=== PATIENT | female | born 1945 ===

== ENCOUNTER 2016-07-15 09:59 | Emergency (ER) | payer MEDICARE, OTHER ==
[2015-08-11 13:57] VITALS: BMI 18.3
[2016-07-15 22:49] LABS: ADD MANUAL DIFF? NO
[2016-07-16 04:59] LABS: BLOOD UREA NITROGEN 19 mg/dL (7-21); CALCIUM 10.1 mg/dL (8.4-10.5); CARBON DIOXIDE 30 mmol/L (21-33); CHLORIDE 100 mmol/L (98-107); GFR AFRICAN-AMERICAN > 60; GLUCOSE,RANDOM 101 mg/dL (70-110); MAGNESIUM 2.1 mg/dL (1.7-2.2); POTASSIUM 3.9 mmol/L (3.6-5.0); SODIUM 141 mmol/L (132-148)
[2016-07-16 12:13] LABS: PH,URINE 6.5 (4.7-8.0); URINE APPEARANCE CLEAR (CLEAR); URINE BILIRUBIN NEGATIVE (NEGATIVE); URINE BLOOD SMALL (NEGATIVE); URINE COLOR YELLOW (YELLOW); URINE GLUCOSE (UA) NEGATIVE (NEGATIVE); URINE KETONE NEGATIVE (NEGATIVE); URINE LEUKOCYTE ESTERASE NEGATIVE Leu/uL (NEGATIVE); URINE PROTEIN NEGATIVE mg/dL (<30 mg/dL); URINE UROBILINOGEN 0.2 E.U./dL (<1 E.U./dL)
[2016-07-16 12:14] LABS: URINE RBC 15 - 20 /hpf (0-2)
--- NOTE | 2016-07-16 15:29 | CT ---
PROCEDURE: CT abdomen pelvis dated 07/15/16 HISTORY: Right-sided flank pain. COMPARISON: No prior TECHNIQUE: Contiguous s axial images of the abdomen and pelvis. Oral contrast was administered. No IV contrast given. Coronal and Sagittal reformats generated. Radiation dose: Total exam DLP = 272.6 mGy-cm. This CT exam was performed using one or more of the following dose reduction techniques: Automated exposure control, adjustment of the mA and/or kV according to patient size, and/or use of iterative reconstruction technique. FINDINGS: LOWER THORAX: Minor passive atelectasis both posterior lower lung alaniz. No focal consolidation or effusion. No evidence of basilar pneumothorax. There is small hiatal hernia with slight wall thickening of the distal esophagus that could be due to protrusion of gastric mucosa. Esophagitis or other intrinsic/invasive wall lesion not excluded. LIVER: The liver exhibits normal size measuring nearly 12 cm in CC dimension. No obvious hepatic mass collection or calcification. GALLBLADDER AND BILE DUCTS: Gallbladder is physiologically distended. No evidence of intraluminal gallbladder calculi. PANCREAS: Visualized portions of the pancreas appear grossly unremarkable without obvious mass collection or calcification. No significant ductal dilatation. SPLEEN: Spleen exhibits normal size and attenuation pattern. ADRENALS: Slightly nodular appearing left adrenal gland ; the possibility of a small underlying nodule not completely excluded. Followup interval recommended to assess stability. KIDNEYS AND URETERS: Kidneys exhibit relatively symmetric size. No definitive evidence of nephrolithiasis. There is mild columnization of right ureter and to a lesser degree left ureter. BLADDER: Urinary bladder is markedly distended. Rule out urinary retention and/or bladder outlet obstruction. No evidence of intraluminal urinary bladder calculi. REPRODUCTIVE: The uterus appears somewhat compressed posteriorly by a markedly distended urinary bladder. APPENDIX: Unremarkable. BOWEL: Evaluation of the bowel is slightly limited due to the lack of oral contrast material. The stomach is incompletely distended which may account for slight thick-walled appearance. Gastritis or other intrinsic/ invasive wall lesion not excluded. Visualized loops of small bowel exhibit normal contour and caliber. No evidence of acute mechanical small bowel obstruction. There is a moderate amount of stool seen within the cecum, ascending and transverse colon consistent with fecal retention. . PERITONEUM: Unremarkable. No fluid collection. No free air. LYMPH NODES: Unremarkable. No enlarged lymph nodes. VASCULATURE: Unremarkable. No aortic aneurysm. BONES: No fracture or destructive lesion. There are multilevel chronic appearing compression endplate deformities involving the L5, L4, L1, T12 and T11 segments. Minor by concave fish-mouth endplate deformities seen at the L3 as well as T10 segments. No evidence of retropulsed fragments. Rounded sclerotic lower pole focus within the right femoral neck likely represents a osteoma OTHER FINDINGS: None. IMPRESSION: There is marked distention of the urinary bladder with mild columnization of the ureters more so on the right side. Rule out urinary retention versus bladder outlet obstruction. No evidence of nephrolithiasis. Slightly nodular appearing left adrenal gland.
[2016-07-16 16:40] LABS: BASO # 0.04 K/mm3 (0.0-2.0); BASO % 0.3 % (0.0-3.0); EOS % 0.2 % (1.5-5.0); GRAN # 10.15 (1.4-6.5); GRAN % 86.2 % (50.0-68.0); HEMATOCRIT 39.2 % (36.0-48.0); LYMPH # 1.3 (1.2-3.4); LYMPH % 10.6 % (22.0-35.0); MEAN CELL VOLUME 84.7 fL (80.0-105.0); MEAN CORPUSCULAR HEMOGLOBIN 28.1 pg (25.0-35.0); MEAN CORPUSCULAR HGB CONC 33.2 g/dl (31.0-37.0); MEAN PLATELET VOLUME 9.6 fl (7.0-11.0); MONO # 0.3 (0.1-0.6); MONO % 2.7 % (1.0-6.0); PLATELET COUNT 67 10^3/uL (120.0-450.0); RED CELL DISTRIBUTION WIDTH 13.8 % (11.5-14.5); WHITE BLOOD COUNT 11.8 10^3/ul (4.5-11.0)
[2016-07-20 03:25] LABS: ALB/GLOB RATIO 1.1 (1.1-1.8); ALKALINE PHOSPHATASE 96 U/L (38-133); ALT/SGPT 36 U/L (7-56); AST/SGOT 28 U/L (15-39); BILIRUBIN,TOTAL 0.3 mg/dL (0.2-1.3); TOTAL PROTEIN 6.2 g/dL (5.8-8.3)
== END 2016-07-15 23:00 | disposition home or self-care (01) ==
LOC: ED 09:59
DX: M54.9 Dorsalgia, unspecified (principal)

== ENCOUNTER 2016-08-10 16:42 | Inpatient (IN) | payer MEDICARE ==
[2016-08-10] MEDS ORDERED: Morphine 4 mg/ml ISec IVP STA (17:15)
--- NOTE | 2016-08-10 17:29 | ED PDOC ---
Arrival/HPI - General Chief Complaint: Back Pain Time Seen by Provider: 08/10/16 17:07 - History of Present Illness Narrative History of Present Illness (Text): 08/10/16 17:29 Patient presents complaining of back pain. States the location is in the mid- thoracic region. Worst with movement and palpation. Denies any trauma or injury. Denies cp or sob, denies ENCISO. Denies fevers/chills, denies IVDA, denies any lower extremity weakness/numbness/paresthesias. Pt denies saddle anesthesia. Denies any urinary freq or retention. Denies bowel dysfunction/ irregularity/incontinence/constipation. Past Medical History - Provider Review Nursing Documentation Reviewed: Yes - Infectious Disease Hx of Infectious Diseases: None - Tetanus Immunization Tetanus Immunization: Unknown - Cardiac Hx Pacemaker: No - Neurological Hx Paralysis: No - Renal Hx Kidney Stones: Yes - Hematological/Oncological Hx Blood Transfusions: No Hx Blood Transfusion Reaction: No - Musculoskeletal/Rheumatological Hx Musculoskeletal Disorders: Yes - Psychiatric Hx Depression: No Hx Emotional Abuse: No Hx Physical Abuse: No Hx Substance Use: No - Anesthesia Hx Anesthesia: Yes Hx Anesthesia Reactions: No Hx Malignant Hyperthermia: No - Suicidal Assessment Feels Threatened In Home Enviroment: No Family/Social History Family/Social History: Unknown Family HX Smoking Status: Never Smoked Hx Alcohol Use: No Hx Substance Use: No Allergies/Home Meds Allergies/Adverse Reactions: Allergies No Known Allergies Allergy (Verified 08/10/16 16:55) Physical Exam - Physical Exam Narrative Physical Exam (Text): - Review of Systems Constitutional: Normal. absent: Fatigue, Weight Change, Fevers Eyes: Normal ENT: denies sore throat, denies tristhmus Respiratory: Normal. absent: SOB, Cough, Sputum Cardiovascular: absent: Chest Pain, Palpitations, Syncope Gastrointestinal: Normal. absent: Abdominal Pain, Diarrhea, Nausea, Vomiting Genitourinary: Normal. absent: Dysuria, Frequency, Hematuria Musculoskeletal: back pain. absent: Arthralgias, Neck Pain Skin: no rashes, no erythema Neurological: absent: Focal Weakness Endocrine: Normal Hemo/Lymphatic: Normal Psychiatric: No suicidal or homicidal ideations Physical exam Patient appears age appropriate in no distress, speaking full sentences without difficulty Midline and paraspinal tenderness to palpation lower thoracic region. FROM of pt 's cervical, thoracic, lumbar, and sacral regions appreciated, active/passive without any difficulty. Lower extremities with full neurological and vascular intact. - Systems Exam Head: Present: Atraumatic, Normocephalic Pupils: Present: PERRL Extroacular Muscles: Present: EOMI Conjunctiva: Present: Normal Mouth: Present: Moist Mucous Membranes Neck: Present: Normal Range of Motion. No: MIDLINE TENDERNESS, Paraspinal Tenderness Respiratory/Chest: Present: Clear to Auscultation, Good Air Exchange. No: Respiratory Distress, Accessory Muscle Use, Tachypneic Cardiovascular: Present: Regular Rate and Rhythm, Normal S1, S2, Peripheal Pulses Present. No: Murmurs Abdomen: Present: Normal Bowel Sounds. No: Tenderness, Distention, Peritoneal Signs, Rebound, Guarding Upper Extremity: Present: Normal Inspection. No: Cyanosis, Edema Lower Extremity: Present: Normal Inspection. No: Edema Neurological: Present: GCS=15, Speech Normal, cranial nerves II through XII fully intact with no cerebellar abnormality, neurosensory fully intact. No focal neurological deficits. Skin: Present: Warm, Dry, Normal Color. No: Rashes Lymphatic: Present: OX3, NI, NC Psychiatric: Present: Alert, Oriented x 3, Normal Insight, Normal Concentration Vital Signs Reviewed: Yes Vital Signs Temp Pulse Resp BP Pulse Ox 08/10/16 16:59 99.1 F 89 19 151/75 H 96 Temperature: Afebrile Blood Pressure: Hypertensive Pulse: Regular Respiratory Rate: Normal Appearance: Positive for: Well-Appearing Pain Distress: None Mental Status: Positive for: Alert and Oriented X 3 Medical Decision Making ED Course and Treatment: 08/10/16 17:[address] Hernández, asked to admit to her service and obtain pre-op labs for back surgery tmr, NPO past midnight. Asked to place consult orders for Lobo De La Vega and James (pt has ITP). Pt has MRI result with T10 fx. pt aware of and agrees with plan - Medication Orders Current Medication Orders: Discontinued Medications Morphine Sulfate (Morphine) 4 mg IVP STAT STA Stop: 08/10/16 17:16 Disposition/Present on Arrival - Present on Arrival Any Indicators Present on Arrival: No History of DVT/PE: No History of Uncontrolled Diabetes: No Urinary Catheter: No History of Decub. Ulcer: No History Surgical Site Infection Following: None - Disposition Have Diagnosis and Disposition been Completed?: Yes Diagnosis: Back pain Disposition: HOSPITALIZED Disposition Time: 17:26 Patient Plan: Admission Patient Problems: Current Active Problems Problem Status Onset Back pain Acute Condition: FAIR
[2016-08-10 18:21] LABS: ADD MANUAL DIFF? NO
[2016-08-10 18:25] LABS: BASO # 0.02 K/mm3 (0.0-2.0); BASO % 0.3 % (0.0-3.0); GRAN # 5.38 (1.4-6.5); GRAN % 74.2 % (50.0-68.0); HEMATOCRIT 38.8 % (36.0-48.0); LYMPH # 1.5 (1.2-3.4); LYMPH % 20.4 % (22.0-35.0); MEAN CELL VOLUME 85.5 fL (80.0-105.0); MEAN CORPUSCULAR HEMOGLOBIN 27.8 pg (25.0-35.0); MEAN CORPUSCULAR HGB CONC 32.5 g/dl (31.0-37.0); MEAN PLATELET VOLUME 10.9 fl (7.0-11.0); MONO # 0.4 (0.1-0.6); MONO % 5.1 % (1.0-6.0); PLATELET COUNT 37 10^3/uL (120.0-450.0); RED CELL DISTRIBUTION WIDTH 13.6 % (11.5-14.5); WHITE BLOOD COUNT 7.3 10^3/ul (4.5-11.0)
[2016-08-10 18:39] LABS: PARTIAL THROMBOPLASTIN TIME 24.9 Seconds (23.7-30.8)
[2016-08-10 18:40] LABS: ALB/GLOB RATIO 1.3 (1.1-1.8); ALKALINE PHOSPHATASE 132 U/L (38-133); ALT/SGPT 40 U/L (7-56); AST/SGOT 26 U/L (15-39); BILIRUBIN,TOTAL 0.5 mg/dL (0.2-1.3); BLOOD UREA NITROGEN 22 mg/dL (7-21); CALCIUM 9.7 mg/dL (8.4-10.5); CARBON DIOXIDE 26 mmol/L (21-33); CHLORIDE 103 mmol/L (98-107); GFR AFRICAN-AMERICAN > 60; GLUCOSE,RANDOM 134 mg/dL (70-110); POTASSIUM 3.9 mmol/L (3.6-5.0); SODIUM 138 mmol/L (132-148); TOTAL PROTEIN 7.3 g/dL (5.8-8.3)
--- NOTE | 2016-08-10 18:47 | RAD ---
HISTORY: preop COMPARISON: Chest x-ray performed 08/10/16 TECHNIQUE: Chest, one view. FINDINGS: LUNGS: No focal consolidation. Please note that chest x-ray has limited sensitivity for the detection of pulmonary masses. PLEURA: No significant pleural effusion identified. No definite pneumothorax . CARDIOVASCULAR: The cardiomediastinal silhouette appears within normal limits of size. OSSEOUS STRUCTURES: No acute osseous abnormality identified. VISUALIZED UPPER ABDOMEN: Unremarkable. OTHER FINDINGS: None. IMPRESSION: No focal consolidation, significant pleural effusion, or definite pneumothorax identified.
[2016-08-10] MEDS: Sodium Chloride 0.9% 1,000 ML IV SCH (19:03)
[2016-08-10 21:00] VITALS: BMI 20.2
[2016-08-10] MEDS ORDERED: Pneumococcal 23-Valent Vaccine IM ONE (21:00)
[2016-08-11] MEDS: HYDROmorphone 0.5 mg/0.5 ml ISec IVP PRN ×3 (06:28→18:21)
[2016-08-11 10:48] LABS: ADD MANUAL DIFF? NO
[2016-08-11 10:51] LABS: BASO # 0.03 K/mm3 (0.0-2.0); BASO % 0.4 % (0.0-3.0); EOS % 0.4 % (1.5-5.0); GRAN # 5.04 (1.4-6.5); GRAN % 60.7 % (50.0-68.0); HEMATOCRIT 39.7 % (36.0-48.0); LYMPH # 2.5 (1.2-3.4); LYMPH % 29.7 % (22.0-35.0); MEAN CELL VOLUME 85.7 fL (80.0-105.0); MEAN CORPUSCULAR HEMOGLOBIN 28.3 pg (25.0-35.0); MEAN PLATELET VOLUME 10.4 fl (7.0-11.0); MONO # 0.7 (0.1-0.6); MONO % 8.8 % (1.0-6.0); PLATELET COUNT 32 10^3/uL (120.0-450.0); RED CELL DISTRIBUTION WIDTH 13.5 % (11.5-14.5); WHITE BLOOD COUNT 8.3 10^3/ul (4.5-11.0)
[2016-08-11 11:12] LABS: ALB/GLOB RATIO 1.3 (1.1-1.8); ALKALINE PHOSPHATASE 129 U/L (38-133); ALT/SGPT 38 U/L (7-56); AST/SGOT 25 U/L (15-39); BILIRUBIN,TOTAL 0.7 mg/dL (0.2-1.3); BLOOD UREA NITROGEN 14 mg/dL (7-21); CALCIUM 9.1 mg/dL (8.4-10.5); CARBON DIOXIDE 26 mmol/L (21-33); CHLORIDE 104 mmol/L (98-107); GFR AFRICAN-AMERICAN > 60; GLUCOSE,RANDOM 86 mg/dL (70-110); POTASSIUM 3.5 mmol/L (3.6-5.0); SODIUM 139 mmol/L (132-148)
[2016-08-11] MEDS ORDERED: DiphenhydrAMINE 50 mg/ml Inj ONE (13:50)
[2016-08-11] MEDS ORDERED: Lidocaine 2% Inj (20ml) ONE ×2 (14:33→15:57)
[2016-08-11] MEDS ORDERED: Iohexol 350mgl/ml 50 ML ONE (14:33)
[2016-08-11] MEDS ORDERED: Midazolam 2 MG/2 ML VIAL ONE (15:20)
--- NOTE | 2016-08-11 16:13 | CARD ---
APPROVED REPORT EKG Measurement Heart [id number] <Conclusion> Normal sinus rhythm Normal ECG
[2016-08-11] MEDS: Sodium Chloride 0.45% 1,000 ML IV SCH (18:19)
[2016-08-11] MEDS: Sodium Chloride 0.9% 1,000 ML IV SCH (18:19)
--- NOTE | 2016-08-11 19:40 | VASCULAR ---
PROCEDURE: 1. T10 kyphoplasty. 2. T10 vertebral body biopsy. HISTORY: Severe, refractory back pain. Unresponsive to bed rest and analgesics. Acute T10 compression fracture on MRI. History ITP. PHYSICIAN(S): Walker De La Vega MD. TECHNIQUE: he relative risks and indications of the procedure were explained to the patient and her family and informed written consent obtained. The patient was placed prone on the arteriography table and the thoracolumbar spine prepped and draped in the usual sterile fashion. Conscious sedation and monitoring were provided throughout the procedure by a nurse. The T10 vertebral body was carefully localized with fluoroscopy. The skin and soft tissues were anesthetized with 1% Xylocaine. Under direct fluoroscopic guidance, bilateral transpedicular bone needles were placed into the posterior aspect of the T10 vertebral body. Through the right needle, a biopsy of the [id number] body was performed. The specimen was sent to histology. Next bilateral 10 mm bone balloons were placed in the superior and anterior portion of the T10 vertebral body. They were inflated to approximately 3.5 cc apiece with dilute contrast. The balloons were removed and 5 cc of barium-impregnated PMMA cement instilled into the T10 vertebral body. Minimal right lateral extravasation was seen. The bone needles were removed. The patient tolerated the procedure well. IMPRESSION: 1. Fluoroscopically-guided T10 kyphoplasty. 2. Fluoroscopic T10 vertebral body biopsy.
[2016-08-11] MEDS: Oxycodone/Acetaminophen 5/325 mg Tab PO PRN (21:24)
[2016-08-11] MEDS ORDERED: Potassium Chloride 20 mEq ER Tab PO ONE (21:50)
--- NOTE | 2016-08-11 22:28 | CON ---
DATE: 08/11/2016 This is the patient's hospital visit on the medical floor. For Dr. Ni. Consult. CHIEF COMPLAINT: Back pain. HISTORY OF PRESENT ILLNESS: The patient is a 71-year-old Israeli-speaking female who reported to the Emergency Room. The patient of Dr. Hernández. Reported to the Emergency Room complaining of severe ba ck pain, worse with movement and denies any trauma with the patient now noted to have significant thr ombocytopenic indices. She is otherwise reporting that the analgesics help her pain to a certain ext ent with consideration for kyphoplasty by Dr. Walker De La Vega. PAST MEDICAL HISTORY: Significant for back pain, recent onset with history of ITP with recently diag nosed T10 fracture. The patient denies any other significant past medical history. ALLERGIES: No known allergies. MEDICATIONS: Include Tylenol for pain. FAMILY HISTORY AND SOCIAL HISTORY: Noncontributory. Nonsmoker and nonethanolic. REVIEW OF SYSTEMS: Essentially negative to questioning except as above. PHYSICAL EXAMINATION: VITAL SIGNS: Temperature 98.8, pulse 75, respirations 18, blood pressure 156/78, pulse ox 100%. HEENT: Unremarkable. NECK: Supple. HEART: Regular rate. LUNGS: Clear. ABDOMEN: Soft, nontender. EXTREMITIES: No edema. NEUROLOGIC: Awake and alert with increased tenderness to gentle palpation to the mid upper back. SKIN: Otherwise, warm, dry and clear. VITAL SIGNS: Temperature 99.1, pulse 89, respirations 19, blood pressure 151/75, pulse ox 96%. LABORATORY DATA: The patient had a chest x-ray done yesterday. It was read as no focal consolidatio n, significant or pneumothorax. The patient had a thoracic MRI done 10 days prior. It was emeterio d as mild compression fracture at T10 with mild marrow edema suggesting acute or subacute fracture. A lumbar spine MRI was also done that day. It was read as no evidence of spinal stenosis or focal he rniation, no acute compression fractures. She had a CT scan of her abdomen and pelvis done on 07/15/2016. It was read as moderate distension o f the bladder, mild colonization of the ureters, rule out urinary retention versus bladder obstructio n. No evidence of nephrolithiasis, slightly nodular appearing left adrenal gland. The labs for this patient were done. White blood cell count of 8.3, hemoglobin 13.1, hematocrit of 3 9.7, platelet count of 32,000 with a manual count of 55,000 done today. Her INR yesterday was 1.0. A chem panel from today showed a potassium of 3.5, otherwise normal. ASSESSMENT: Severe thrombocytopenia, ITP history, compression fracture at T10 with severe pain. PLAN: The plan for this patient is for kyphoplasty as per Dr. Walker De La Vega with platelets to be transfused prior to the procedure with continuation of the present medical regimen with analgesics f or her pain. We will monitor clinically and with labs. There is no evidence of active bleeding, no petechia noted or skin changes. We will monitor clinically and with labs. Carlo Jaime MD cc: [id number] TT: 08/11/2016 22:28:24 Confirmation # [id number] Dictation # [id number] mn
[2016-08-12] MEDS: Sodium Chloride 0.45% 1,000 ML IV SCH (05:46)
[2016-08-12 06:55] LABS: ADD MANUAL DIFF? NO
[2016-08-12 07:08] LABS: ALB/GLOB RATIO 1.2 (1.1-1.8); ALKALINE PHOSPHATASE 133 U/L (38-133); ALT/SGPT 41 U/L (7-56); AST/SGOT 28 U/L (15-39); BILIRUBIN,TOTAL 0.8 mg/dL (0.2-1.3); BLOOD UREA NITROGEN 12 mg/dL (7-21); CALCIUM 9.3 mg/dL (8.4-10.5); CARBON DIOXIDE 24 mmol/L (21-33); CHLORIDE 103 mmol/L (98-107); GFR AFRICAN-AMERICAN > 60; GLUCOSE,RANDOM 80 mg/dL (70-110); POTASSIUM 4.1 mmol/L (3.6-5.0); SODIUM 136 mmol/L (132-148); TOTAL PROTEIN 6.9 g/dL (5.8-8.3)
[2016-08-12 07:10] LABS: BASO # 0.03 K/mm3 (0.0-2.0); BASO % 0.4 % (0.0-3.0); EOS % 0.3 % (1.5-5.0); GRAN # 4.77 (1.4-6.5); HEMATOCRIT 36.1 % (36.0-48.0); LYMPH # 1.6 (1.2-3.4); MEAN CELL VOLUME 85.7 fL (80.0-105.0); MEAN CORPUSCULAR HGB CONC 32.7 g/dl (31.0-37.0); MEAN PLATELET VOLUME 8.9 fl (7.0-11.0); MONO # 0.7 (0.1-0.6); MONO % 9.3 % (1.0-6.0); PLATELET COUNT 62 10^3/uL (120.0-450.0); RED CELL DISTRIBUTION WIDTH 13.4 % (11.5-14.5); WHITE BLOOD COUNT 7.1 10^3/ul (4.5-11.0)
[2016-08-12] MEDS: Oxycodone/Acetaminophen 5/325 mg Tab PO PRN (08:25)
--- NOTE | 2016-08-12 08:31 | HP ---
CHIEF COMPLAINT: Intractable back pain. HISTORY OF PRESENT ILLNESS: The patient is a 71-year-old [place]-speaking patient who was sent to the Emergency Room from my office. Actually, patient has history of idiopathic thrombocytopenic purpura, and Dr. Ni is patient' s regular physician. The patient was sent to my office last week for back pain and my office gave medications and sent her to MRI, and her MRI results came back that there is a T10 thoracic vertebral compression fracture. Then I spoke to Dr. Ni and personally called Dr. Walker De La Vega. Plan was to put a kyphoplasty, but the patient's platelets were low then plan was to give her platelet transfusion and do kyphoplasty. The patient's pain is intractable. Nothing is working for her, and she used to be a very active lady, taking care of her . Length of time discussion done with the patient's both daughters and family friends. PAST MEDICAL HISTORY: Back pain, ITP with recently diagnosis of T10 compression fracture. ALLERGIES: The patient is not allergic to any medications. HOME MEDICATIONS: Tylenol, oxycodone, tramadol. FAMILY HISTORY: Father and mother noncontributory. HABITS: Never smoked, no drugs, no ethanol. REVIEW OF SYSTEMS: The patient was seen and examined on the bedside today early in the morning. Family was around. Length of time discussion done. All questions answered. Consent got for platelet transfusion and whole procedure explained to one of the daughters. All questions are answered. PHYSICAL EXAMINATION: VITAL SIGNS: Temperature 98.8, pulse 88, blood pressure 153/70, respiratory rate 18. HEENT: Head normocephalic, atraumatic. Eyes: PERRLA. Extraocular muscles intact. Conjunctivae are clear. Nose patent. Mucous membranes moist. NECK: Supple. No carotid bruit, JVD or thyromegaly. CHEST: Bilaterally symmetrical. HEART: S1, S2 positive. LUNGS: Clear to auscultation. ABDOMEN: Soft, bowel sounds present. No organomegaly. EXTREMITIES: No edema, no cyanosis. NEUROLOGIC: The patient is awake, alert and moving all 4 extremities. No focal deficits. LABORATORY DATA: White blood cells 8.3, hemoglobin 13.1, hematocrit 39.7; platelets 37, repeat is 32. Sodium 139, potassium 3.5 (I replaced the potassium ), BUN is 14, creatinine 0.6, glucose of 50. Random glucose 86. ASSESSMENT AND PLAN: The patient is a 71-year-old lady with leukopenia, idiopathic thrombocytopenic purpura; hypokalemia, replaced; hyperglycemia. Coagulopathy is within normal limits. Has intractable back pain, admitted for that, T10 thoracic vertebral compression fracture. Recent history of idiopathic thrombocytopenic purpura. So, Dr. Walker De La Vega for kyphoplasty. Will repeat labs. Maybe patient needs physical therapy or TCU. Will follow up. Corazon Hernández MD cc: [id number] TT: 08/12/2016 08:30:20 mn [email or web address]
[2016-08-12] MEDS: HYDROmorphone 0.5 mg/0.5 ml ISec IVP PRN ×2 (13:01→20:30)
--- NOTE | 2016-08-12 22:57 | PN ---
DATE: 08/12/2016 Hospital visit on the medical floor. For Dr. Ni. SUBJECTIVE: The patient is a 71-year-old Mohawk-speaking female with history ITP with severe back p ain for which kyphoplasty was done yesterday after platelets were given as per protocol and Dr. William riddle's recommendation. Done by Dr. Walker De La Vega. With this, the patient is reporting that the pain is modestly improved with the patient resting comfortably. PHYSICAL EXAMINATION: VITAL SIGNS: Temperature 98.2, pulse 94, respirations 20, blood pressure 117/74, pulse ox 97%. HEENT: Unremarkable. NECK: Supple. HEART: Regular rate. LUNGS: Clear. ABDOMEN: Soft, nontender. EXTREMITIES: No edema. SKIN: Warm, dry and clear with decreased range of motion to the low back. NEUROLOGIC: Awake and alert. LABORATORY DATA: The patient's labs were done. White blood cell count of 7.1, hemoglobin 11.8, jeremiah tocrit 36.1, platelet count of 62,000, 75,000. Her chem metabolic panel was completely within normal limits this visit. ASSESSMENT: Intractable pain, T10 compression fracture, status post kyphoplasty, idiopathic thromboc ytopenia. PLAN: The patient is to continue present medical regimen as per Dr. Hernández with analgesics given for her pain and discharge once the patient is stable. Carlo Jaime MD cc: [id number] TT: 08/12/2016 22:56:49 Confirmation # [id number] Dictation # [id number] mn
[2016-08-13] MEDS ORDERED: Pantoprazole 40 mg EC Tab PO SCH (06:30)
[2016-08-13 07:24] LABS: MEAN CELL VOLUME 85.2 fL (80.0-105.0); MEAN CORPUSCULAR HEMOGLOBIN 28.5 pg (25.0-35.0); MEAN CORPUSCULAR HGB CONC 33.4 g/dl (31.0-37.0); MEAN PLATELET VOLUME 10.5 fl (7.0-11.0); RED CELL DISTRIBUTION WIDTH 13.3 % (11.5-14.5); WHITE BLOOD COUNT 8.2 10^3/ul (4.5-11.0)
[2016-08-13 07:54] VITALS: BP 126/64; PULSE 68; RESP 18; TEMP 98.4; O2SAT 96
[2016-08-13] MEDS: HYDROmorphone 0.5 mg/0.5 ml ISec IVP PRN (09:38)
--- NOTE | 2016-08-13 09:54 | PN ---
DATE: 08/12/2016 SUBJECTIVE: The patient was seen and examined on 08/12/2016 on the bedside, sitting on the chair. D jesus and son were sitting on the bedside also. The patient did physical therapy. Her pain is get ting better; no more severe, status post kyphoplasty after infusion of platelets. No swelling of the legs. No nausea, vomiting, or diarrhea. PHYSICAL EXAMINATION: VITAL SIGNS: Temperature is 98.2, pulse 94, respiratory rate 20, blood pressure 107/74, pulse oximet ry 97%. HEENT: Head normocephalic, atraumatic. Eyes: PERRLA. Extraocular muscles intact. Conjunctivae ar e clear. Nose patent. Mucous membranes moist. NECK: Supple. No carotid bruit. No JVD or thyromegaly. CHEST: Bilaterally symmetrical. HEART: S1, S2 positive. LUNGS: Clear to auscultation. ABDOMEN: Soft. Bowel sounds present. No organomegaly. EXTREMITIES: No edema, no cyanosis. NEUROLOGIC: The patient is awake, alert, moving all 4 extremities. No focal deficits. LABORATORY DATA: White blood cells 7.4, hemoglobin 11.8, hematocrit 36.1, platelets are 62,000, stat us post platelets transfusion. ASSESSMENT AND PLAN: The patient is a 71-year-old lady with intractable back pain, T10 compression f racture, status post kyphoplasty by Dr. Walker De La Vega, feeling better; idiopathic thrombocytopenic purp ura; degenerative joint disease, getting physical therapy. Discussion done with the patient, nursing staff and patient's family members, especially daughter. The patient is getting energetic and physi lisa therapy. Will follow up. Corazon Hernández MD cc: [id number] TT: 08/13/2016 08:44:45 Confirmation # [id number] Dictation # [id number] josé miguel
[2016-08-13] MEDS ORDERED: POLYETHYLENE GLYCOL 3350 17 GM/Dose PACKET PO SCH (10:00)
[2016-08-13 10:26] LABS: PH,URINE 6.5 (4.7-8.0); URINE BILIRUBIN NEGATIVE (NEGATIVE); URINE BLOOD MODERATE (NEGATIVE); URINE GLUCOSE (UA) NEGATIVE (NEGATIVE); URINE KETONE NEGATIVE (NEGATIVE); URINE LEUKOCYTE ESTERASE SMALL Leu/uL (NEGATIVE); URINE PROTEIN NEGATIVE mg/dL (<30 mg/dL); URINE UROBILINOGEN 0.2 E.U./dL (<1 E.U./dL)
[2016-08-13 10:28] LABS: URINE APPEARANCE SL CLOUDY (CLEAR); URINE COLOR YELLOW (YELLOW)
[2016-08-13 10:31] LABS: URINE WBC 0 - 2 /hpf (0-6)
--- NOTE | 2016-08-14 15:08 | DS ---
CHIEF COMPLAINT: Intractable back pain. HISTORY OF PRESENT ILLNESS: The patient is a 71-year-old female, Citizen Of The [place] speaking, private patient of Dr. Ni who came in my office 2 times, with intractable back pain. MRI was done, it shows thoracic vertebral compression fracture. I spoke with Dr. Ni, then I spoke with Dr. Walker De La Vega. The patient was having intractable back pain, even Percocet was not working. We sent patient to the Emergency Room. We admitted the patient, IV Dilaudid and morphine given. Dr. Walker De La Vega did kyphoplasty. After that, the patient felt a little bit better. Physical therapy given and physical therapy recommended in house therapy and we transferred the patient to TCU. PAST MEDICAL HISTORY: ITP with recently diagnosed T10 compression fracture. ALLERGIES: The patient is not allergic to any medications. HOME MEDICATIONS: Tylenol, oxycodone, tramadol. FAMILY HISTORY: Father and mother noncontributory. HABITS: Never smoked, no drugs, no ethanol. REVIEW OF SYSTEMS: The patient is seen and examined on the bedside, looks comfortable. No nausea, vomiting, or diarrhea. No hematuria or hematochezia. No swelling of the leg. No chest pain, no palpitation, no headache, no dizziness. Still having back pain, but getting better. PHYSICAL EXAMINATION: VITAL SIGNS: Temperature 98.4, pulse 60, blood pressure 122/64, respiratory rate 18. HEAD: Normocephalic, atraumatic. Eyes: PERRLA. Extraocular movements intact. Conjunctivae. Nose patent. Mucous membranes moist. NECK: Supple. No carotid bruit, JVD or thyromegaly. CHEST: Bilaterally symmetrical. HEART: S1, S2 positive. LUNGS: Clear to auscultation. ABDOMEN: Soft. Bowel sounds present. No organomegaly. EXTREMITIES: No edema, no cyanosis. NEUROLOGIC: The patient is awake, alert, moving all 4 extremities. No focal deficits. MEDICATIONS: Colace, Dilaudid, MiraLax, Pepcid, Percocet, Protonix, Tylenol, Zofran. LABORATORY DATA: White blood cells 8. hemoglobin 12.7, hematocrit 38.0, platelets 59. Sodium 136, potassium 4.1, BUN 12, creatinine 0.6. ASSESSMENT AND PLAN: The patient, 71-year-old lady, with thrombocytopenia, history of hyperkalemia improved, hyperglycemia, hematuria, urinary tract infection, came with intractable back pain at T10 compression fracture, status post kyphoplasty, idiopathic thrombocytopenic purpura. Got physical therapy. Physical therapy suggested transfer the patient to [facility]. We will get physical therapy, pain management. We will follow up. Corazon Hernández MD cc: [id number] TT: 08/14/2016 15:07:19 jn MTDD
== END 2016-08-13 14:44 | DRG 478 ==
LOC: ED 16:42 → ERH 17:37 → 5RNO 20:01
PROVIDERS: ADMIT Internal Medicine; ATTEND Internal Medicine
PROC: 0PS43ZZ Reposition Thoracic Vertebra, Percutaneous Approach (ICD-10-PCS; principal; 2016-08-11)
PROC: 0P943ZX Drainage of Thoracic Vertebra, Percutaneous Approach, Diagnostic (ICD-10-PCS; 2016-08-11)
PROC: 0PU43JZ Supplement Thoracic Vertebra with Synthetic Substitute, Percutaneous Approach (ICD-10-PCS; 2016-08-11)
DX: M48.54XA Collapsed vertebra, not elsewhere classified, thoracic region, initial encounter for fracture (principal); D69.3 Immune thrombocytopenic purpura; E87.6 Hypokalemia; R73.9 Hyperglycemia, unspecified

== ENCOUNTER 2016-08-13 14:49 | Inpatient (IN) | payer OTHER ==
[2016-08-13 16:12] VITALS: BMI 20.3
[2016-08-14] MEDS: Pantoprazole 40 mg EC Tab PO SCH (05:48)
[2016-08-14] MEDS: Oxycodone/Acetaminophen 5/325 mg Tab PO PRN ×2 (05:59→13:26)
[2016-08-14] MEDS: POLYETHYLENE GLYCOL 3350 17 GM/Dose PACKET PO SCH (09:44)
--- NOTE | 2016-08-14 23:16 | CON ---
DATE: 08/14/2016 The patient is currently in room 313, bed 1 in [facility]. HISTORY OF PRESENT ILLNESS: A 71-year-old female well known to us from prior admissions and prior vi sits to the office who has a diagnosis of ITP documented on bone marrow aspiration biopsy done last y ear, treated initially with steroids and responded to prednisone 20 mg once a day with a platelet cou nt that has almost normalized. The prednisone has to be decreased. The patient has significant symp toms ____. She has a documented H. pylori infection in the past which has been treated. The patient developed a spontaneous fracture of the metatarsal of the left foot, which healed. She came into the office complaining of severe back pain of new onset that happened spontaneously. The patient was in the ER for the same and the ER physician had done a CAT scan of the abdomen and found nothing specif ic. When she came to see us, our clinical impression was at that time, she could be developing a com pression fracture of the dorsal spine. She was sent back to her primary medical doctor, who ordered an MRI and MRI showed acute fracture at T10 with marrow edema. The patient was then sent over to the Emergency Room after consultation with Dr. Walker De La Vega for possible kyphoplasty to alleviate the alivia n. Pain was excruciating, on a pain scale of 0 to 10, it was at least 10. She was on Percocet 5/325 one every 4 hours without much pain relief. The patient could not even move or get off the table or get up from a lying down position because of the significant increase in pain. The patient, since a dmission, had a kyphoplasty done. She had a platelet transfusion. Manual platelet count prior to e procedure was 55,000 and up to 65,000. The patient currently is not on prednisone. She is just on Colace, hydromorphone, polyethylene glycol, Pepcid, Tylenol p.r.n. for pain and pantop razole along with Zofran. I had spoken to the family earlier on prior to the admission. We may have to assess her for other mo dalities of treatment including IV gamma globulin to help with the platelets while we are also explor ing the possibility of trying to get her on Promacta or other drug ____ for the thrombocytopenia. REVIEW OF SYSTEMS: The patient tells me that the back pain is slightly better. She is participating in physical therapy. Pain on a pain scale of 0 to 10 is still at least 5 or 6, but she is able to h ave more mobility at this time. Most of the interpretation as she only speaks Swedish was through he r daughter, who was on the phone and through the nursing personnel on the floor. PHYSICAL EXAMINATION: GENERAL: The patient is awake, alert, and oriented and in no acute distress. HEENT: Head is normocephalic and atraumatic. Examination of the oropharynx reveals no oropharyngeal lesions. NECK: Supple. There is no adenopathy. LUNGS: Clear to percussion and auscultation. The patient still has mid back pain where she had the kyphoplasty done. ABDOMEN: Soft and nontender. Bowel sounds are present. No masses are felt. EXTREMITIES: Reveals no cyanosis, clubbing or edema. ASSESSMENT NOTES AND PLAN: Idiopathic thrombocytopenic purpura by history with borderline thrombocyt openia, currently on medications and participating in physical therapy for deconditioning. I spoke t o the daughter at great length over the phone and plan once the patient is stabilized here in rehab, I will try to get her on a program either for IV gamma globulin or try to get her on Promacta. I wou ld also encourage that we probably get a bone densitometry before she is discharged so we will have a n idea about her bone density as well. Routine post exam instructions have been given to this patien t and will speak to PMD, Dr. Hernández as well. Ally Ni MD cc: [id number] TT: 08/14/2016 23:16:22 Confirmation # [id number] Dictation # [id number] sn
[2016-08-15] MEDS: Pantoprazole 40 mg EC Tab PO SCH (05:30)
[2016-08-15 08:28] LABS: ADD MANUAL DIFF? NO
[2016-08-15 08:42] LABS: BASO # 0.04 K/mm3 (0.0-2.0); BASO % 0.6 % (0.0-3.0); EOS # 0.1 (0.0-0.7); EOS % 1.6 % (1.5-5.0); GRAN # 4.66 (1.4-6.5); GRAN % 67.4 % (50.0-68.0); HEMATOCRIT 42.3 % (36.0-48.0); LYMPH # 1.7 (1.2-3.4); LYMPH % 23.9 % (22.0-35.0); MEAN CORPUSCULAR HGB CONC 32.6 g/dl (31.0-37.0); MONO # 0.5 (0.1-0.6); MONO % 6.5 % (1.0-6.0); RED CELL DISTRIBUTION WIDTH 13.1 % (11.5-14.5); WHITE BLOOD COUNT 6.9 10^3/ul (4.5-11.0)
[2016-08-15 08:49] LABS: PLATELET COUNT 39 10^3/uL (120.0-450.0)
[2016-08-15 08:59] LABS: ALB/GLOB RATIO 1.2 (1.1-1.8); ALKALINE PHOSPHATASE 134 U/L (38-133); ALT/SGPT 30 U/L (7-56); AST/SGOT 21 U/L (15-39); BILIRUBIN,TOTAL 0.6 mg/dL (0.2-1.3); BLOOD UREA NITROGEN 15 mg/dL (7-21); CALCIUM 9.5 mg/dL (8.4-10.5); CARBON DIOXIDE 30 mmol/L (21-33); CHLORIDE 99 mmol/L (98-107); GFR AFRICAN-AMERICAN > 60; GLUCOSE,RANDOM 138 mg/dL (70-110); POTASSIUM 4.4 mmol/L (3.6-5.0); SODIUM 138 mmol/L (132-148); TOTAL PROTEIN 7.6 g/dL (5.8-8.3)
[2016-08-15] MEDS: POLYETHYLENE GLYCOL 3350 17 GM/Dose PACKET PO SCH (10:15)
[2016-08-15] MEDS: Oxycodone/Acetaminophen 5/325 mg Tab PO PRN ×2 (10:16→19:28)
--- NOTE | 2016-08-15 10:19 | HP ---
CHIEF COMPLAINT: Back pain. HISTORY OF PRESENT ILLNESS: The patient, 71-year-old female, has history of ITP documented on bone marrow aspiration biopsy done 1 year ago, treated initially with steroid and responded to prednisone 20 once a day, and with a platelet count that has almost normalized. The prednisone was to be discontinued. The patient has significant symptoms now. She has documented H. pylori infection in the past, which was treated. The patient developed spontaneous fracture of the metatarsal of the left foot, which healed. The patient was complaining about severe back pain and came to the Emergency Room. They did a CAT scan of the abdomen and could not find anything. The patient was seen by Dr. Ni again about back pain, and the patient was sent in my office. I did MRI of the back that showed T10 compression fracture with marrow edema. Then I spoke to Dr. Ni spoke with Dr. Walker De La Vega. The patient's pain was like 10/10. ____ even Percocet was not helping her. I sent her to the [facility] Emergency Room. The patient was admitted, and Dr. Walker De La Vega did kyphoplasty. After that, the pain is getting better, and before kyphoplasty, the patient received platelet transfusion that improved the number of platelets. After procedure, the patient started feeling better. Got physical therapy. They recommended rehab. Transferred the patient to TCU. In TCU, the patient is getting physical therapy, and the patient is getting Colace , hydromorphone, MiraLax, Pepcid, Tylenol p.r.n., along with Zofran. ALLERGIES: The patient is not allergic to any medication. HABITS: No smoking, no drugs, no ethanol. FAMILY HISTORY: Father and mother noncontributory. PAST MEDICAL HISTORY: As above. REVIEW OF SYSTEMS: The patient is examined on the bedside. I spoke to the family friend and daughter . The patient is getting physical therapy. Now, pain is on the scale of 5. No history of constipation. No nausea or vomiting. no fever, no chills. No headache, no dizziness. PHYSICAL EXAMINATION: VITAL SIGNS: Temperature 98.5, pulse 86, blood pressure 100/ 50 , respiratory rate 16. HEENT: Head normocephalic, atraumatic. Eyes: PERRLA. Extraocular muscles intact. Conjunctivae are clear. Nose patent. Mucous membranes moist. NECK: Supple. No carotid bruit, no thyromegaly. CHEST: Bilaterally symmetrical. HEART: S1, S2 positive. LUNGS: Clear to auscultation. ABDOMEN: Soft. Bowel sounds are present. No organomegaly. EXTREMITIES: No edema, no cyanosis. NEUROLOGIC: The patient is awake, alert, and moving all 4 extremities. No focal deficits. MEDICATIONS: Colace, Dilaudid, MiraLax, Pepcid, Percocet, Protonix, Tylenol, Zofran. LABORATORY DATA: We do not have recent labs today, but I reviewed old labs. ASSESSMENT AND PLAN: The patient is a 71-year-old lady with idiopathic thrombocytopenic purpura by history with borderline thrombocytopenia, currently on medication and participating in physical therapy for deconditioning, has history of T10 thoracic vertebral compression fracture, status post kyphoplasty. Length of time discussion done with the patient's family and friend. I reviewed Dr. Ni's note. He will try other IV gammaglobulin or will try to get her on Promacta, and he wanted to do before she is discharged. I appreciated Dr. Ni's input. The patient is getting physical therapy. Pain is getting under control. Gastrointestinal/deep vein thrombosis prophylaxis. Repeat labs. We will follow up. Corazon Hernández MD cc: [id number] TT: 08/15/2016 10:18:19 jn MTDD
--- NOTE | 2016-08-15 16:07 | PN ---
DATE: 08/15/2016 SUBJECTIVE: The patient was seen and examined on the bedside, looks comfortable. No nausea, vomitin g, or diarrhea. No hematuria or hematochezia. Back pain is getting better as per the patient. Five days she does not have bowel movement. Then, we started the patient on lactulose. Getting physical therapy. Pain is improving. PHYSICAL EXAMINATION: VITAL SIGNS: Temperature 98.5, pulse 86, blood pressure 100/56, respiratory rate 20. HEENT: Head normocephalic, atraumatic. Eyes PERRLA. Extraocular muscles intact. Conjunctivae are clear. Nose patent. Mucous membranes moist. NECK: Supple. No carotid bruit, JVD or thyromegaly. CHEST: Bilaterally symmetrical. HEART: S1, S2 positive. LUNGS: Clear to auscultation. ABDOMEN: Soft. Bowel sounds present. No organomegaly. EXTREMITIES: No edema, no cyanosis. NEUROLOGIC: The patient is awake, alert, moving all 4 extremities, no focal deficits. MEDICATIONS: Colace, Dilaudid, Enulose, MiraLax, Pepcid, Percocet, Protonix, Tylenol, and Zofran. LABORATORY DATA: White blood cells 6.9, hemoglobin 13.8, hematocrit 42.3, platelets 39. Sodium 138, potassium 4.4, BUN 15, creatinine 0.7, glucose 138. ASSESSMENT AND PLAN: The patient is a 71-year-old lady with thrombocytopenia, hyperglycemia. Actual ly, she has idiopathic thrombocytopenic purpura, getting treatment from Dr. Ni, history of T10 t horacic vertebral compression fracture, status post kyphoplasty, constipation, lactulose started, his tory of bone marrow aspiration biopsy for the diagnosis of idiopathic thrombocytopenic purpura, histo ry of Helicobacter pylori infection in the past, got treatment, spontaneous fracture of the metatarsa l of the left foot, got healed. Is getting physical therapy and pain management and improving. We w ill follow up. Corazon Hernández MD cc: [id number] TT: 08/15/2016 16:07:07 Confirmation # [id number] Dictation # [id number] karla
[2016-08-16] MEDS: Pantoprazole 40 mg EC Tab PO SCH (05:44)
--- NOTE | 2016-08-16 08:05 | PN ---
DATE: 08/15/2016 The patient TR 313, bed 1. SUBJECTIVE: The patient's family is visiting her. Her daughter is accompanying her along with her s on-in-law. The patient tells me the pain is still around 6, but she is participating in physical the rapy, overall maneuverability is better, and I told her it might take some time for inflammatory marti ges around the spine where she had a kyphoplasty done to get better, and eventually her pain will get resolved. In the meantime, I told her we are going to have to look for other alternatives for manag ing her thrombocytopenia, which might include either IV gammaglobulin, or a pill called Promacta, or an injection called Nplate once she stabilized. ____ repeat platelet count done yesterday. This shows a manual platelet count is around 35,000. The patient is still requiring Percocet for pain control at this time. PHYSICAL EXAMINATION: GENERAL: The patient is awake, alert, and oriented, in no distress. HEENT: Head is normocephalic, atraumatic. Conjunctivae are pale. Examination of the oropharynx rev eals no oropharyngeal lesions. NECK: Supple. There is no adenopathy. LUNGS: Clear to percussion and auscultation. ABDOMEN: Reveals it to be soft, nontender. The patient has still mid back discomfort where she had the kyphoplasty done. EXTREMITIES: Reveal no cyanosis, clubbing, or edema. I was able to make the patient walk a little b it, and she definitely seems to have more maneuverability now at this time. PLAN: Continue deconditioning and physical therapy in the [facility]. I will speak to PMD regarding other alternative treatment plans for her thrombocytopenia at this time. ____ active intervention ____ is recommended while she is in the TCU for her thrombocytopenia. Ally Ni MD cc: [id number] TT: 08/15/2016 12:55:28 Confirmation # [id number] Dictation # [id number] alexandria
[2016-08-16] MEDS: POLYETHYLENE GLYCOL 3350 17 GM/Dose PACKET PO SCH (09:56)
[2016-08-16] MEDS: Oxycodone/Acetaminophen 5/325 mg Tab PO PRN (09:57)
[2016-08-16] MEDS: HYDROmorphone 0.5 mg/0.5 ml ISec IVP PRN (18:15)
[2016-08-17] MEDS: Pantoprazole 40 mg EC Tab PO SCH (05:56)
--- NOTE | 2016-08-17 10:38 | PN ---
DATE: 08/16/2016 SUBJECTIVE: The patient was seen and examined on 08/16/2016, sitting on the chair. No nausea, vomiti ng, or diarrhea. No hematuria or hematochezia. No swelling of the leg. No chest pain, no palpitati on, no headache, no dizziness. Back pain is improving, but very slowly. The patient finally had a b owel movement. Daughter was sitting on the bedside. Length of time discussion done with the fernnada zimmer All questions answered. PHYSICAL EXAMINATION: VITAL SIGNS: Temperature 97.7, pulse 94, blood pressure 115/70, respiratory rate 18. HEAD: Normocephalic, atraumatic. EYES: PERRLA. Extraocular muscles intact. Conjunctivae are clear. Nose patent. Mucous membranes m oist. NECK: Supple. No carotid bruit, no JVD or thyromegaly. CHEST: Bilaterally symmetrical. HEART: S1, S2 positive. LUNGS: Clear to auscultation. ABDOMEN: Soft. Bowel sounds positive. No organomegaly. EXTREMITIES: No edema, no cyanosis. NEUROLOGIC: The patient is awake, alert and moving all 4 extremities. No focal deficits. MEDICATIONS: Colace, Dilaudid, lactulose, MiraLax, Pepcid, oxycodone, Tylenol, Zofran. LABORATORY DATA: We do not have labs today, but I reviewed old labs. ASSESSMENT AND PLAN: The patient is a 71-year-old lady with multiple medical problems, history of id iopathic thrombocytopenic purpura. Dr. Ni is on the case. Constipation, history of T10 thoracic vertebra compression fracture, status post kyphoplasty. Getting pain medication. Getting physical therapy. PLAN: Continue physical therapy. Gastrointestinal and deep vein thrombosis prophylaxis. Appreciate d Dr. Ni's input. We will follow up. Corazon Hernández MD cc: [id number] TT: 08/17/2016 10:37:14 Confirmation # [id number] Dictation # [id number] karla
[2016-08-17] MEDS: POLYETHYLENE GLYCOL 3350 17 GM/Dose PACKET PO SCH (10:46)
[2016-08-17] MEDS: Oxycodone/Acetaminophen 5/325 mg Tab PO PRN (11:39)
[2016-08-18] MEDS: Oxycodone/Acetaminophen 5/325 mg Tab PO PRN ×3 (00:41→20:11)
[2016-08-18] MEDS: Pantoprazole 40 mg EC Tab PO SCH (06:07)
--- NOTE | 2016-08-18 08:06 | PN ---
DATE: 08/17/2016 SUBJECTIVE: The patient is seen and examined on the bedside. Looks comfortable. Daughter was sitti ng on the bedside also. Back pain is getting better. No nausea, vomiting, or diarrhea. No hematuri a or hematochezia. No swelling of the legs. No chest pain, no palpitation. No headache, no dizzine ss. PHYSICAL EXAMINATION: VITAL SIGNS: Temperature 98.1, pulse 74, blood pressure 113/70, respiratory rate 20, oxygenation 95. HEENT: Head normocephalic, atraumatic. Eyes: PERRLA. Extraocular muscles are intact. Conjunctiva e are clear. Nose patent. Mucous membranes moist. NECK: Supple. No carotid bruit. No JVD or thyromegaly. CHEST: Bilaterally symmetrical. HEART: S1, S2 positive. LUNGS: Clear to auscultation. ABDOMEN: Soft. Bowel sounds present. No organomegaly. EXTREMITIES: No edema, no cyanosis. NEUROLOGIC: The patient is awake, alert, moving all 4 extremities. No focal deficit. MEDICATIONS: Colace, Dilaudid, lactulose, MiraLax, Pepcid, Percocet, Protonix, Tylenol, and Zofran. LABORATORY DATA: We do not have recent labs today, but I reviewed old labs. ASSESSMENT AND PLAN: The patient is a 71-year-old lady with history of idiopathic thrombocytopenic p urpura, getting treatment from Dr. Ni; has constipation, getting relieved with MiraLax and lactu lose; history of T10 thoracic vertebra compression fracture, status post kyphoplasty; degenerative elijah int disease, fatigue, deconditioned, getting physical therapy in TCU. GI and DVT prophylaxis. Repe at labs. Will follow up. Corazon Hernández MD cc: [id number] TT: 08/18/2016 08:05:45 Confirmation # [id number] Dictation # [id number] mn
[2016-08-18] MEDS: POLYETHYLENE GLYCOL 3350 17 GM/Dose PACKET PO SCH (10:03)
--- NOTE | 2016-08-18 16:46 | PN ---
DATE: 08/18/2016 The patient is a 71-year-old female sitting on the bed, getting physical therapy, daughter si tting on the bedside also. According to patient, she is having pain and cramping in the back. No na usea, vomiting, diarrhea. No headache, no dizziness. PHYSICAL EXAMINATION: VITAL SIGNS: Temperature 98.4, pulse 91, respiratory rate 18, blood pressure 120/84. HEENT: Head normocephalic, atraumatic. Eyes PERRLA. Extraocular muscles intact. Conjunctivae galindo r. Nose patent. Mucous membranes are moist. NECK: Supple. No carotid bruit, JVD or thyromegaly. CHEST: Bilaterally symmetrical. HEART: S1, S2 positive. LUNGS: Clear to auscultation. ABDOMEN: Soft. Bowel sounds positive. No organomegaly. EXTREMITIES: No edema, no cyanosis. NEUROLOGIC: The patient awake, alert, moving all 4 extremities. No focal deficit. MEDICATIONS: Docusate, hydromorphone, lactulose, MiraLax, Pepcid, oxycodone, Percocet, pantoprazole, famotidine. LABORATORY DATA: We do not have recent labs today, but reviewed old labs. ASSESSMENT AND PLAN: The patient is a 71-year-old lady with history of T10 compression fracture, sta tus post kyphoplasty by Dr. Walker De La Vega; history of idiopathic thrombocytopenic purpura. Dr. Ni is on the case. History of constipation getting resolved. Degenerative joint disease, according to patient's daughter and patient. The patient is getting cramping pains in the back and ____ consult with Dr. Walker De La Vega and we will put on some Flexeril. Gastrointestinal and deep venous thrombosis p rophylaxis. Repeat labs. We will follow up. Corazon Hernández MD cc: [id number] TT: 08/18/2016 16:45:42 Confirmation # [id number] Dictation # [id number] sn
--- NOTE | 2016-08-18 21:56 | PN ---
DATE: 08/18/2016 This the patient's hospital visit on TCU. For Dr. Ni. SUBJECTIVE: The patient is a 71-year-old female, seen lying awake in bed with her pain significantly improved; however, still not 100% without discomfort. With this, the patient is otherwise resting c omfortably, status post kyphoplasty as per Dr. Walker De La Vega with consideration for Promacta treatment versus endplate in the future for her thrombocytopenia. Her labs were not done recently, they will b e checked in the morning. PHYSICAL EXAMINATION: VITAL SIGNS: Temperature 98.6, pulse 83, respirations 18, blood pressure 111/62, pulse ox 96%. HEENT: Unremarkable. NECK: Supple. HEART: Regular rate. LUNGS: Clear. ABDOMEN: Soft, nontender. EXTREMITIES: No edema. SKIN: Warm, dry and clear. NEUROLOGIC: Awake and alert with discomfort reported to her left lower back in the mid lower back. LABORATORY DATA: The patient's labs were done on 08/15 which showed a platelet count of 39,000 that day. It will be repeated in the morning. ASSESSMENT: Deconditioning, thrombocytopenia, status post kyphoplasty for compression fracture at T1 0 with marrow edema, again ITP, thrombocytopenia, with intractable pain. PLAN: For this patient will be to continue present medical regimen. We will monitor clinically and with labs with a manual platelet count to be done in the morning with prognosis for this patient guar ded. She is to continue with reconditioning as per Dr. Hernández. Carlo Jaime MD cc: [id number] TT: 08/18/2016 21:56:28 Confirmation # [id number] Dictation # [id number] mn
[2016-08-19] MEDS: Pantoprazole 40 mg EC Tab PO SCH (05:53)
[2016-08-19 08:05] LABS: ADD MANUAL DIFF? NO
[2016-08-19 08:18] LABS: BASO # 0.06 K/mm3 (0.0-2.0); BASO % 1.2 % (0.0-3.0); EOS # 0.1 (0.0-0.7); EOS % 2.4 % (1.5-5.0); GRAN # 2.86 (1.4-6.5); GRAN % 58.2 % (50.0-68.0); LYMPH # 1.5 (1.2-3.4); LYMPH % 29.7 % (22.0-35.0); MEAN CORPUSCULAR HEMOGLOBIN 27.7 pg (25.0-35.0); MEAN CORPUSCULAR HGB CONC 32.2 g/dl (31.0-37.0); MEAN PLATELET VOLUME 11.3 fl (7.0-11.0); MONO # 0.4 (0.1-0.6); MONO % 8.5 % (1.0-6.0); WHITE BLOOD COUNT 4.9 10^3/ul (4.5-11.0)
[2016-08-19 08:26] LABS: PLATELET COUNT 27 10^3/uL (120.0-450.0)
[2016-08-19 08:27] LABS: ALB/GLOB RATIO 1.2 (1.1-1.8); ALKALINE PHOSPHATASE 119 U/L (38-133); ALT/SGPT 31 U/L (7-56); AST/SGOT 22 U/L (15-39); BILIRUBIN,TOTAL 0.4 mg/dL (0.2-1.3); BLOOD UREA NITROGEN 15 mg/dL (7-21); CALCIUM 9.4 mg/dL (8.4-10.5); CARBON DIOXIDE 30 mmol/L (21-33); CHLORIDE 102 mmol/L (98-107); GFR AFRICAN-AMERICAN > 60; GLUCOSE,RANDOM 93 mg/dL (70-110); POTASSIUM 4.3 mmol/L (3.6-5.0); SODIUM 138 mmol/L (132-148)
[2016-08-19] MEDS: POLYETHYLENE GLYCOL 3350 17 GM/Dose PACKET PO SCH (09:28)
[2016-08-19] MEDS: Oxycodone/Acetaminophen 5/325 mg Tab PO PRN (11:34)
--- NOTE | 2016-08-19 18:52 | PN ---
DATE: 08/19/[address] Ni. SUBJECTIVE: The patient is a 71-year-old female, seen lying awake in bed, family at the bedside with severe thrombocytopenia with no active bleeding. She is being treated for compression fracture at T 10 with kyphoplasty still with significant pain, otherwise participating in TCU protocols. She is se en with cytology technologist at the bedside. PHYSICAL EXAMINATION: VITAL SIGNS: Temperature 98.8, pulse 95, respirations 18, blood pressure 91/50, pulse ox 98%. HEENT: Unremarkable. NECK: Supple. HEART: Regular rate. LUNGS: Clear. ABDOMEN: Soft, nontender. EXTREMITIES: No edema. SKIN: Warm, dry. NEUROLOGIC: Awake and alert with left lower back discomfort noted. LABORATORY DATA: The patient's labs were done. White blood cell count of 4.9, hemoglobin 11.9, jeremiah tocrit of 37.0, platelet count of 27,000 with a manual 35,000. Her chem panel was within normal rang e. ASSESSMENT: Thrombocytopenia with no active bleeding, inspection to oral palatable also revealed no petechia. Deconditioning status post kyphoplasty for compression fracture at T10 with intractable pa in. PLAN: The patient is to continue present medical regimen as per Dr. Hernández with reconditioning and w ith analgesics for her pain as indicated. We will monitor clinically with consideration for treatmen t of her thrombocytopenia as per Dr. Ni's recommendation with Promacta should it be necessary. Carlo Jaime MD cc: [id number] TT: 08/19/2016 18:52:09 Confirmation # [id number] Dictation # [id number] jn
[2016-08-20] MEDS: Oxycodone/Acetaminophen 5/325 mg Tab PO PRN ×3 (04:19→21:36)
[2016-08-20] MEDS: Pantoprazole 40 mg EC Tab PO SCH (05:56)
--- NOTE | 2016-08-20 08:02 | PN ---
DATE: 08/19/2016 SUBJECTIVE: The patient seen and examined on the bedside. Looks comfortable. No nausea, vomiting, or diarrhea. No hematuria or hematochezia. No swelling of the legs. No chest pain, no palpitation. No headache, no dizziness. Back pain is getting better but still there. Getting physical therapy. PHYSICAL EXAMINATION: VITAL SIGNS: Temperature 98.8, pulse 95, respiratory rate 18, blood pressure 91 /50, pulse oxygenation 98% on room air. HEENT: Head normocephalic, atraumatic. Eyes: PERRLA. Extraocular muscles are intact. Conjunctivae are clear. Nose patent. Mucous membranes moist. NECK: Supple. No carotid bruit, JVD or thyromegaly. CHEST: Bilaterally symmetrical. HEART: S1, S2 positive. LUNGS: Clear to auscultation. ABDOMEN: Soft. Bowel sounds positive. No organomegaly. EXTREMITIES: No edema, no cyanosis. NEUROLOGIC: The patient is awake, alert, moving all 4 extremities. No focal deficit. LABORATORY DATA: White blood cells 4.9, hemoglobin 11.9, hematocrit 37.0, platelets 27,000. ASSESSMENT AND PLAN: The patient is a 71-year-old lady with idiopathic thrombocytopenic purpura, no active bleeding; history of T10 compression fracture with intractable pain, had kyphoplasty by Dr. Walker De La Vega; history of constipation, now moving bowel; history of intractable back pain, improving. The patient is getting physical therapy and I gave her Flexeril and pain medication. Dr. Ni is on the case for thrombocytopenia. GI and DVT prophylaxis. We will continue Colace for constipation, Dilaudid for pain. Flexeril is given like muscle relaxant; according to her, her back muscles were spasming. Marta zamarripa Will follow up. Corazon Hernández MD cc: [id number] TT: 08/20/2016 08:02:10 Confirmation # [id number] Dictation # [id number] josé miguel AZAR
[2016-08-20] MEDS: POLYETHYLENE GLYCOL 3350 17 GM/Dose PACKET PO SCH (10:04)
--- NOTE | 2016-08-20 14:04 | PN ---
DATE: 08/20/2016 This is patient's hospital visit on TCU. For Dr. Ni. SUBJECTIVE: The patient is a 71-year-old female, seen lying awake in bed, speaking Macedonian with a tr anslator available, being treated for compression fracture with kyphoplasty on T10, now with low plat elets being followed with no active bleeding described to questioning. She is otherwise reporting her pain is better today. PHYSICAL EXAMINATION: VITAL SIGNS: Temperature 97.1, pulse 91, respirations 18, blood pressure 100/64, pulse ox 99%. HEENT: Unremarkable with no petechiae noted to inspection of the oral palate. NECK: Supple. HEART: Regular rate. LUNGS: Clear. ABDOMEN: Soft, nontender. EXTREMITIES: No edema. SKIN: Warm, dry and clear. NEUROLOGIC: Awake, alert and oriented with the patient reporting her pain is significantly improved. LABORATORY DATA: The patient's labs were done yesterday with a manual platelet count of 35,000 with 27,000 machine automated result. Her labs will be repeated in the morning. Her chem metabolic panel was also completely normal yesterday. ASSESSMENT: Thrombocytopenia, status post intractable pain with decompressive laminectomy and analge sics as per Dr. Hernández with compression fracture at T10, deconditioning. PLAN: To continue present medical regimen with consideration for outpatient followup once she is dis charged, possibly tomorrow, to follow up with Dr. Ni in approximately 5 days' time with consider ation for Promacta versus Nplate versus IV gammaglobulin as indicated. At present, there is no activ e bleeding with the patient's labs to be checked tomorrow morning. Carlo Jaime MD cc: [id number] TT: 08/20/2016 14:03:55 Confirmation # [id number] Dictation # [id number] karla
[2016-08-21] MEDS: Pantoprazole 40 mg EC Tab PO SCH (05:50)
[2016-08-21 07:21] LABS: ADD MANUAL DIFF? NO
[2016-08-21 07:25] LABS: BASO # 0.07 K/mm3 (0.0-2.0); BASO % 1.4 % (0.0-3.0); EOS # 0.1 (0.0-0.7); EOS % 2.4 % (1.5-5.0); GRAN # 2.56 (1.4-6.5); GRAN % 51.2 % (50.0-68.0); LYMPH # 1.8 (1.2-3.4); LYMPH % 36.2 % (22.0-35.0); MEAN CELL VOLUME 86.2 fL (80.0-105.0); MEAN CORPUSCULAR HEMOGLOBIN 27.7 pg (25.0-35.0); MEAN CORPUSCULAR HGB CONC 32.1 g/dl (31.0-37.0); MEAN PLATELET VOLUME 10.9 fl (7.0-11.0); MONO # 0.4 (0.1-0.6); MONO % 8.8 % (1.0-6.0); PLATELET COUNT 37 10^3/uL (120.0-450.0); RED CELL DISTRIBUTION WIDTH 12.9 % (11.5-14.5)
[2016-08-21 07:40] LABS: ALB/GLOB RATIO 1.2 (1.1-1.8); ALKALINE PHOSPHATASE 126 U/L (38-133); ALT/SGPT 30 U/L (7-56); AST/SGOT 24 U/L (15-39); BILIRUBIN,TOTAL 0.3 mg/dL (0.2-1.3); BLOOD UREA NITROGEN 18 mg/dL (7-21); CALCIUM 9.2 mg/dL (8.4-10.5); CARBON DIOXIDE 32 mmol/L (21-33); CHLORIDE 98 mmol/L (98-107); GFR AFRICAN-AMERICAN > 60; GLUCOSE,RANDOM 97 mg/dL (70-110); POTASSIUM 4.2 mmol/L (3.6-5.0); SODIUM 137 mmol/L (132-148)
[2016-08-21] MEDS: POLYETHYLENE GLYCOL 3350 17 GM/Dose PACKET PO SCH (10:01)
[2016-08-21] MEDS: HYDROmorphone 0.5 mg/0.5 ml ISec IVP PRN ×2 (13:34→23:43)
--- NOTE | 2016-08-21 18:05 | PN ---
DATE: 08/21/2016 This is the patient's hospital visit on TCU: For Dr. Ni. SUBJECTIVE: The patient is a 71-year-old female now having reconditioning on TCU as per Dr. Betty lanza the patient admitted for severe pain with a compression fracture on T10 now status post kyphoplas ty with Dr. Walker De La Vega with the patient known to have ITP with significant thrombocytopenia; however , there is no active bleeding and the patient reports that after aggressive physiotherapy yesterday, her pain has recurred with the patient's discharge postponed as per Dr. Hernández. She appears to be in moderate distress with her analgesics given with good effect. OBJECTIVE/PHYSICAL EXAMINATION: VITAL SIGNS: Temperature 98.1, pulse 108, respirations 18, blood pressure 113/72, pulse ox 94%. HEENT: Unremarkable. NECK: Supple. HEART: Tachy rate, regular rhythm. LUNGS: Clear. ABDOMEN: Soft. EXTREMITIES: Minimal tenderness to gentle palpation to mid lower back, otherwise negative. SKIN: Warm, dry. NEUROLOGIC: Awake and alert. LABORATORY DATA: The patient's labs were done. White blood cell count of 5.0, hemoglobin 12.2, jeremiah tocrit 38.0, platelet count of 37,000 with a manual of 45,000. Chem panel is completely within ida l range. ASSESSMENT: Thrombocytopenia with no active bleeding, status post kyphoplasty for intractable pain o f a fracture of T10. PLAN: For this patient is to continue present medical regimen with considerations for Promacta versu s Nplate as per Dr. Ni's recommendations if she is discharged home. We will monitor clinically as indicated with followup with Dr. Ni next week in the office should she be discharged. Carlo Jaime MD cc: [id number] TT: 08/21/2016 18:04:54 Confirmation # [id number] Dictation # [id number] raji
[2016-08-22] MEDS: Pantoprazole 40 mg EC Tab PO SCH (05:42)
--- NOTE | 2016-08-22 06:31 | PN ---
DATE: 08/21/2016 SUBJECTIVE: The patient seen and examined on the bedside, looks comfortable. No nausea, vomiting, diarrhea. No hematuria or hematochezia. No swelling of the leg. No chest pain, no palpitation. No headache, no dizziness. Still complaining about back pain. as per patient, after yesterday's physical therapy, she started pain more. PHYSICAL EXAMINATION: VITAL SIGNS: Temperature 98.1, pulse 108, respiratory rate 18, blood pressure 113/72, pulse oximeter 94%. HEENT: Normocephalic, atraumatic. Eyes PERRLA. Extraocular movements intact. Conjunctivae clear. Nose patent. Mucous membranes moist. NECK: Supple. No carotid bruit, JVD or thyromegaly. CHEST: Bilaterally symmetrical. HEART: S1, S2 positive. LUNGS: Clear to auscultation. ABDOMEN: Soft. Bowel sounds positive. No organomegaly. EXTREMITIES: No edema, no cyanosis. NEUROLOGIC: The patient awake, alert, moving all 4 extremities. No focal deficit. LABORATORY DATA: White blood cell is 5.0, hemoglobin 12.2, hematocrit 38. Platelets 37,000 and with manual 45,000. Sodium 137, potassium 4.2, BUN 18, creatinine 0.7, glucose 97. ASSESSMENT AND PLAN: The patient's history of anemia improved, has thrombocytopenia, idiopathic thrombocytopenic purpura. Platelets are up and down, flotation tender helper is on the case. The patient has compression fracture on T10 and now status post kyphoplasty by Dr. Walker De La Vega with the patient known to have idiopathic thrombocytopenic purpura with significant thrombocytopenia. Got transfusion of packed platelets. The patient is getting physical therapy but maybe she got too much physical therapy yesterday. Today, she looks like more fatigued and tired. Gastrointestinal and deep venous thrombosis prophylaxis. History of constipation, getting Colace, for pain getting Dilaudid. I gave a muscle relaxant. Pepcid is for gastrointestinal prophylaxis. We will discontinue Zofran because patient is not more nauseous. We will follow up. Corazon Hernández MD cc: [id number] TT: 08/22/2016 06:30:27 Confirmation # [id number] Dictation # [id number]
[2016-08-22] MEDS: HYDROmorphone 0.5 mg/0.5 ml ISec IVP PRN ×3 (09:49→21:52)
[2016-08-22] MEDS: POLYETHYLENE GLYCOL 3350 17 GM/Dose PACKET PO SCH (09:50)
--- NOTE | 2016-08-22 15:08 | PN ---
DATE: 08/22/2016 This is the patient's hospital visit on the TCU floor. For Dr. Ni. SUBJECTIVE: The patient is a 71-year-old female, sitting up in bed, reporting her pain is modestly i mproved today after reactivation of her pain yesterday. She has a compression fracture, status post kyphoplasty with Dr. Walker De La Vega with known ITP. There is no active bleeding and she is otherwise po ssibly going to be discharged later today or tomorrow. She is otherwise without complaint. Her foll owup will be with Dr. Ni during this week for consideration of treatment with Promacta versus Entry Rep late as indicated. OBJECTIVE AND PHYSICAL EXAMINATION: VITAL SIGNS: Temperature 98.5, pulse 81, respirations 18, blood pressure 107/78, pulse ox 97%. HEENT: Unremarkable. NECK: Supple. HEART: Tachy rate, regular rhythm. LUNGS: Clear. ABDOMEN: Soft. EXTREMITIES: Minimal decreased range of motion to the mid low back. SKIN: Warm and dry. NEUROLOGIC: Awake and alert. The patient's labs were not done. She was to be discharged. We will repeat them in the morning. ASSESSMENT: For this patient is that of intractable pain of compression fracture, status post kyphop lasty with thrombocytopenia with no active bleeding, deconditioning. PLAN: For this patient is to continue with present medical regimen as per Dr. Hernández. We will also check her labs with patient to be followed by Dr. Ni in the office this week for consideration o f treatment of her thrombocytopenic indices. Carlo Jaime MD cc: [id number] TT: 08/22/2016 15:07:41 Confirmation # [id number] Dictation # [id number] en
[2016-08-23] MEDS: Pantoprazole 40 mg EC Tab PO SCH (05:29)
[2016-08-23 06:29] LABS: ADD MANUAL DIFF? NO
[2016-08-23 06:35] LABS: BASO # 0.04 K/mm3 (0.0-2.0); BASO % 0.8 % (0.0-3.0); EOS # 0.1 (0.0-0.7); EOS % 2.5 % (1.5-5.0); GRAN # 2.66 (1.4-6.5); GRAN % 51.2 % (50.0-68.0); HEMATOCRIT 35.6 % (36.0-48.0); LYMPH # 1.8 (1.2-3.4); LYMPH % 35.1 % (22.0-35.0); MEAN CELL VOLUME 85.8 fL (80.0-105.0); MEAN CORPUSCULAR HEMOGLOBIN 27.5 pg (25.0-35.0); MEAN PLATELET VOLUME 10.2 fl (7.0-11.0); MONO # 0.5 (0.1-0.6); MONO % 10.4 % (1.0-6.0); RED CELL DISTRIBUTION WIDTH 12.8 % (11.5-14.5); WHITE BLOOD COUNT 5.2 10^3/ul (4.5-11.0)
[2016-08-23 06:48] LABS: PLATELET COUNT 29 10^3/uL (120.0-450.0)
[2016-08-23 07:24] LABS: BLOOD UREA NITROGEN 19 mg/dL (7-21); GFR AFRICAN-AMERICAN > 60; GLUCOSE,RANDOM 100 mg/dL (70-110); POTASSIUM 3.9 mmol/L (3.6-5.0); SODIUM 137 mmol/L (132-148)
[2016-08-23 07:25] LABS: ALB/GLOB RATIO 1.1 (1.1-1.8); ALKALINE PHOSPHATASE 119 U/L (38-133); ALT/SGPT 28 U/L (7-56); AST/SGOT 21 U/L (15-39); BILIRUBIN,TOTAL 0.3 mg/dL (0.2-1.3); CARBON DIOXIDE 29 mmol/L (21-33); CHLORIDE 101 mmol/L (98-107); TOTAL PROTEIN 6.4 g/dL (5.8-8.3)
--- NOTE | 2016-08-23 08:09 | PN ---
DATE: 08/22/2016 The patient is a 71-year-old female. The patient is seen and examined on the bedside, still complain ing about back pain. I increased her Flexeril from once a day to 3 times a day. No nausea, vomiting , diarrhea. No hematuria, no hematochezia. No swelling of the legs. No chest pain, no palpitation. No headache, no dizziness. PHYSICAL EXAMINATION: VITAL SIGNS: Temperature 98.1, pulse 94, blood pressure 105/62, respiratory rate 18. HEENT: Head normocephalic, atraumatic. Eyes PERRLA. Extraocular muscles intact. Conjunctivae galindo r. Nose patent. Mucous membranes moist. NECK: Supple. No carotid bruit, no JVD, no thyromegaly. CHEST: Bilaterally symmetrical. HEART: S1, S2 positive. LUNGS: Clear to auscultation. ABDOMEN: Soft. Bowel sounds positive. No organomegaly. EXTREMITIES: No edema, no cyanosis. NEUROLOGIC: The patient is awake, alert, moving all 4 extremities. No focal deficit. MEDICATIONS: Colace, Dilaudid, lactulose, Flexeril, it was once a day, I made 3 times a day, MiraLax , Pepcid, Tylenol. LABORATORIES: We do not have recent labs today, but I reviewed old labs. ASSESSMENT AND PLAN: The patient is a 71-year-old lady, came with intractable back pain of compressi on fracture of T10, status post kyphoplasty by Dr. Walker De La Vega, history of thrombocytopenia with no a ctive bleeding, got platelets transfusion, deconditioning, pain management. The patient's pain was g etting better, but after aggressive physical therapy, pain came back. Now, I gave Flexeril 3 times a day today. We will observe her 24 hours and tomorrow we will make discharge planning. Gastrointest inal and deep venous thrombosis prophylaxis. Repeat labs. Will follow up. Corazon Hernández MD cc: [id number] TT: 08/23/2016 08:08:17 Confirmation # [id number] Dictation # [id number] en
--- NOTE | 2016-08-23 08:37 | PN ---
DATE: 08/20/2016 SUBJECTIVE: The patient was seen and examined on the bedside. Getting physical therapy. Pain is getting under control. No nausea, vomiting, or diarrhea. No hematuria or hematochezia. No swelling of the leg. No chest pain. No headache, no dizziness. No fever, no chills. PHYSICAL EXAMINATION: VITAL SIGNS: Temperature 97.1, pulse 80 , respiratory rate 18, blood pressure 100/ 70 , pulse oximetry 99%. HEENT: Head normocephalic and atraumatic. Eyes: PERRLA. Extraocular muscles intact. Conjunctivae clear. Nose patent. Moist mucous membranes. NECK: Supple. No carotid bruit, JVD or thyromegaly. CHEST: Bilaterally symmetrical. HEART: S1, S2 positive. LUNGS: Clear to auscultation. . ABDOMEN: Soft. Bowel sounds present. No organomegaly. EXTREMITIES: No edema, no cyanosis. NEUROLOGIC: The patient is awake, alert, oriented x 3. cn was intact. LABORATORY DATA: White blood cells 4.9, hemoglobin 11.9, hematocrit 37.0, platelets 27. Sodium 138, potassium 4.3, BUN 15, creatinine 0.7. ASSESSMENT AND PLAN: The patient is a 71-year-old lady with anemia, thrombocytopenia, came with thoracic vertebral compression fracture, getting physical therapy, kyphoplasty, decompressive laminectomy. Seen by oncologist. GI and DVT prophylaxis. Will repeat labs. Will followup. Corazon Hernández MD cc: [id number] TT: 08/20/2016 22:01:06 Confirmation # [id number] Dictation # [id number] raji AZAR
[2016-08-23] MEDS: HYDROmorphone 0.5 mg/0.5 ml ISec IVP PRN (10:17)
[2016-08-23] MEDS: POLYETHYLENE GLYCOL 3350 17 GM/Dose PACKET PO SCH (10:19)
[2016-08-23 11:34] VITALS: BP 112/75; PULSE 107; RESP 18; TEMP 97.3; O2SAT 99
== END 2016-08-23 15:25 | disposition home or self-care (01) | DRG 560 ==
LOC: TRCU 14:49
PROVIDERS: ADMIT Internal Medicine; ATTEND Internal Medicine
PROC: F07Z9ZZ Gait Training/Functional Ambulation Treatment (ICD-10-PCS; principal; 2016-08-14)
PROC: F08Z4ZZ Home Management Treatment (ICD-10-PCS; 2016-08-14)
DX: M48.54XD Collapsed vertebra, not elsewhere classified, thoracic region, subsequent encounter for fracture with routine healing (principal); Z98.890 Other specified postprocedural states; D69.3 Immune thrombocytopenic purpura; D64.9 Anemia, unspecified; K59.00 Constipation, unspecified; R73.9 Hyperglycemia, unspecified; R53.83 Other fatigue

== ENCOUNTER 2016-09-07 10:26 | Inpatient (IN) | payer MEDICARE, OTHER ==
[2016-09-07] MEDS ORDERED: Morphine 4 mg/ml ISec IVP STA (11:15)
[2016-09-07] MEDS ORDERED: Lidocaine 5% Patch TD STA (11:17)
--- NOTE | 2016-09-07 11:38 | ED PDOC ---
Arrival/HPI - General Chief Complaint: Back Pain Time Seen by Provider: 09/07/16 10:58 Historian: Patient - History of Present Illness Narrative History of Present Illness (Text): 09/07/16 11:33 The patient is a 71yo female, presents to the ED for evaluation of excruciating back pain, in her thoracic and lumbar area, present since the past three days. Reports her back pain is worse with movement and is achy and sharp at time. Pt reports she has had back pain for the past 6 months after having a bone biopsy done but states the pain worsened, prompting her visit to the facility. Pt states she visited her PMD, Dr. Hernández who provided her with a prescription for Percocets and Tramadol, which she has been taking with no relief. States she was given a prescription by Dr. Hernández for an ED visit for evaluation of her back pain. She denies any associated fever, numbness, weakness or incontinence. Pt offers no additional medical complaints. Of note, patient had a khyphoplasty, performed by Dr. De La Vega on 08/12/16 PCP: Dr. Hernández Time/Duration: < week (3 days) Quality: Aching Past Medical History - Provider Review Nursing Documentation Reviewed: Yes - Travel History Have you recently traveled outside [place] w/in the past 3 mons?: No - Infectious Disease Hx of Infectious Diseases: None - Tetanus Immunization Tetanus Immunization: Unknown - Reproductive Menopause: Yes - Cardiac Hx Pacemaker: No - Neurological Hx Paralysis: No - Renal Hx Kidney Stones: Yes - Hematological/Oncological Hx Blood Transfusions: No - Integumentary Other/Comment: small 0.2cm round dry to l knee - Musculoskeletal/Rheumatological Hx Back Pain: Yes (bone biopsy done 6mo ago) Hx Falls: No Hx Fractures: Yes - Genitourinary/Gynecological Hx Reproductive Disorders: No - Psychiatric Hx Emotional Abuse: No Hx Physical Abuse: No Hx Substance Use: No - Surgical History Other/Comment: 07/20/11 cysto left ureteroscopy, left retrograde pylegram - Anesthesia Hx Anesthesia Reactions: No - Suicidal Assessment Feels Threatened In Home Enviroment: No Family/Social History - Physician Review Nursing Documentation Reviewed: Yes Family/Social History: Unknown Family HX Smoking Status: Never Smoked Hx Alcohol Use: No Hx Substance Use: No Allergies/Home Meds Allergies/Adverse Reactions: Allergies No Known Allergies Allergy (Verified 09/07/16 10:53) Home Medications: Home Meds Medication Instructions Recorded Confirmed oxyCODONE/Acetaminophen [Percocet 0 tab PO PRN PRN 09/07/16 09/07/16 5/325 mg Tab] traMADol [Ultram] 50 mg PO PRN PRN 09/07/16 09/07/16 Review of Systems - Physician Review All systems were reviewed & negative as marked: Yes - Review of Systems Constitutional: absent: Fevers Genitourinary Female: absent: Other (incontinence) Musculoskeletal: Back Pain. absent: Other (numbness, weakness) Physical Exam Vital Signs Reviewed: Yes Vital Signs Temp Pulse Resp BP Pulse Ox 09/07/16 14:51 97.6 F 80 16 155/84 H 100 09/07/16 11:52 98.9 F 85 17 137/71 95 09/07/16 10:49 99.3 F 96 H 20 119/76 99 Appearance: Positive for: Well-Appearing, Non-Toxic, Comfortable Mental Status: Positive for: Alert and Oriented X 3 - Systems Exam Head: Present: Atraumatic, Normocephalic Pupils: Present: PERRL Extroacular Muscles: Present: EOMI Conjunctiva: Present: Normal Mouth: Present: Moist Mucous Membranes Neck: Present: Normal Range of Motion Respiratory/Chest: Present: Clear to Auscultation, Good Air Exchange. No: Respiratory Distress, Accessory Muscle Use Cardiovascular: Present: Regular Rate and Rhythm, Normal S1, S2. No: Murmurs Abdomen: Present: Normal Bowel Sounds. No: Tenderness, Distention, Peritoneal Signs Back: Present: Paraspinal Tenderness (lumbar), Other (Tenderness to lower thoracic region). No: Pain with Leg Raise Upper Extremity: Present: Normal Inspection. No: Cyanosis, Edema Lower Extremity: Present: Normal Inspection, Other (normal strength) Neurological: Present: GCS=15, CN II-XII Intact, Speech Normal Skin: Present: Warm, Dry, Normal Color. No: Rashes Psychiatric: Present: Alert, Oriented x 3 Medical Decision Making ED Course and Treatment: 09/07/16 11:43 Impression: Intractible back pain Plan: -- BMP -- CBC -- MRI Spinal Canal Lumbar w/o contrast -- MRI Spinal canal thoracic w/o contrast -- Lidocaine 5% 1ea TD -- Reassess and disposition Progress Notes: 09/07/16 11:16 Pt to be placed under ED observation. - RAD Interpretation Radiology Orders: 09/07/16 11:14 SPINAL CANAL LUMBAR W/O CONT [MRI] Stat SPINAL CANAL THORACIC W/O CONT [MRI] Stat - Medication Orders Current Medication Orders: Discontinued Medications Dexamethasone (Decadron Inj) 8 mg IVP STAT STA Stop: 09/07/16 14:52 Last Admin: 09/07/16 15:12 Dose: 8 mg Gabapentin (Neurontin) 300 mg PO STAT STA PRN Reason: Protocol Stop: 09/07/16 14:52 Last Admin: 09/07/16 15:12 Dose: 300 mg Ketorolac Tromethamine (Toradol) 30 mg IVP STAT STA Stop: 09/07/16 11:18 Last Admin: 09/07/16 11:34 Dose: 30 mg Lidocaine (Lidoderm) 1 ea TD STAT STA Stop: 09/07/16 11:18 Last Admin: 09/07/16 11:34 Dose: 1 ea ED OBSERVATION Date of observation admission: 09/07/16 Time of observation admission: 11:16 - Observation admission statement Patient is being placed in observation because:: Patient w/ intractible back pain, awaiting MRI and ED workup. - Progress Note Progress Note: 09/07/16 13:21 Pt resting in room, no distress. 09/07/16 13:30 Patient comfortable. Pain almost subsided. No numbness or weakness. 09/07/16 16:[address] Hernández who was informed of the MRI results. Dr. Hernández advised to place consult with Dr. Walker De La Vega, interventional radiologist. Pt placed in observation under Dr. Hernández due to intractable back pain. 09/07/16 16:[address] De La Vega who was informed of MRI results. Dr. De La Vega will review the MRI himself and determine if pt needs a new kyphoplasty. - Scribe Statement The provider has reviewed the documentation as recorded by the Keiry Hays Provider Scribe Attestation: All medical record entries made by the Scribe were at my direction and personally dictated by me. I have reviewed the chart and agree that the record accurately reflects my personal performance of the history, physical exam, medical decision making, and the department course for this patient. I have also personally directed, reviewed, and agree with the discharge instructions and disposition. Disposition/Present on Arrival - Present on Arrival Any Indicators Present on Arrival: No History of DVT/PE: No History of Uncontrolled Diabetes: No Urinary Catheter: No History of Decub. Ulcer: No History Surgical Site Infection Following: None - Disposition Have Diagnosis and Disposition been Completed?: Yes Diagnosis: Back pain, Compression fracture Disposition: HOSPITALIZED Disposition Time: 16:21 Patient Plan: Observation Condition: FAIR
[2016-09-07 11:48] LABS: BASO # 0.04 K/mm3 (0.0-2.0); BASO % 0.5 % (0.0-3.0); EOS % 0.2 % (1.5-5.0); GRAN # 5.66 (1.4-6.5); GRAN % 66.2 % (50.0-68.0); HEMOGLOBIN 12.9 gm/dL (12.0-16.0); LYMPH # 2.2 (1.2-3.4); MEAN CELL VOLUME 85.8 fL (80.0-105.0); MEAN CORPUSCULAR HEMOGLOBIN 28.1 pg (25.0-35.0); MEAN CORPUSCULAR HGB CONC 32.7 g/dl (31.0-37.0); MEAN PLATELET VOLUME 10.7 fl (7.0-11.0); MONO # 0.6 (0.1-0.6); MONO % 7.1 % (1.0-6.0); RBC 4.59 10^6/uL (3.5-6.1); RED CELL DISTRIBUTION WIDTH 13.5 % (11.5-14.5); WHITE BLOOD COUNT 8.6 10^3/ul (4.5-11.0)
[2016-09-07 11:56] LABS: BLOOD UREA NITROGEN 16 mg/dL (7-21); CALCIUM 9.9 mg/dL (8.4-10.5); GFR AFRICAN-AMERICAN > 60; GFR NON-AFRICAN AMERICAN > 60
[2016-09-07 12:03] LABS: PLATELET COUNT 16 10^3/uL (120.0-450.0)
[2016-09-07] MEDS ORDERED: Dexamethasone 4 mg/1 ml IVP STA (14:51)
--- NOTE | 2016-09-07 15:46 | MRI ---
PROCEDURE: MR LUMBAR SPINE WITHOUT CONTRAST HISTORY: intractable back pain with recent kyphoplasty COMPARISON: MRI 07/31/2016 TECHNIQUE: Multiecho multiplanar sequences were performed through the lumbar spine without the use of intravenous contrast. FINDINGS: Normal lumbar lordosis. There are no acute compression fractures seen. Chronic compression deformities are seen in the superior end plate of L5 and both endplates of L4. Minimal compression deformities are seen in the superior end plate of T11, T12 and L1 No marrow edema to suggest acute fracture Conus medullaris unremarkable at the level of L1 Paraspinal soft tissues are unremarkable. OTHER FINDINGS: Mild degenerative changes are seen a multiple levels. There is no evidence of spinal stenosis or disc herniation IMPRESSION: No acute compression fractures
--- NOTE | 2016-09-07 15:57 | MRI ---
PROCEDURE: MR THORACIC SPINE WITHOUT CONTRAST HISTORY: intractable back pain with recent kyphoplasty COMPARISON: MRI of the thoracic spine dated 07/31/2016 TECHNIQUE: Multiecho multiplanar sequences were performed through the thoracic spine without the use of intravenous contrast. FINDINGS: ALIGNMENT: Normal thoracic spinal alignment. Normal thoracic kyphosis. VERTEBRA: The previous study showed an acute compression fracture of T10 which was treated with a kyphoplasty. There is now all marrow edema in the inferior half of T9 consistent with a recent compression fracture. There is minimal deformity of the endplate. There is a faint amount of marrow edema in the T8 vertebral body without a compression deformity MARROW: As above PARASPINAL SOFT TISSUES: Unremarkable. CORD: Unremarkable thoracic cord. No volume loss, signal abnormality or syrinx. DISCS: No disc herniation, spinal canal stenosis, or neuroforaminal narrowing. OTHER FINDINGS: None. IMPRESSION: New minimal compression fracture inferior endplate of T9 adjacent to recent kyphoplasty. Minimal marrow edema within the T8 vertebral body with no compression deformity
[2016-09-07] MEDS ORDERED: Oxycodone/Acetaminophen 5/325 mg Tab PO PRN (16:17)
[2016-09-07 19:08] VITALS: BMI 19.5
[2016-09-07] MEDS ORDERED: Immune Globulin 100 MG/ML 30 GM in Premixed IV 1 EA IV SCH ×2 (20:13→20:27)
[2016-09-07] MEDS: Immune Globulin 50 MG/ML 600 ML IV SCH (22:22)
--- NOTE | 2016-09-07 22:36 | CP.PCM.HP ---
History of Present Illness - History of Present Illness History of Present Illness: The patient is a 71yo female, presents to the ED for evaluation of excruciating back pain, in her thoracic and lumbar area, present since the past three days. Reports her back pain is worse with movement and is achy and sharp at time. Pt reports she has had back pain for the past 6 months after having a bone biopsy done but states the pain worsened, prompting her visit to the facility. Pt states she visited her PMD, Dr. Hernández who provided her with a prescription for Percocets and Tramadol, which she has been taking with no relief. States she was given a prescription by Dr. Hernández for an ED visit for evaluation of her back pain. She denies any associated fever, numbness, weakness or incontinence. Pt offers no additional medical complaints. her ls xrays was done as out pt showed compression fracture ot sherry Dyer/ba with dr sebastián barnett , pt need procedure , but platelets are low , so need platelets transfusion , hematology is on the case Present on Admission - Present on Admission Any Indicators Present on Admission: No Review of Systems - Constitutional Constitutional: As Per HPI - EENT Eyes: As Per HPI Ears: As Per HPI Nose/Mouth/Throat: As Per HPI - Breasts Breasts: As Per HPI - Cardiovascular Cardiovascular: As Per HPI - Respiratory Respiratory: As Per HPI - Gastrointestinal Gastrointestinal: As Per HPI - Genitourinary Genitourinary: As Per HPI - Integumentary Integumentary: As Per HPI - Neurological Neurological: As Per HPI - Psychiatric Psychiatric: As Per HPI - Endocrine Endocrine: As Per HPI - Hematologic/Lymphatic Hematologic: As Per HPI Additional comments: back interctable pain Past Patient History - Infectious Disease Hx of Infectious Diseases: None - Tetanus Immunizations Tetanus Immunization: Unknown - Past Social History Smoking Status: Never Smoked - CARDIAC Hx Pacemaker: No - NEUROLOGICAL Hx Paralysis: No - RENAL Hx Kidney Stones: Yes - HEMATOLOGICAL/ONCOLOGICAL Hx Blood Disorders: Yes ("low platelets" as per pt) - INTEGUMENTARY Other/Comment: small 0.2cm round dry to l knee - MUSCULOSKELETAL/RHEUMATOLOGICAL Hx Back Pain: Yes (bone biopsy done 6mo ago) Hx Falls: No Hx Fractures: Yes Other/Comment: surgery for fractured vertebrae July 2016 - GENITOURINARY/GYNECOLOGICAL Hx Reproductive Disorders: No - PSYCHIATRIC Hx Emotional Abuse: No Hx Physical Abuse: No Hx Substance Use: No - SURGICAL HISTORY Other/Comment: 07/20/11 cysto left ureteroscopy, left retrograde pylegram - ANESTHESIA Hx Anesthesia Reactions: No Meds Allergies/Adverse Reactions: Allergies Allergy/AdvReac Type Severity Reaction Status Date / Time No Known Allergies Allergy Verified 09/07/16 10:53 Physical Exam - Constitutional Appears: Well - Head Exam Head Exam: ATRAUMATIC, NORMAL INSPECTION, NORMOCEPHALIC - Eye Exam Eye Exam: EOMI, Normal appearance, PERRL Pupil Exam: NORMAL ACCOMODATION, PERRL - ENT Exam ENT Exam: Mucous Membranes Moist, Normal Exam - Neck Exam Neck exam: Positive for: Normal Inspection - Respiratory Exam Respiratory Exam: Clear to Auscultation Bilateral, NORMAL BREATHING PATTERN - Cardiovascular Exam Cardiovascular Exam: REGULAR RHYTHM - GI/Abdominal Exam GI & Abdominal Exam: Normal Bowel Sounds, Soft. absent: Tenderness - Rectal Exam Rectal Exam: NORMAL INSPECTION - Exam Exam: Circumcision, NORMAL INSPECTION External exam: NORMAL EXTERNAL EXAM Speculum exam: NORMAL SPECULUM EXAM Bimanual exam: NORMAL BIMANUAL EXAM - Extremities Exam Extremities exam: Positive for: normal inspection - Back Exam Back exam: muscle spasm, NORMAL INSPECTION, paraspinal tenderness, vertebral tenderness - Neurological Exam Neurological exam: Alert, CN II-XII Intact, Normal Gait, Oriented x3, Reflexes Normal - Psychiatric Exam Psychiatric exam: Normal Affect, Normal Mood - Skin Skin Exam: Dry, Intact, Normal Color, Warm Results - Vital Signs Recent Vital Signs: Last Vital Signs Temp 98 F 09/07/16 18:27 Pulse 78 09/07/16 18:27 Resp 20 09/07/16 18:27 BP 125/81 09/07/16 18:27 Pulse Ox 98 09/07/16 17:52 - Labs Result Diagrams: 09/07/16 11:43 09/07/16 11:43 Labs: Laboratory Results - last 24 hr 09/07/16 09/07/16 09/07/16 11:30 11:43 11:43 WBC 8.6 D RBC 4.59 Hgb 12.9 Hct 39.4 MCV 85.8 MCH 28.1 MCHC 32.7 RDW 13.5 Plt Count 16 L* Manual Plt Count 20 L* MPV 10.7 Gran % 66.2 Lymph % (Auto) 26.0 [place] % (Auto) 7.1 H Eos % (Auto) 0.2 L Baso % (Auto) 0.5 Gran # 5.66 Lymph # 2.2 [place] # 0.6 Eos # 0.0 Baso # 0.04 Sodium 137 Potassium 4.3 Chloride 100 Carbon Dioxide 28 Anion Gap 13 BUN 16 Creatinine 0.6 Est GFR ( Amer) > 60 Est GFR (Non-Af Amer) > 60 Random Glucose 99 Calcium 9.9 Assessment & Plan (1) Thrombocytopenia Status: Acute (2) Status post kyphoplasty Status: Acute (3) Acute constipation Status: Acute - Assessment and Plan (Free Text) Assessment: The patient is a 71yo female, presents to the ED for evaluation of excruciating back pain, in her thoracic and lumbar area, present since the past three days. Reports her back pain is worse with movement and is achy and sharp at time. Pt reports she has had back pain for the past 6 months after having a bone biopsy done but states the pain worsened, prompting her visit to the facility. Pt states she visited her PMD, Dr. Hernández who provided her with a prescription for Percocets and Tramadol, which she has been taking with no relief. States she was given a prescription by Dr. Hernández for an ED visit for evaluation of her back pain. She denies any associated fever, numbness, weakness or incontinence. Pt offers no additional medical complaints., dr sebastián barnett knows the case , and she need another kyphoplast .
[2016-09-08 07:06] LABS: BLOOD UREA NITROGEN 16 mg/dL (7-21); CALCIUM 9.3 mg/dL (8.4-10.5); GFR AFRICAN-AMERICAN > 60; GFR NON-AFRICAN AMERICAN > 60; HDL CHOLESTEROL 58 mg/dL (29-60)
[2016-09-08 07:09] LABS: % IRON SATURATION 44 % (20-55); GRAN # 7.89 (1.4-6.5); GRAN % 90.5 % (50.0-68.0); HEMOGLOBIN 11.8 gm/dL (12.0-16.0); IRON 111 ug/dL (45-180); LYMPH # 0.6 (1.2-3.4); LYMPH % 6.9 % (22.0-35.0); MEAN CELL VOLUME 84.6 fL (80.0-105.0); MEAN CORPUSCULAR HEMOGLOBIN 27.6 pg (25.0-35.0); MEAN CORPUSCULAR HGB CONC 32.6 g/dl (31.0-37.0); MEAN PLATELET VOLUME 10.9 fl (7.0-11.0); MONO # 0.2 (0.1-0.6); MONO % 2.6 % (1.0-6.0); PLATELET COUNT 32 10^3/uL (120.0-450.0); RBC 4.28 10^6/uL (3.5-6.1); RED CELL DISTRIBUTION WIDTH 13.3 % (11.5-14.5); TOTAL IRON BINDING CAPACITY 254 ug/dL (265-497); WHITE BLOOD COUNT 8.7 10^3/ul (4.5-11.0)
[2016-09-08 07:16] LABS: LDL CHOLESTEROL 120 mg/dL (0-129)
[2016-09-08 09:04] LABS: URINE APPEARANCE CLEAR (CLEAR); URINE BILIRUBIN NEGATIVE (NEGATIVE); URINE BLOOD MODERATE (NEGATIVE); URINE COLOR YELLOW (YELLOW); URINE GLUCOSE (UA) >=1000 mg/dL (NEGATIVE); URINE LEUKOCYTE ESTERASE NEGATIVE Leu/uL (NEGATIVE); URINE NITRATE NEGATIVE (NEGATIVE); URINE PROTEIN NEGATIVE mg/dL (<30 mg/dL); URINE UROBILINOGEN 0.2 E.U./dL (<1 E.U./dL)
[2016-09-08 09:16] LABS: URINE BACTERIA FEW (NEG); URINE EPITHELIAL CELLS 0 - 2 /hpf (0-5); URINE WBC 0 - 2 /hpf (0-6)
[2016-09-08 12:37] LABS: FOLATE > 20.0 ng/mL
--- NOTE | 2016-09-08 13:55 | CP.PCM.CON ---
<Tammie Damon - Last Filed: 09/09/16 14:12> History of Present Illness - History of Present Illness History of Present Illness: PGY-[address] Ni Hematology consult: thrombocytopenia Senior Medical Director: pt's daughter 71 F with Hx idiopathic thrombocytopenia purpura (Dx 2016, confirmed via bone Bx ), recent khyphoplasty T10 due to compression fracture, came to ED for excruciating back pain, thoracic and lumbar area. 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 Pain was 10/10, achy and sharp at times b/l mid-back, no radiation to front, or down LE. She had occasional back pain after having a bone biopsy done but the pain now has worsened. Pt's PMD, Dr. Hernández, provided her with a prescription for Percocets and Tramadol, but pt states that the pain meds were not able to provide relief. PMD asked her to go to the ED for intractable back pain s/p recent kyphoplasty. No Dexa Scan was done recently. ROS - Denies trauma, fever, numbness, weakness, saddle paresthesia, or B/B incontinence. In the ED, VSS. Plt 20. Thoracic spine has new minimal compression fracture inferior endplate of T9 adjacent to recent kyphoplasty. Minimal marrow edema within T8 vertebral body with no comrpession deformity. lumbar spine w/o contrast has r/o acute compression fractures. PMH ITP (documented in bone marrow biopsy 2016), treated initially with steroids taper. 1 month ago, plt count rises from 55 K to 65K s/o platelet transfusion H. pylori s/p treatment Spontaneous metartarsal L foot fracture Compression fracture of thoracic spine (T10) PSH khyphoplasty, performed by Dr. De La Vega on 08/12/16 for fractured vertebrae 07/20/11 cysto left ureteroscopy, left retrograde pylegram FH Denies FH of cancer/leukemia/lymphoma/stroke/clot SH Denies ever drink/drug/smoke All NKDA Med ultram prn, percocet prn PMD, Dr. Hernández Past Patient History - Infectious Disease Hx of Infectious Diseases: None - Tetanus Immunizations Tetanus Immunization: Unknown - Past Social History Smoking Status: Never Smoked - CARDIAC Hx Pacemaker: No - NEUROLOGICAL Hx Paralysis: No - RENAL Hx Kidney Stones: Yes - HEMATOLOGICAL/ONCOLOGICAL Hx Blood Disorders: Yes ("low platelets" as per pt) - INTEGUMENTARY Other/Comment: small 0.2cm round dry to l knee - MUSCULOSKELETAL/RHEUMATOLOGICAL Hx Back Pain: Yes (bone biopsy done 6mo ago) Hx Falls: No Hx Fractures: Yes Other/Comment: surgery for fractured vertebrae July 2016 - GENITOURINARY/GYNECOLOGICAL Hx Reproductive Disorders: No - PSYCHIATRIC Hx Emotional Abuse: No Hx Physical Abuse: No Hx Substance Use: No - SURGICAL HISTORY Other/Comment: 07/20/11 cysto left ureteroscopy, left retrograde pylegram - ANESTHESIA Hx Anesthesia Reactions: No Meds Allergies/Adverse Reactions: Allergies Allergy/AdvReac Type Severity Reaction Status Date / Time No Known Allergies Allergy Verified 09/07/16 10:53 - Medications Medications: Current Medications Cyclobenzaprine HCl (Flexeril) 10 mg PO TID [facility] Last Admin: 09/08/16 10:09 Dose: 10 mg Famotidine (Pepcid) 40 mg PO DAILY [facility] Last Admin: 09/08/16 10:09 Dose: 40 mg Gabapentin (Neurontin) 400 mg PO TID [facility] PRN Reason: Protocol Last Admin: 09/08/16 10:09 Dose: 400 mg Hydromorphone HCl (Dilaudid) 0.25 mg IVP Q4H PRN PRN Reason: Pain, moderate (4-7) Immune Globulin (Octagam 5%) 600 mls @ 100 mls/hr IV 2100 [facility] Stop: 09/10/16 21:01 Last Admin: 09/07/16 22:22 Dose: 100 mls/hr Tramadol HCl (Ultram) 50 mg PO TID PRN PRN Reason: Pain, Mild (1-3) Physical Exam - Head Exam Head Exam: NORMAL INSPECTION, NORMOCEPHALIC - Eye Exam Eye Exam: EOMI, Normal appearance, PERRL. absent: Scleral icterus Pupil Exam: NORMAL ACCOMODATION - ENT Exam ENT Exam: Mucous Membranes Moist - Neck Exam Neck exam: Positive for: Normal Inspection. Negative for: Lymphadenopathy - Respiratory Exam Respiratory Exam: Clear to Auscultation Bilateral. absent: Rales, Rhonchi, Wheezes - Cardiovascular Exam Cardiovascular Exam: REGULAR RHYTHM, +S1, +S2. absent: Systolic Murmur - GI/Abdominal Exam GI & Abdominal Exam: Normal Bowel Sounds, Soft. absent: Distended, Firm, Guarding, Rigid, Tenderness - Extremities Exam Extremities exam: Positive for: normal capillary refill. Negative for: calf tenderness, pedal edema, pedal pulses present - Back Exam Back exam: paraspinal tenderness Additional comments: T9-T10 area, no radiation, b/l - Neurological Exam Neurological exam: Alert, CN II-XII Intact, Oriented x3, Reflexes Normal Additional comments: rapid alternating movement intact - Psychiatric Exam Psychiatric exam: Normal Affect, Normal Mood - Skin Skin Exam: Dry, Petechiae (non-blanching excorciation ramsey; no petechiae in mucosa), Warm Results - Vital Signs Recent Vital Signs: Last Vital Signs Temp 97.8 F 09/08/16 07:30 Pulse 66 09/08/16 07:30 Resp 20 09/08/16 07:30 BP 112/63 09/08/16 07:30 Pulse Ox 95 09/08/16 07:30 - Labs Result Diagrams: 09/08/16 06:30 09/08/16 06:30 Labs: Laboratory Results - last 24 hr 09/07/16 09/08/16 09/08/16 11:30 06:30 06:30 WBC RBC Hgb Hct MCV MCH MCHC RDW Plt Count Manual Plt Count 20 L* MPV Gran % Lymph % (Auto) Davis % (Auto) Eos % (Auto) Baso % (Auto) Gran # Lymph # Davis # Eos # Baso # Sodium 138 Potassium 4.2 Chloride 105 Carbon Dioxide 24 Anion Gap 13 BUN 16 Creatinine 0.5 Est GFR ( Amer) > 60 Est GFR (Non-Af Amer) > 60 Random Glucose 178 H Hemoglobin A1c 6.4 Calcium 9.3 Iron TIBC % Saturation Triglycerides 54 Cholesterol 198 LDL Cholesterol Direct 120 HDL Cholesterol 58 Vitamin B12 540 Folate > 20.0 TSH 3rd Generation Urine Color Urine Appearance Urine pH Ur Specific [place] Urine Protein Urine Glucose (UA) Urine Ketones Urine Blood Urine Nitrate Urine Bilirubin Urine Urobilinogen Ur Leukocyte Esterase Urine RBC Urine WBC Ur Epithelial Cells Urine Bacteria 09/08/16 09/08/16 09/08/16 06:30 06:30 06:30 WBC 8.7 RBC 4.28 Hgb 11.8 L Hct 36.2 MCV 84.6 MCH 27.6 MCHC 32.6 RDW 13.3 Plt Count 32 L* Manual Plt Count MPV 10.9 Gran % 90.5 H Lymph % (Auto) 6.9 L Davis % (Auto) 2.6 Eos % (Auto) 0.0 L Baso % (Auto) 0.0 Gran # 7.89 H Lymph # 0.6 L Davis # 0.2 Eos # 0.0 Baso # 0.00 Sodium Potassium Chloride Carbon Dioxide Anion Gap BUN Creatinine Est GFR ( Amer) Est GFR (Non-Af Amer) Random Glucose Hemoglobin A1c Calcium Iron 111 TIBC 254 L % Saturation 44 Triglycerides Cholesterol LDL Cholesterol Direct HDL Cholesterol Vitamin B12 Folate TSH 3rd Generation 0.24 L Urine Color Urine Appearance Urine pH Ur Specific [place] Urine Protein Urine Glucose (UA) Urine Ketones Urine Blood Urine Nitrate Urine Bilirubin Urine Urobilinogen Ur Leukocyte Esterase Urine RBC Urine WBC Ur Epithelial Cells Urine Bacteria 09/08/16 08:30 WBC RBC Hgb Hct MCV MCH MCHC RDW Plt Count Manual Plt Count MPV Gran % Lymph % (Auto) Davis % (Auto) Eos % (Auto) Baso % (Auto) Gran # Lymph # Davis # Eos # Baso # Sodium Potassium Chloride Carbon Dioxide Anion Gap BUN Creatinine Est GFR ( Amer) Est GFR (Non-Af Amer) Random Glucose Hemoglobin A1c Calcium Iron TIBC % Saturation Triglycerides Cholesterol LDL Cholesterol Direct HDL Cholesterol Vitamin B12 Folate TSH 3rd Generation Urine Color Yellow Urine Appearance Clear Urine pH 6.0 Ur Specific [place] 1.015 Urine Protein Negative Urine Glucose (UA) >=1000 Urine Ketones Negative Urine Blood Moderate H Urine Nitrate Negative Urine Bilirubin Negative Urine Urobilinogen 0.2 Ur Leukocyte Esterase Negative Urine RBC 2 - 5 Urine WBC 0 - 2 Ur Epithelial Cells 0 - 2 Urine Bacteria Few Assessment & Plan - Assessment and Plan (Free Text) Plan: 71 F with Hx idiopathic thrombocytopenia purpura, recent khyphoplasty T10 due to compression fracture, admitted for intractable back pain. MRI of Thoracic spine has new minimal compression fracture inferior endplate of T9 adjacent to recent kyphoplasty. Minimal marrow edema within T8 vertebral body with no comrpession deformity. Hx ITP - IVIG - Watch progression to aplastic anemia Compression fracture - Suspected osteoporosis - Ca, Vit D, PTH, Mg, Phos - Dexa? Nomocytic anemia - TIBC low TSH low - euthyroid sick syndrome vs subclinical hypothyroidism Will s/r/d/w Dr. Ni - Date & Time Date: 09/08/16 Time: 14:01 <LastTilaez P - Last Filed: 09/09/16 19:17> Meds - Medications Medications: Current Medications Cyclobenzaprine HCl (Flexeril) 10 mg PO TID [facility] Last Admin: 09/09/16 18:35 Dose: 10 mg Famotidine (Pepcid) 40 mg PO DAILY [facility] Last Admin: 09/09/16 10:00 Dose: Not Given Gabapentin (Neurontin) 400 mg PO TID [facility] PRN Reason: Protocol Last Admin: 09/09/16 18:35 Dose: 400 mg Hydromorphone HCl (Dilaudid) 0.25 mg IVP Q4H PRN PRN Reason: Pain, moderate (4-7) Last Admin: 09/09/16 18:35 Dose: 0.25 mg Immune Globulin (Octagam 5%) 600 mls @ 100 mls/hr IV 2100 [facility] Stop: 09/10/16 21:01 Last Admin: 09/08/16 20:54 Dose: 100 mls/hr Sodium Chloride (Sodium Chloride 0.45%) 1,000 mls @ 80 mls/hr IV .[id number] [facility] Stop: 09/10/16 06:00 Ondansetron HCl (Zofran Inj) 4 mg IVP Q6H PRN PRN Reason: Nausea/Vomiting Tramadol HCl (Ultram) 50 mg PO TID PRN PRN Reason: Pain, Mild (1-3) Results - Vital Signs Recent Vital Signs: Last Vital Signs Temp 98.4 F 09/09/16 17:30 Pulse 84 09/09/16 17:30 Resp 15 09/09/16 17:30 BP 154/78 H 09/09/16 17:30 Pulse Ox 100 09/09/16 17:30 - Labs Result Diagrams: 09/09/16 07:00 09/09/16 07:00 Labs: Laboratory Results - last 24 hr 09/08/16 09/09/16 09/09/16 23:59 07:00 07:00 WBC 9.4 RBC 4.12 Hgb 11.5 L Hct 35.8 L MCV 86.9 MCH 27.9 MCHC 32.1 RDW 13.7 Plt Count 126 Manual Plt Count 124 MPV 10.1 Gran % 83.9 H Lymph % (Auto) 11.1 L Davis % (Auto) 4.8 Eos % (Auto) 0.0 L Baso % (Auto) 0.2 Gran # 7.84 H Lymph # 1.0 L Davis # 0.5 Eos # 0.0 Baso # 0.02 PT INR APTT Sodium 137 Potassium 4.1 Chloride 107 Carbon Dioxide 25 Anion Gap 9 L BUN 20 Creatinine 0.6 Est GFR ( Amer) > 60 Est GFR (Non-Af Amer) > 60 Random Glucose 185 H Calcium 8.8 Phosphorus 3.0 Magnesium 1.9 Total Bilirubin 0.4 AST 24 ALT 20 Alkaline Phosphatase 93 Total Protein 8.1 Albumin 3.4 Globulin 4.7 Albumin/Globulin Ratio 0.7 L 25-OH Vitamin D Total Blood Type A POSITIVE Antibody Screen Negative BBK History Checked Patient has bt 09/09/16 09/09/16 07:00 07:00 WBC RBC Hgb Hct MCV MCH MCHC RDW Plt Count Manual Plt Count MPV Gran % Lymph % (Auto) Davis % (Auto) Eos % (Auto) Baso % (Auto) Gran # Lymph # Davis # Eos # Baso # PT 11.3 INR 1.05 APTT 25.0 Sodium Potassium Chloride Carbon Dioxide Anion Gap BUN Creatinine Est GFR ( Amer) Est GFR (Non-Af Amer) Random Glucose Calcium Phosphorus Magnesium Total Bilirubin AST ALT Alkaline Phosphatase Total Protein Albumin Globulin Albumin/Globulin Ratio 25-OH Vitamin D Total 19.7 L Blood Type Antibody Screen BBK History Checked Attending/Attestation - Attestation I have personally seen and examined this patient.: Yes I have fully participated in the care of the patient.: Yes I have reviewed all pertinent clinical information: Yes
[2016-09-08] MEDS: Immune Globulin 50 MG/ML 600 ML IV SCH (20:54)
--- NOTE | 2016-09-08 22:31 | CP.PCM.PN ---
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 Pain was 10/10, achy and sharp at times b/l mid-back, no radiation to front, or down LE. She had occasional back pain after having a bone biopsy done but the pain now has worsened. I provided her with a prescription for Percocets and Tramadol, but pt states that the pain meds were not able to provide relief. I asked her to go to the ED for intractable back pain s/p recent kyphoplasty. d/d with dr sebastián barnett and treatment plan made No Dexa Scan was done recently. Objective - Vital Signs/Intake and Output Vital Signs (last 24 hours): Temp Pulse Resp BP Pulse Ox 97.8 F 66 20 112/63 95 09/08/16 07:30 09/08/16 07:30 09/08/16 07:30 09/08/16 07:30 09/08/16 07:30 Intake and Output: 09/08/16 09/09/16 18:59 06:59 Intake Total 540 Balance 540 - Medications Medications: Current Medications Cyclobenzaprine HCl (Flexeril) 10 mg PO TID [facility] Last Admin: 09/08/16 18:26 Dose: 10 mg Famotidine (Pepcid) 40 mg PO DAILY [facility] Last Admin: 09/08/16 10:09 Dose: 40 mg Gabapentin (Neurontin) 400 mg PO TID [facility] PRN Reason: Protocol Last Admin: 09/08/16 18:26 Dose: 400 mg Hydromorphone HCl (Dilaudid) 0.25 mg IVP Q4H PRN PRN Reason: Pain, moderate (4-7) Immune Globulin (Octagam 5%) 600 mls @ 100 mls/hr IV 2100 [facility] Stop: 09/10/16 21:01 Last Admin: 09/08/16 20:54 Dose: 100 mls/hr Sodium Chloride (Sodium Chloride 0.45%) 1,000 mls @ 80 mls/hr IV .[id number] [facility] Stop: 09/10/16 06:00 Tramadol HCl (Ultram) 50 mg PO TID PRN PRN Reason: Pain, Mild (1-3) - Constitutional Appears: Well - Head Exam Head Exam: ATRAUMATIC, NORMAL INSPECTION, NORMOCEPHALIC - Eye Exam Eye Exam: EOMI, Normal appearance, PERRL Pupil Exam: NORMAL ACCOMODATION, PERRL - ENT Exam ENT Exam: Mucous Membranes Moist, Normal Exam - Neck Exam Neck Exam: Full ROM, Normal Inspection. absent: Lymphadenopathy - Respiratory Exam Respiratory Exam: Clear to Ausculation Bilateral, NORMAL BREATHING PATTERN - Cardiovascular Exam Cardiovascular Exam: REGULAR RHYTHM, +S1, +S2. absent: Murmur - GI/Abdominal Exam GI & Abdominal Exam: Soft, Normal Bowel Sounds. absent: Tenderness - Back Exam Back Exam: NORMAL INSPECTION - Neurological Exam Neurological Exam: Alert, Awake, CN II-XII Intact, Normal Gait, Oriented x3 - Psychiatric Exam Psychiatric exam: Normal Affect, Normal Mood - Skin Skin Exam: Dry, Intact, Normal Color, Warm Assessment and Plan (1) Thrombocytopenia Status: Acute (2) Status post kyphoplasty Assessment & Plan: s/p platelet transfusion , hematology is on the case Status: Acute (3) Acute constipation Assessment & Plan: may be due to pain meds , lactulose given Status: Acute (4) DJD (degenerative joint disease) Status: Acute (5) Back pain Status: Acute (6) Compression fracture Status: Acute - Assessment and Plan (Free Text) Assessment: 71 F with Hx idiopathic thrombocytopenia purpura, recent khyphoplasty T10 due to compression fracture, admitted for intractable back pain. MRI of Thoracic spine has new minimal compression fracture inferior endplate of T9 adjacent to recent kyphoplasty. Minimal marrow edema within T8 vertebral body with no comrpession deformity. Hx ITP - IVIG - Watch progression to aplastic anemia Compression fracture - Suspected osteoporosis - Ca, Vit D, PTH, Mg, Phos - Dexa needed Nomocytic anemia - TIBC low TSH low - euthyroid sick syndrome vs subclinical hypothyroidism vianca . pain meds , kyphoplast am . as per dr sebastián barnett
[2016-09-09] MEDS ORDERED: Sodium Chloride 0.45% 1,000 ML IV SCH (06:00)
--- NOTE | 2016-09-09 07:45 | CP.PCM.PN ---
<Tammie Damon - Last Filed: 09/09/16 11:43> Subjective - Date & Time of Evaluation Date of Evaluation: 09/09/16 Time of Evaluation: 07:45 - Subjective Subjective: PGY-[address] Ni No acute event overnight will get 1 plt before kyphoplasty at 3pm Objective - Vital Signs/Intake and Output Vital Signs (last 24 hours): Temp Pulse Resp BP Pulse Ox 97.9 F 75 18 102/64 97 09/09/16 07:33 09/09/16 07:33 09/09/16 07:33 09/09/16 07:33 09/09/16 07:33 Intake and Output: 09/09/16 09/09/16 06:59 18:59 Intake Total 660 Balance 660 - Medications Medications: Current Medications Cyclobenzaprine HCl (Flexeril) 10 mg PO TID [facility] Last Admin: 09/08/16 18:26 Dose: 10 mg Famotidine (Pepcid) 40 mg PO DAILY [facility] Last Admin: 09/08/16 10:09 Dose: 40 mg Gabapentin (Neurontin) 400 mg PO TID [facility] PRN Reason: Protocol Last Admin: 09/08/16 18:26 Dose: 400 mg Hydromorphone HCl (Dilaudid) 0.25 mg IVP Q4H PRN PRN Reason: Pain, moderate (4-7) Immune Globulin (Octagam 5%) 600 mls @ 100 mls/hr IV 2100 [facility] Stop: 09/10/16 21:01 Last Admin: 09/08/16 20:54 Dose: 100 mls/hr Sodium Chloride (Sodium Chloride 0.45%) 1,000 mls @ 80 mls/hr IV .[id number] [facility] Stop: 09/10/16 06:00 Tramadol HCl (Ultram) 50 mg PO TID PRN PRN Reason: Pain, Mild (1-3) - Constitutional Appears: No Acute Distress - Head Exam Head Exam: ATRAUMATIC, NORMAL INSPECTION, NORMOCEPHALIC - Eye Exam Eye Exam: EOMI, Normal appearance, PERRL. absent: Scleral icterus Pupil Exam: NORMAL ACCOMODATION - ENT Exam ENT Exam: Mucous Membranes Moist - Respiratory Exam Respiratory Exam: Clear to Ausculation Bilateral. absent: Rales, Rhonchi, Wheezes - Cardiovascular Exam Cardiovascular Exam: REGULAR RHYTHM, +S1, +S2 - GI/Abdominal Exam GI & Abdominal Exam: Soft. absent: Guarding, Rigid, Tenderness - Extremities Exam Extremities Exam: Normal Capillary Refill. absent: Calf Tenderness, Pedal Edema Additional comments: pulses present - Neurological Exam Neurological Exam: Alert, Awake - Psychiatric Exam Psychiatric exam: Normal Affect, Normal Mood - Skin Skin Exam: Dry, Warm Assessment and Plan - Assessment and Plan (Free Text) Plan: 71 F with Hx idiopathic thrombocytopenia purpura, recent khyphoplasty T10 due to compression fracture, admitted for intractable back pain. MRI of Thoracic spine has new minimal compression fracture inferior endplate of T9 adjacent to recent kyphoplasty. Minimal marrow edema within T8 vertebral body with no comrpession deformity. Hx ITP - improving - IVIG - Watch progression to aplastic anemia Compression fracture - kyphoplasty 3pm - Suspected osteoporosis - Ca, Vit D, PTH, Mg, Phos - Dexa Tuesday Nomocytic anemia - TIBC low TSH low - euthyroid sick syndrome vs subclinical hypothyroidism Will s/r/d/w Dr. Ni <Ally Ni P - Last Filed: 09/09/16 19:38> Objective - Vital Signs/Intake and Output Vital Signs (last 24 hours): Temp Pulse Resp BP Pulse Ox 98.4 F 84 15 154/78 H 100 09/09/16 17:30 09/09/16 17:30 09/09/16 17:30 09/09/16 17:30 09/09/16 17:30 Intake and Output: 09/09/16 09/10/16 18:59 06:59 Intake Total 617 Output Total 0 Balance 617 - Medications Medications: Current Medications Cyclobenzaprine HCl (Flexeril) 10 mg PO TID [facility] Last Admin: 09/09/16 18:35 Dose: 10 mg Famotidine (Pepcid) 40 mg PO DAILY [facility] Last Admin: 09/09/16 10:00 Dose: Not Given Gabapentin (Neurontin) 400 mg PO TID [facility] PRN Reason: Protocol Last Admin: 09/09/16 18:35 Dose: 400 mg Hydromorphone HCl (Dilaudid) 0.25 mg IVP Q4H PRN PRN Reason: Pain, moderate (4-7) Last Admin: 09/09/16 18:35 Dose: 0.25 mg Immune Globulin (Octagam 5%) 600 mls @ 100 mls/hr IV 2100 [facility] Stop: 09/10/16 21:01 Last Admin: 09/08/16 20:54 Dose: 100 mls/hr Sodium Chloride (Sodium Chloride 0.45%) 1,000 mls @ 80 mls/hr IV .[id number] [facility] Stop: 09/10/16 06:00 Ondansetron HCl (Zofran Inj) 4 mg IVP Q6H PRN PRN Reason: Nausea/Vomiting Tramadol HCl (Ultram) 50 mg PO TID PRN PRN Reason: Pain, Mild (1-3) - Labs Labs: 09/09/16 07:00 09/09/16 07:00 PT 11.3 Seconds (9.9-11.8) 09/09/16 07:00 INR 1.05 (0.93-1.08) 09/09/16 07:00 APTT 25.0 Seconds (23.7-30.8) 09/09/16 07:00 Attending/Attestation - Attestation I have personally seen and examined this patient.: Yes I have fully participated in the care of the patient.: Yes I have reviewed all pertinent clinical information, including history, physical exam and plan: Yes
[2016-09-09 07:49] LABS: INR 1.05 (0.93-1.08); PROTHROMBIN TIME 11.3 Seconds (9.9-11.8)
[2016-09-09 08:02] LABS: ALB/GLOB RATIO 0.7 (1.1-1.8); ALBUMIN 3.4 g/dL (3.0-4.8); ALT/SGPT 20 U/L (7-56); AST/SGOT 24 U/L (15-39); BLOOD UREA NITROGEN 20 mg/dL (7-21); CALCIUM 8.8 mg/dL (8.4-10.5); GFR AFRICAN-AMERICAN > 60; GFR NON-AFRICAN AMERICAN > 60; MAGNESIUM 1.9 mg/dL (1.7-2.2)
[2016-09-09 09:06] LABS: BASO # 0.02 K/mm3 (0.0-2.0); BASO % 0.2 % (0.0-3.0); GRAN # 7.84 (1.4-6.5); GRAN % 83.9 % (50.0-68.0); HEMOGLOBIN 11.5 gm/dL (12.0-16.0); LYMPH % 11.1 % (22.0-35.0); MEAN CELL VOLUME 86.9 fL (80.0-105.0); MEAN CORPUSCULAR HEMOGLOBIN 27.9 pg (25.0-35.0); MEAN CORPUSCULAR HGB CONC 32.1 g/dl (31.0-37.0); MEAN PLATELET VOLUME 10.1 fl (7.0-11.0); MONO # 0.5 (0.1-0.6); MONO % 4.8 % (1.0-6.0); RBC 4.12 10^6/uL (3.5-6.1); RED CELL DISTRIBUTION WIDTH 13.7 % (11.5-14.5); WHITE BLOOD COUNT 9.4 10^3/ul (4.5-11.0)
[2016-09-09 09:07] LABS: PLATELET COUNT 126 10^3/uL (120.0-450.0)
[2016-09-09 10:49] LABS: PLATELET COUNT MANUAL 124 K/mm3 (120-450)
[2016-09-09] MEDS ORDERED: DiphenhydrAMINE 50 mg/ml Inj IVP STA (12:41)
[2016-09-09] MEDS ORDERED: Midazolam 2 MG/2 ML VIAL ONE ×2 (14:45→15:48)
[2016-09-09] MEDS ORDERED: Lidocaine 2% Inj (20ml) ONE (14:46)
[2016-09-09] MEDS ORDERED: Iohexol 350mgl/ml 50 ML ONE (15:05)
--- NOTE | 2016-09-09 17:01 | VASCULAR ---
PROCEDURE: 1. T9 kyphoplasty. . HISTORY: Previous T10 kyphoplasty. ITP on steroids. Severe osteoporosis. Severe refractory acute thoracic back pain. New T9 compression fracture on MRI. PHYSICIAN(S): Walker De La Vega MD. TECHNIQUE: he relative risks and indications of the procedure were explained to the patient and her family and informed written consent obtained. The patient was placed prone on the arteriography table and the thoracolumbar spine prepped and draped in the usual sterile fashion. Conscious sedation and monitoring were provided throughout the procedure by a nurse. The T9 vertebral body was carefully localized with fluoroscopy. The skin and soft tissues were anesthetized with 1% Xylocaine. Under direct fluoroscopic guidance, bilateral transpedicular bone needles were placed into the posterior aspect of the T9 vertebral body. Next bilateral 10 mm bone balloons were placed in the mid portion of the T9 vertebral body. They were inflated to approximately 3 cc apiece with dilute contrast. The balloons were removed and 4.5 cc of barium-impregnated PMMA cement instilled into the T9 vertebral body. No extravasation was seen. The bone needles were removed. The patient tolerated the procedure well. IMPRESSION: 1. Fluoroscopically-guided T9 kyphoplasty.
[2016-09-09] MEDS: HYDROmorphone 0.5 mg/0.5 ml ISec IVP PRN (18:35)
--- NOTE | 2016-09-09 22:43 | CP.PCM.PN ---
Subjective - Date & Time of Evaluation Date of Evaluation: 09/09/16 Time of Evaluation: 11:00 - Subjective Subjective: 71 F with Hx idiopathic thrombocytopenia purpura (Dx 2016, confirmed via bone Bx ), recent khyphoplasty T10 due to compression fracture, came to ED for excruciating back pain, thoracic and lumbar area. 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 Pain was 10/10, achy and sharp at times b/l mid-back, no radiation to front, or down LE. She had occasional back pain after having a bone biopsy done but the pain now has worsened. i , provided her with a prescription for Percocets and Tramadol, but pt states that the pain meds were not able to provide relief. i asked her to go to the ED for intractable back pain s/p recent kyphoplasty. Objective - Vital Signs/Intake and Output Vital Signs (last 24 hours): Temp Pulse Resp BP Pulse Ox 98.4 F 84 15 154/78 H 100 09/09/16 17:30 09/09/16 17:30 09/09/16 17:30 09/09/16 17:30 09/09/16 17:30 Intake and Output: 09/09/16 09/10/16 18:59 06:59 Intake Total 617 Output Total 0 Balance 617 - Medications Medications: Current Medications Cyclobenzaprine HCl (Flexeril) 10 mg PO TID [facility] Last Admin: 09/09/16 18:35 Dose: 10 mg Famotidine (Pepcid) 40 mg PO DAILY [facility] Last Admin: 09/09/16 10:00 Dose: Not Given Famotidine (Pepcid) 20 mg IVP ONCE ONE Stop: 09/10/16 21:14 Gabapentin (Neurontin) 400 mg PO TID [facility] PRN Reason: Protocol Last Admin: 09/09/16 18:35 Dose: 400 mg Hydromorphone HCl (Dilaudid) 0.25 mg IVP Q4H PRN PRN Reason: Pain, moderate (4-7) Last Admin: 09/09/16 18:35 Dose: 0.25 mg Immune Globulin (Octagam 5%) 600 mls @ 100 mls/hr IV 2100 [facility] Stop: 09/10/16 21:01 Last Admin: 09/08/16 20:54 Dose: 100 mls/hr Sodium Chloride (Sodium Chloride 0.45%) 1,000 mls @ 80 mls/hr IV .[id number] [facility]AC Stop: 09/10/16 06:00 Ondansetron HCl (Zofran Inj) 4 mg IVP Q6H PRN PRN Reason: Nausea/Vomiting Tramadol HCl (Ultram) 50 mg PO TID PRN PRN Reason: Pain, Mild (1-3) - Labs Labs: 09/09/16 07:00 09/09/16 07:00 PT 11.3 Seconds (9.9-11.8) 09/09/16 07:00 INR 1.05 (0.93-1.08) 09/09/16 07:00 APTT 25.0 Seconds (23.7-30.8) 09/09/16 07:00 - Constitutional Appears: Well - Head Exam Head Exam: ATRAUMATIC, NORMAL INSPECTION, NORMOCEPHALIC - Eye Exam Eye Exam: EOMI, Normal appearance, PERRL Pupil Exam: NORMAL ACCOMODATION, PERRL - ENT Exam ENT Exam: Mucous Membranes Moist, Normal Exam - Neck Exam Neck Exam: Full ROM, Normal Inspection. absent: Lymphadenopathy - Respiratory Exam Respiratory Exam: Clear to Ausculation Bilateral, NORMAL BREATHING PATTERN - Cardiovascular Exam Cardiovascular Exam: REGULAR RHYTHM, +S1, +S2. absent: Murmur - GI/Abdominal Exam GI & Abdominal Exam: Soft, Normal Bowel Sounds. absent: Tenderness - Extremities Exam Extremities Exam: Full ROM, Normal Capillary Refill, Normal Inspection. absent : Joint Swelling, Pedal Edema - Back Exam Back Exam: NORMAL INSPECTION - Neurological Exam Neurological Exam: Alert, Awake, CN II-XII Intact, Normal Gait, Oriented x3 - Psychiatric Exam Psychiatric exam: Normal Affect, Normal Mood - Skin Skin Exam: Dry, Intact, Normal Color, Warm Assessment and Plan (1) Thrombocytopenia Status: Acute (2) Status post kyphoplasty Status: Acute (3) Acute constipation Status: Acute (4) DJD (degenerative joint disease) Status: Acute (5) Back pain Status: Acute (6) Compression fracture Status: Acute - Assessment and Plan (Free Text) Assessment: 71 F with Hx idiopathic thrombocytopenia purpura, recent khyphoplasty T10 due to compression fracture, admitted for intractable back pain. MRI of Thoracic spine has new minimal compression fracture inferior endplate of T9 adjacent to recent kyphoplasty. Minimal marrow edema within T8 vertebral body with no comrpession deformity. Hx ITP - IVIG - Watch progression to aplastic anemia Compression fracture - Suspected osteoporosis - Ca, Vit D, PTH, Mg, Phos - Dexa? Nomocytic anemia - TIBC low TSH low - euthyroid sick syndrome vs subclinical hypothyroidism pt went for surgery today , now need pt , regularly
[2016-09-09] MEDS: Immune Globulin 50 MG/ML 600 ML IV SCH (23:44)
[2016-09-10 07:11] LABS: BASO # 0.02 K/mm3 (0.0-2.0); BASO % 0.3 % (0.0-3.0); GRAN # 6.27 (1.4-6.5); GRAN % 88.5 % (50.0-68.0); HEMOGLOBIN 10.9 gm/dL (12.0-16.0); LYMPH # 0.6 (1.2-3.4); LYMPH % 8.1 % (22.0-35.0); MEAN CELL VOLUME 86.7 fL (80.0-105.0); MEAN CORPUSCULAR HEMOGLOBIN 28.5 pg (25.0-35.0); MEAN CORPUSCULAR HGB CONC 32.8 g/dl (31.0-37.0); MEAN PLATELET VOLUME 9.3 fl (7.0-11.0); MONO # 0.2 (0.1-0.6); MONO % 3.1 % (1.0-6.0); PLATELET COUNT 237 10^3/uL (120.0-450.0); RBC 3.83 10^6/uL (3.5-6.1); RED CELL DISTRIBUTION WIDTH 13.5 % (11.5-14.5); WHITE BLOOD COUNT 7.1 10^3/ul (4.5-11.0)
[2016-09-10 07:18] LABS: BLOOD UREA NITROGEN 12 mg/dL (7-21); CALCIUM 8.8 mg/dL (8.4-10.5); GFR AFRICAN-AMERICAN > 60; GFR NON-AFRICAN AMERICAN > 60
[2016-09-10] MEDS: HYDROmorphone 0.5 mg/0.5 ml ISec IVP PRN ×3 (08:22→17:34)
[2016-09-10 09:14] LABS: PLATELET COUNT MANUAL 242 K/mm3 (120-450)
[2016-09-10] MEDS ORDERED: IMMUNE GLOBULIN 100 MG/ML IV ONE (16:45)
--- NOTE | 2016-09-10 16:47 | CP.PCM.PN ---
<Tammie Damon - Last Filed: 09/10/16 18:14> Subjective - Date & Time of Evaluation Date of Evaluation: 09/10/16 Time of Evaluation: 16:26 - Subjective Subjective: PGY-[address] Ni Translated by son. Pt has + BM, soft. Urination fine. lower back pain improves; pain med controlled pain for about 4 hrs. Objective - Vital Signs/Intake and Output Vital Signs (last 24 hours): Temp Pulse Resp BP Pulse Ox 97.8 F 68 20 118/67 95 09/10/16 07:30 09/10/16 07:30 09/10/16 07:30 09/10/16 07:30 09/10/16 07:30 Intake and Output: 09/10/16 09/10/16 06:59 18:59 Intake Total 240 240 Balance 240 240 - Medications Medications: Current Medications Famotidine (Pepcid) 40 mg PO DAILY [facility] Last Admin: 09/10/16 10:27 Dose: 40 mg Gabapentin (Neurontin) 400 mg PO TID [facility] PRN Reason: Protocol Last Admin: 09/10/16 10:27 Dose: 400 mg Hydromorphone HCl (Dilaudid) 0.25 mg IVP Q4H PRN PRN Reason: Pain, moderate (4-7) Last Admin: 09/10/16 12:35 Dose: 0.25 mg Immune Globulin (Octagam 5%) 600 mls @ 100 mls/hr IV 2100 [facility] Stop: 09/10/16 21:01 Last Admin: 09/09/16 23:44 Dose: 100 mls/hr Immune Globulin (Octagam 5%) 600 gm IV 2100 [facility] Stop: 09/12/16 21:01 Ondansetron HCl (Zofran Inj) 4 mg IVP Q6H PRN PRN Reason: Nausea/Vomiting Tramadol HCl (Ultram) 50 mg PO TID PRN PRN Reason: Pain, Mild (1-3) - Labs Labs: 09/10/16 06:45 09/10/16 06:45 PT 11.3 Seconds (9.9-11.8) 09/09/16 07:00 INR 1.05 (0.93-1.08) 09/09/16 07:00 APTT 25.0 Seconds (23.7-30.8) 09/09/16 07:00 - Constitutional Appears: No Acute Distress - Head Exam Head Exam: ATRAUMATIC, NORMAL INSPECTION, NORMOCEPHALIC - Eye Exam Eye Exam: EOMI, Normal appearance, PERRL. absent: Scleral icterus Pupil Exam: NORMAL ACCOMODATION - ENT Exam ENT Exam: Mucous Membranes Moist Additional comments: no petechiae in mouth - Respiratory Exam Respiratory Exam: Clear to Ausculation Bilateral. absent: Rales, Rhonchi, Wheezes - Cardiovascular Exam Cardiovascular Exam: REGULAR RHYTHM, +S1, +S2 - GI/Abdominal Exam GI & Abdominal Exam: Soft. absent: Distended, Guarding, Rigid, Tenderness - Extremities Exam Extremities Exam: Normal Capillary Refill. absent: Calf Tenderness, Pedal Edema - Neurological Exam Neurological Exam: Alert, Awake, Oriented x3 - Psychiatric Exam Psychiatric exam: Normal Affect, Normal Mood - Skin Skin Exam: Dry, Warm Assessment and Plan - Assessment and Plan (Free Text) Plan: 71 F with Hx idiopathic thrombocytopenia purpura, recent khyphoplasty T10 due to compression fracture, admitted for intractable back pain. MRI of Thoracic spine has new minimal compression fracture inferior endplate of T9 adjacent to recent kyphoplasty. Minimal marrow edema within T8 vertebral body with no comrpession deformity. kyphoplasty on 09/09 (POD#1) Hx ITP - improving - IVIG x totoal of 5 days - Watch progression to aplastic anemia - Danazol 100 BID Compression fracture - kyphoplasty - Suspected osteoporosis - Ca, Vit D, PTH, Mg, Phos - Dexa Tuesday Nomocytic anemia - TIBC low TSH low - euthyroid sick syndrome vs subclinical hypothyroidism TCU consult s/r/d/w Dr. Ni <Ally Ni - Last Filed: 09/12/16 00:43> Objective - Vital Signs/Intake and Output Vital Signs (last 24 hours): Temp Pulse Resp BP Pulse Ox 98.2 F 72 16 106/63 96 09/11/16 07:39 09/11/16 07:39 09/11/16 07:39 09/11/16 07:39 09/11/16 07:39 - Labs Labs: 09/11/16 06:10 09/10/16 06:45 PT 11.3 Seconds (9.9-11.8) 09/09/16 07:00 INR 1.05 (0.93-1.08) 09/09/16 07:00 APTT 25.0 Seconds (23.7-30.8) 09/09/16 07:00 Attending/Attestation - Attestation I have personally seen and examined this patient.: Yes I have fully participated in the care of the patient.: Yes I have reviewed all pertinent clinical information, including history, physical exam and plan: Yes
--- NOTE | 2016-09-10 19:29 | CP.PCM.PN ---
Subjective - Date & Time of Evaluation Date of Evaluation: 09/10/16 Time of Evaluation: 11:00 - Subjective Subjective: Translated by son. Pt has + BM, soft. Urination fine. lower back pain improves; pain med controlled pain for about 4 hrs.and starting pain as soonas meds effect affect is over . no n.v. d Objective - Vital Signs/Intake and Output Vital Signs (last 24 hours): Temp Pulse Resp BP Pulse Ox 98.4 F 83 20 114/66 94 L 09/10/16 16:59 09/10/16 16:59 09/10/16 16:59 09/10/16 16:59 09/10/16 16:59 Intake and Output: 09/10/16 09/11/16 18:59 06:59 Intake Total 240 Balance 240 - Medications Medications: Current Medications Danazol (Danazol) 100 mg PO BID [facility] Famotidine (Pepcid) 40 mg PO DAILY [facility] Last Admin: 09/10/16 10:27 Dose: 40 mg Gabapentin (Neurontin) 400 mg PO TID [facility] PRN Reason: Protocol Last Admin: 09/10/16 17:34 Dose: 400 mg Hydromorphone HCl (Dilaudid) 0.25 mg IVP Q4H PRN PRN Reason: Pain, moderate (4-7) Last Admin: 09/10/16 17:34 Dose: 0.25 mg Immune Globulin (Octagam 10%) 300 mls @ 50 mls/hr IV 2100 [facility] Ondansetron HCl (Zofran Inj) 4 mg IVP Q6H PRN PRN Reason: Nausea/Vomiting Tramadol HCl (Ultram) 50 mg PO TID PRN PRN Reason: Pain, Mild (1-3) - Labs Labs: 09/10/16 06:45 09/10/16 06:45 PT 11.3 Seconds (9.9-11.8) 09/09/16 07:00 INR 1.05 (0.93-1.08) 09/09/16 07:00 APTT 25.0 Seconds (23.7-30.8) 09/09/16 07:00 - Constitutional Appears: Well - Head Exam Head Exam: ATRAUMATIC, NORMAL INSPECTION, NORMOCEPHALIC - Eye Exam Eye Exam: EOMI, Normal appearance, PERRL Pupil Exam: NORMAL ACCOMODATION, PERRL - ENT Exam ENT Exam: Mucous Membranes Moist, Normal Exam - Neck Exam Neck Exam: Full ROM, Normal Inspection. absent: Lymphadenopathy - Respiratory Exam Respiratory Exam: Clear to Ausculation Bilateral, NORMAL BREATHING PATTERN - Cardiovascular Exam Cardiovascular Exam: REGULAR RHYTHM, +S1, +S2. absent: Murmur - GI/Abdominal Exam GI & Abdominal Exam: Soft, Normal Bowel Sounds. absent: Tenderness - Back Exam Back Exam: NORMAL INSPECTION - Neurological Exam Neurological Exam: Alert, Awake, CN II-XII Intact, Normal Gait, Oriented x3 - Psychiatric Exam Psychiatric exam: Normal Affect, Normal Mood - Skin Skin Exam: Dry, Intact, Normal Color, Warm Assessment and Plan (1) Thrombocytopenia Status: Acute (2) Status post kyphoplasty Status: Acute (3) Acute constipation Status: Acute (4) DJD (degenerative joint disease) Status: Acute (5) Back pain Status: Acute (6) Compression fracture Status: Acute - Assessment and Plan (Free Text) Assessment: 71 F with Hx idiopathic thrombocytopenia purpura, recent khyphoplasty T10 due to compression fracture, admitted for intractable back pain. MRI of Thoracic spine has new minimal compression fracture inferior endplate of T9 adjacent to recent kyphoplasty. Minimal marrow edema within T8 vertebral body with no comrpession deformity. kyphoplasty on 7 (POD#1) Hx ITP - improving - IVIG x totoal of 5 days - Watch progression to aplastic anemia - Danazol 100 BID Compression fracture - kyphoplasty - Suspected osteoporosis - Ca, Vit D, PTH, Mg, Phos - Dexa Tuesday Nomocytic anemia - TIBC low TSH low - euthyroid sick syndrome vs subclinical hypothyroidism TCU con, pt , pain management , need dexa , d/d with [employer] enoch
[2016-09-10] MEDS ORDERED: IMMUNE GLOBULIN 100 MG/ML IV SCH (21:00)
[2016-09-10] MEDS ORDERED: Immune Globulin 50 MG/ML (OCTAGAM 5%) 10 GM/200 ML IV SCH (21:00)
[2016-09-10] MEDS ORDERED: Immune Globulin 50 MG/ML 600 ML IV SCH (21:00)
[2016-09-10] MEDS ORDERED: HYDROmorphone 1 mg/ml ISec IVP PRN (22:15)
[2016-09-11 06:22] LABS: BASO # 0.01 K/mm3 (0.0-2.0); BASO % 0.1 % (0.0-3.0); GRAN # 6.01 (1.4-6.5); GRAN % 85.5 % (50.0-68.0); HEMOGLOBIN 11.2 gm/dL (12.0-16.0); LYMPH # 0.7 (1.2-3.4); LYMPH % 10.1 % (22.0-35.0); MEAN CELL VOLUME 86.9 fL (80.0-105.0); MEAN CORPUSCULAR HEMOGLOBIN 28.7 pg (25.0-35.0); MEAN PLATELET VOLUME 9.1 fl (7.0-11.0); MONO # 0.3 (0.1-0.6); MONO % 4.3 % (1.0-6.0); PLATELET COUNT 273 10^3/uL (120.0-450.0); RED CELL DISTRIBUTION WIDTH 13.3 % (11.5-14.5)
[2016-09-11 07:27] LABS: PLATELET COUNT MANUAL 275 K/mm3 (120-450)
--- NOTE | 2016-09-11 11:26 | DEXA RM ---
PROCEDURE: DEXA scan HISTORY: Osteoporosis COMPARISON: None TECHNIQUE: DEXA scan was performed of the lumbar spine and left hip. This report includes standards established by the ISCD (International Society for Clinical Densitometry) and Osteoporosis criteria from the World Health Organization. FINDINGS: LUMBAR SPINE: The average bone mineral density is 0.609 g/sq cm. This corresponds to a T-score of -4.0 LEFT HIP: The average bone mineral density of the entire hip, excluding yousif's triangle is 0.603 g/sq cm. This corresponds to a T-score of -2.7. LEFT FOREARM : Note also that BMD of the left forearm also on calculated. Average bone mineral density is 0.310 with T-score -5.0 IMPRESSION: LUMBAR SPINE: Osteoporosis. Fracture risk high LEFT HIP: Osteoporosis. Fracture risk high LEFT FOREARM: Osteoporosis. Fracture risk high Note: Establish standard determined by World Health Organization for normal standard T score range is 0-1. For osteopenia, T score standard deviation is -1 to -2.5. For osteoporosis, T score standard deviation is -2.5 and below. Relative fracture risk is approximately as determined by World Health Organization 4x in osteopenia and 8x in osteoporosis, compared to young
[2016-09-11 11:53] VITALS: BP 106/63; PULSE 72; TEMP 98.2; O2SAT 96
[2016-09-11 12:40] VITALS: RESP 16
[2016-09-11] MEDS ORDERED: Immune Globulin 50 MG/ML (OCTAGAM 5%) 10 GM/200 ML IV SCH (21:00)
--- NOTE | 2016-09-11 21:46 | PN ---
DATE OF EVALUATION: 09/11/2016 The patient is in room 561, bed 2. The patient was spoken through translation as she speaks only Macedonian. The patient is moving her bowels and urinating well. Back pain is still an issue, but it is slowly improving, controlled with pain medicines that last about 4 hours. OBJECTIVE: Vital signs: Stable. T-max is 98.4, pulse is 68, respirations 20, blood pressure is 118/67, pulse ox is 95% on room air. The patient's medications were reviewed. She is on famotidine 40 mg daily, gabapentin 400 mg t.i.d., Dilaudid 0.25 mg q4. h. p.r.n. She is on IV gamma globulin that she has been getting every day 30 g IV, the last dose for the gamma globulin would be another 2 days, which will include today and tomorrow, for total of 5 days. The patient is on Zofran p.r.n., tramadol 50 mg t.i.d. LABORATORY: Lab data from today reveals a white count of 7, hemoglobin 11.2, hematocrit 33, platelet count is now up to 275,000, when it was only 16,000 on the day of admission, which is 09/07/2016, probably it is a positive response to the IV gamma globulin. Electrolytes unremarkable. BUN is 12, creatinine 0.6. Random sugar is 158. Electrolytes and LFTs have been unremarkable on the gamma globulin. Vitamin D levels are very low. The patient had a bone density done yesterday, which reveals the patient to be severely osteoporotic and she may be requiring IV bisphosphonates to help her with osteoporosis in conjunction with the calcium and vitamin D. ASSESSMENT: This is a 71-year-old female, who was initially diagnosed to have ITP, for which she was put on prednisone, could not tolerate it, same doses of 20 mg, even though the counts responded to the low dose prednisone. So, the prednisone was held and in the interim, she had a fracture of one of the metatarsals in the left foot, which healed and then now suddenly she started having back pain for which she was admitted to the hospital and mid back pain, she had compression of fracture of T10 for which she had a kyphoplasty and now she was readmitted with again worsening back pain and now was found to have T9 fracture also for which she had a kyphoplasty. The patient has been started on IV gamma globulin and more recently has been placed on Danazol as well to help with her low platelet count. The patient is status post kyphoplasty on 09/09/2016. PLAN: Plan would be to continue IVIG total for 5 days, watch progression to aplastic anemia, add Danazol 100 b.i.d. Based on the MRI and based on the osteoporosis bone densitometry, in addition to calcium B, vitamin D supplementation, she will need Reclast or one of the bisphosphonates. Routine post exam instructions have been given to the patient. Speak to the doctors involved in the care as well and speak to the family as well. Time spent with the patient about 45 minutes. Ally Ni MD NIS[facility]
--- NOTE | 2016-09-12 00:20 | CP.PCM.DIS ---
Provider - Provider Date of Admission: 09/08/16 16:13 ditating discharge summery for09/11/16 Attending physician: Corazon Hernández MD Time Spent in preparation of Discharge (in minutes): 60 Diagnosis - Discharge Diagnosis (1) Thrombocytopenia Status: Acute (2) Status post kyphoplasty Status: Acute (3) Acute constipation Status: Acute (4) DJD (degenerative joint disease) Status: Acute (5) Back pain Status: Acute (6) Compression fracture Status: Acute (7) Back pain Status: Acute Hospital Course - Lab Results Lab Results: Most Recent Lab Values WBC 7.0 10^3/ul (4.5-11.0) 09/11/16 06:10 RBC 3.90 10^6/uL (3.5-6.1) 09/11/16 06:10 Hgb 11.2 gm/dL (12.0-16.0) L 09/11/16 06:10 Hct 33.9 % (36.0-48.0) L 09/11/16 06:10 MCV 86.9 fL (80.0-105.0) 09/11/16 06:10 MCH 28.7 pg (25.0-35.0) 09/11/16 06:10 MCHC 33.0 g/dl (31.0-37.0) 09/11/16 06:10 RDW 13.3 % (11.5-14.5) 09/11/16 06:10 Plt Count 273 10^3/uL (120.0-450.0) 09/11/16 06:10 Manual Plt Count 275 K/mm3 (120-450) 09/11/16 06:10 MPV 9.1 fl (7.0-11.0) 09/11/16 06:10 Gran % 85.5 % (50.0-68.0) H 09/11/16 06:10 Lymph % (Auto) 10.1 % (22.0-35.0) L 09/11/16 06:10 Yell % (Auto) 4.3 % (1.0-6.0) 09/11/16 06:10 Eos % (Auto) 0.0 % (1.5-5.0) L 09/11/16 06:10 Baso % (Auto) 0.1 % (0.0-3.0) 09/11/16 06:10 Gran # 6.01 (1.4-6.5) 09/11/16 06:10 Lymph # 0.7 (1.2-3.4) L 09/11/16 06:10 Yell # 0.3 (0.1-0.6) 09/11/16 06:10 Eos # 0.0 (0.0-0.7) 09/11/16 06:10 Baso # 0.01 K/mm3 (0.0-2.0) 09/11/16 06:10 PT 11.3 Seconds (9.9-11.8) 09/09/16 07:00 INR 1.05 (0.93-1.08) 09/09/16 07:00 APTT 25.0 Seconds (23.7-30.8) 09/09/16 07:00 Sodium 137 mmol/L (132-148) 09/10/16 06:45 Potassium 4.3 mmol/L (3.6-5.0) 09/10/16 06:45 Chloride 106 mmol/L (98-107) 09/10/16 06:45 Carbon Dioxide 26 mmol/L (21-33) 09/10/16 06:45 Anion Gap 9 (10-20) L 09/10/16 06:45 BUN 12 mg/dL (7-21) 09/10/16 06:45 Creatinine 0.6 mg/dL (0.5-1.4) 09/10/16 06:45 Est GFR ( Amer) > 60 09/10/16 06:45 Est GFR (Non-Af Amer) > 60 09/10/16 06:45 Random Glucose 154 mg/dL (70-110) H 09/10/16 06:45 Hemoglobin A1c 6.4 % (4.2-6.5) 09/08/16 06:30 Calcium 8.8 mg/dL (8.4-10.5) 09/10/16 06:45 Phosphorus 3.0 mg/dL (2.5-4.5) 09/09/16 07:00 Magnesium 1.9 mg/dL (1.7-2.2) 09/09/16 07:00 Iron 111 ug/dL (45-180) 09/08/16 06:30 TIBC 254 ug/dL (265-497) L 09/08/16 06:30 % Saturation 44 % (20-55) 09/08/16 06:30 Total Bilirubin 0.4 mg/dL (0.2-1.3) 09/09/16 07:00 AST 24 U/L (15-39) 09/09/16 07:00 ALT 20 U/L (7-56) 09/09/16 07:00 Alkaline Phosphatase 93 U/L (38-133) 09/09/16 07:00 Total Protein 8.1 g/dL (5.8-8.3) 09/09/16 07:00 Albumin 3.4 g/dL (3.0-4.8) 09/09/16 07:00 Globulin 4.7 gm/dL 09/09/16 07:00 Albumin/Globulin Ratio 0.7 (1.1-1.8) L 09/09/16 07:00 Triglycerides 54 mg/dL (35-160) 09/08/16 06:30 Cholesterol 198 mg/dL (130-200) 09/08/16 06:30 LDL Cholesterol Direct 120 mg/dL (0-129) 09/08/16 06:30 HDL Cholesterol 58 mg/dL (29-60) 09/08/16 06:30 Vitamin B12 540 pg/mL (239-931) 09/08/16 06:30 25-OH Vitamin D Total 19.7 NG/ML (30.0-100.0) L 09/09/16 07:00 Folate > 20.0 ng/mL 09/08/16 06:30 TSH 3rd Generation 0.24 mIU/mL (0.46-4.68) L 09/08/16 06:30 PTH Intact Whole Molec 44 pg/mL (14-64) 09/09/16 07:00 Urine Color Yellow (YELLOW) 09/08/16 08:30 Urine Appearance Clear (CLEAR) 09/08/16 08:30 Urine pH 6.0 (4.7-8.0) 09/08/16 08:30 Ur Specific [place] 1.015 (1.005-1.035) 09/08/16 08:30 Urine Protein Negative mg/dL (<30 mg/dL) 09/08/16 08:30 Urine Glucose (UA) >=1000 mg/dL (NEGATIVE) 09/08/16 08:30 Urine Ketones Negative mg/dL (NEGATIVE) 09/08/16 08:30 Urine Blood Moderate (NEGATIVE) H 09/08/16 08:30 Urine Nitrate Negative (NEGATIVE) 09/08/16 08:30 Urine Bilirubin Negative (NEGATIVE) 09/08/16 08:30 Urine Urobilinogen 0.2 E.U./dL (<1 E.U./dL) 09/08/16 08:30 Ur Leukocyte Esterase Negative [place]/uL (NEGATIVE) 09/08/16 08:30 Urine RBC 2 - 5 /hpf (0-2) 09/08/16 08:30 Urine WBC 0 - 2 /hpf (0-6) 09/08/16 08:30 Ur Epithelial Cells 0 - 2 /hpf (0-5) 09/08/16 08:30 Urine Bacteria Few (NEG) 09/08/16 08:30 Direct Plt-Bound IgG Ab Negative (NEGATIVE) 09/09/16 10:00 Blood Type A POSITIVE 09/08/16 23:59 Antibody Screen Negative 09/08/16 23:59 BBK History Checked Patient has bt 09/08/16 23:59 - Hospital Course Hospital Course: The patient is a 71yo female, presents to the ED for evaluation of excruciating back pain, in her thoracic and lumbar area, present since the past three days. Reports her back pain is worse with movement and is achy and sharp at time. Pt reports she has had back pain for the past 6 months after having a bone biopsy done but states the pain worsened, prompting her visit to the facility. Pt states she visited her PMD, Dr. Hernández who provided her with a prescription for Percocets and Tramadol, which she has been taking with no relief. States she was given a prescription by Dr. Hernández for an ED visit for evaluation of her back pain. She denies any associated fever, numbness, weakness or incontinence. Pt offers no additional medical complaints. her ls xrays was done as out pt showed compression fracture ot sherry Dyer/ba with dr walker barnett , pt need procedure , but platelets are low , so need platelets transfusion , hematology is on the case - Assessment and Plan (Free Text) Plan: 71 F with Hx idiopathic thrombocytopenia purpura, recent khyphoplasty T10 due to compression fracture, admitted for intractable back pain. MRI of Thoracic spine has new minimal compression fracture inferior endplate of T9 adjacent to recent kyphoplasty. Minimal marrow edema within T8 vertebral body with no comrpession deformity. kyphoplasty on 09/09 (POD#1) Hx ITP - improving - IVIG x totoal of 5 days - Watch progression to aplastic anemia - Danazol 100 BID Compression fracture - kyphoplasty - Suspected osteoporosis - Ca, Vit D, PTH, Mg, Phos - Dexa Tuesday Nomocytic anemia - TIBC low TSH low - euthyroid sick syndrome vs subclinical hypothyroidism TCU transfer Discharge Exam - Head Exam Head Exam: ATRAUMATIC, NORMAL INSPECTION, NORMOCEPHALIC - Eye Exam Eye Exam: EOMI, Normal appearance, PERRL Pupil Exam: NORMAL ACCOMODATION, PERRL - GI/Abdominal Exam GI & Abdominal Exam: Normal Bowel Sounds - Rectal Exam Rectal Exam: NORMAL INSPECTION - Exam Exam: Circumcision, NORMAL INSPECTION External exam: NORMAL EXTERNAL EXAM Speculum exam: NORMAL SPECULUM EXAM Bimanual exam: NORMAL BIMANUAL EXAM - Neurological Exam Neurological exam: Alert, CN II-XII Intact, Normal Gait, Oriented x3, Reflexes Normal - Psychiatric Exam Psychiatric exam: Normal Affect, Normal Mood - Skin Skin Exam: Dry, Intact, Normal Color, Warm Discharge Plan - Discharge Medications Prescriptions: Hydromorphone HCl/Pf [Dilaudid 0.5 mg/0.5 ml Syringe] 0.25 mg IVP Q4 PRN #10 syringe PRN Reason: pain - Follow Up Plan Condition: FAIR Disposition: HOME/ ROUTINE Instructions: Constipation (DC), Constipation (GEN), Pneumococcal Vaccine for Adults (GEN), Heart Healthy Diet (DC), Aplastic Anemia (DC), Pain Management After Surgery (DC), Thrombocytopenic Purpura (GEN), Kyphoplasty (DC), Back Pain (GEN), Fall Prevention (DC) Referrals: Corazon Hernández MD [Staff Provider] - Ally Ni MD [Staff Provider] - Walker Barnett MD [Staff Provider] -
== END 2016-09-11 12:31 | DRG 516 ==
LOC: ED 10:26 → EROBSV 11:24 → ERH 16:08 → 5RNO 18:03 → OBSVTOIN 09-08 16:13
PROVIDERS: ADMIT Internal Medicine; ATTEND Internal Medicine
PROC: 0PS43ZZ Reposition Thoracic Vertebra, Percutaneous Approach (ICD-10-PCS; principal; 2016-09-09)
PROC: 0PU43JZ Supplement Thoracic Vertebra with Synthetic Substitute, Percutaneous Approach (ICD-10-PCS; 2016-09-09)
PROC: 6A550Z2 Pheresis of Platelets, Single (ICD-10-PCS; 2016-09-09)
PROC: 30233S1 Transfusion of Nonautologous Globulin into Peripheral Vein, Percutaneous Approach (ICD-10-PCS; 2016-09-10)
DX: M48.54XA Collapsed vertebra, not elsewhere classified, thoracic region, initial encounter for fracture (principal); D69.3 Immune thrombocytopenic purpura; K59.00 Constipation, unspecified; M19.90 Unspecified osteoarthritis, unspecified site; E07.81 Sick-euthyroid syndrome; E02 Subclinical iodine-deficiency hypothyroidism

== ENCOUNTER 2016-09-11 12:30 | Inpatient (IN) | payer OTHER ==
[2016-09-12] MEDS: HYDROmorphone 1 mg/ml ISec IVP PRN ×2 (05:11→12:45)
[2016-09-12 08:25] LABS: BASO # 0.05 K/mm3 (0.0-2.0); BASO % 0.5 % (0.0-3.0); EOS # 0.1 (0.0-0.7); EOS % 1.2 % (1.5-5.0); HEMOGLOBIN 11.4 gm/dL (12.0-16.0); LYMPH # 3.2 (1.2-3.4); LYMPH % 34.7 % (22.0-35.0); MEAN CELL VOLUME 86.8 fL (80.0-105.0); MEAN CORPUSCULAR HEMOGLOBIN 27.9 pg (25.0-35.0); MEAN CORPUSCULAR HGB CONC 32.2 g/dl (31.0-37.0); MONO # 0.6 (0.1-0.6); MONO % 6.6 % (1.0-6.0); PLATELET COUNT 397 10^3/uL (120.0-450.0); RBC 4.08 10^6/uL (3.5-6.1); RED CELL DISTRIBUTION WIDTH 13.9 % (11.5-14.5); WHITE BLOOD COUNT 9.3 10^3/ul (4.5-11.0)
[2016-09-12 08:51] LABS: ALB/GLOB RATIO 0.6 (1.1-1.8); ALBUMIN 3.3 g/dL (3.0-4.8); ALT/SGPT 22 U/L (7-56); AST/SGOT 26 U/L (15-39); BLOOD UREA NITROGEN 16 mg/dL (7-21); CALCIUM 8.4 mg/dL (8.4-10.5); GFR AFRICAN-AMERICAN > 60; GFR NON-AFRICAN AMERICAN > 60
[2016-09-12] MEDS: Lidocaine 5% Patch TD SCH (15:35)
--- NOTE | 2016-09-12 19:47 | CP.PCM.PN ---
Subjective - Date & Time of Evaluation Date of Evaluation: 09/12/16 Time of Evaluation: 17:00 - Subjective Subjective: Patient endorses feeling a little dizzy earlier today. Otherwise no acute complaints. Staff notes that patient received pain medications and had not been eating much today. 12 ROS otherwise negative Objective - Vital Signs/Intake and Output Vital Signs (last 24 hours): Temp Pulse Resp BP Pulse Ox 98.2 F 82 12 113/63 98 09/12/16 08:00 09/12/16 08:00 09/12/16 08:00 09/12/16 08:00 09/12/16 06:00 - Medications Medications: Current Medications Danazol (Danazol) 100 mg PO BID ZAC PRN Reason: Protocol Last Admin: 09/12/16 17:33 Dose: 100 mg Famotidine (Pepcid) 40 mg PO DAILY ZAC PRN Reason: Protocol Last Admin: 09/12/16 09:27 Dose: 40 mg Gabapentin (Neurontin) 400 mg PO TID ZAC PRN Reason: Protocol Last Admin: 09/12/16 17:33 Dose: 400 mg Hydromorphone HCl (Dilaudid) 1 mg IVP Q6 PRN PRN Reason: pain moderate (4-7) Last Admin: 09/12/16 12:45 Dose: 1 mg Lidocaine (Lidoderm) 1 ea TD DAILY ZAC PRN Reason: Protocol Last Admin: 09/12/16 15:35 Dose: 1 ea Ondansetron HCl (Zofran Inj) 4 mg IVP Q6H PRN; Protocol PRN Reason: Nausea/Vomiting Last Admin: 09/12/16 14:23 Dose: 4 mg Tramadol HCl (Ultram) 50 mg PO TID ZAC PRN Reason: Protocol Last Admin: 09/12/16 14:13 Dose: 50 mg - Labs Labs: 09/12/16 08:19 09/12/16 08:19 - Constitutional Appears: Well - Eye Exam Eye Exam: EOMI, Normal appearance, PERRL - Respiratory Exam Respiratory Exam: Clear to Ausculation Bilateral, NORMAL BREATHING PATTERN - Cardiovascular Exam Cardiovascular Exam: REGULAR RHYTHM, +S1, +S2. absent: Murmur - Extremities Exam Extremities Exam: Full ROM, Normal Capillary Refill, Normal Inspection. absent : Joint Swelling, Pedal Edema - Skin Skin Exam: Dry, Intact, Normal Color, Warm Assessment and Plan - Assessment and Plan (Free Text) Assessment: Ms. Rendon amy 71 y/o female with pmhx significant for vetebral compression fracture of T10 s/p kyphoplasty and metastarsel fracture admitted with ITP treated with IVIG x3 days and started on danzole 100mg BID with subsequent improvemetn in platelets. Patient would ideally benefit from a bone marrow biopsy to rule primary bone marrow process which is less likely. If counts drop again would recommned cessation of danazole and initaiting pulse dex 40mg qd x4 days. Will plan on restarting gammaglobulins tomorrow for 2 additional days-- 5 days total per original hematology recommendations. Will attempt to gave 30g of IVIG in outpatient clinic if possible Nura Ni MD Oncology Service
[2016-09-13] MEDS: HYDROmorphone 1 mg/ml ISec IVP PRN ×2 (08:32→22:20)
[2016-09-13] MEDS: Lidocaine 5% Patch TD SCH (10:28)
--- NOTE | 2016-09-14 00:50 | HP ---
CHIEF COMPLAINT: Intractable back pain. HISTORY OF PRESENT ILLNESS: The patient is a 71-year-old female, came in to my office with intractable back pain. We did x-ray that showed fracture of the back. I sent her to the emergency room. According to her, pain is more than 10 and is worse with movement. According to the patient, she has started back pain 6 months ago after doing bone marrow biopsy. The patient was using Percocet and tramadol as outpatient, but not helping, then we admitted the patient at [facility] on 09/07/2016, was seen by Dr. Walker De La Vega, did the kyphoplasty for the second time, seen by Dr. Ni for thrombocytopenia, status post platelet transfusion. The patient improved, transferred to TCU on 09/12/2016 for further treatment and physical therapy. I am dictating history and physical for 09/12/2016. The patient was seen and examined on 09/12/2016. PAST MEDICAL HISTORY: History of multiple vertebral fractures, thrombocytopenia, history of kidney stones, history of bone marrow biopsy 6 months ago, surgery of T10 compression fracture, kyphoplasty in July 2016. ALLERGIES: The patient is not allergic to any medication. HOME MEDICATIONS: Reviewed by me. REVIEW OF SYSTEMS: The patient was seen and examined on the bedside in the telemetry on 09/12/2016, still having pain, complaining about constipation. No nausea, vomiting or diarrhea. No hematuria, hematochezia. No shortness of breath. PHYSICAL EXAMINATION VITAL SIGNS: Temperature 98.5, pulse 85, blood pressure 110/66, respiratory rate 16. HEENT: Head is normocephalic and atraumatic. Eyes PERRLA. EOMs intact. Conjunctivae clear. Nose patent. NECK: Supple. No carotid bruits or thyromegaly. CHEST: Bilaterally symmetrical. HEART: S1 and S2 positive. LUNGS: Clear to auscultation. ABDOMEN: Soft. Bowel sounds are positive. No organomegaly. EXTREMITIES: No edema, no cyanosis. NEUROLOGIC: The patient is awake and alert. Moving all extremities. No focal deficit. MEDICATIONS: Danazol, Dilaudid, Lidoderm, Neurontin, Pepcid, tramadol, Zofran. LABORATORY DATA: White blood cell 9.3, hemoglobin 11.4, hematocrit 35.4, platelets 397. Sodium 136, potassium 4.3, BUN 15, creatinine 0.6. ASSESSMENT AND PLAN: The patient is a 71-year-old lady with anemia, thrombocytopenia, multiple vertebral fracture, history of compression fracture of T10 status post kyphoplasty and now metatarsal fracture, admitted with ITP, treated with IVIG x3 days, started on Danazol 100 mg b.i.d. with subsequent improvement in platelets by Dr. Ni, the patient's office cleaner. As per Dr. Ni, the patient need bone marrow biopsy. If the count drops again, we would recommend cessation of Danazol and initiating pulse dexamethasone 40 mg daily for 4 days. We will plan on restarting gamma globulin for 2 days according to office cleaner, intractable back pain, constipation. Bone density done showed left hip osteoporosis, left forearm osteoporosis, is at high risk for fracture, getting physical therapy, pain medication, getting treatment for constipation, GI and DVT prophylaxis, repeat labs. Appreciate Dr. Ni's input. We will follow up. Corazon Hernández MD
[2016-09-14 07:34] LABS: BASO # 0.04 K/mm3 (0.0-2.0); BASO % 0.4 % (0.0-3.0); EOS # 0.1 (0.0-0.7); EOS % 0.6 % (1.5-5.0); GRAN % 78.5 % (50.0-68.0); HEMOGLOBIN 10.4 gm/dL (12.0-16.0); LYMPH # 1.4 (1.2-3.4); LYMPH % 14.8 % (22.0-35.0); MEAN CELL VOLUME 85.1 fL (80.0-105.0); MEAN CORPUSCULAR HEMOGLOBIN 28.1 pg (25.0-35.0); MEAN PLATELET VOLUME 8.7 fl (7.0-11.0); MONO # 0.6 (0.1-0.6); MONO % 5.7 % (1.0-6.0); PLATELET COUNT 541 10^3/uL (120.0-450.0); RED CELL DISTRIBUTION WIDTH 13.4 % (11.5-14.5); WHITE BLOOD COUNT 9.6 10^3/ul (4.5-11.0)
--- NOTE | 2016-09-14 07:55 | CP.PCM.PN ---
Subjective - Date & Time of Evaluation Date of Evaluation: 09/14/16 Time of Evaluation: 07:53 - Subjective Subjective: PGY-[address] Ni Pt in bed talking on phone. Pain improves. No acute event overnight Objective - Vital Signs/Intake and Output Vital Signs (last 24 hours): Temp Pulse Resp BP Pulse Ox 98.4 F 94 H 18 91/53 L 96 09/13/16 15:54 09/13/16 15:54 09/13/16 15:54 09/13/16 15:54 09/13/16 15:54 - Medications Medications: Current Medications Danazol (Danazol) 100 mg PO BID ZAC PRN Reason: Protocol Last Admin: 09/13/16 17:52 Dose: 100 mg Famotidine (Pepcid) 40 mg PO DAILY ZAC PRN Reason: Protocol Last Admin: 09/13/16 11:45 Dose: 40 mg Gabapentin (Neurontin) 400 mg PO TID ZAC PRN Reason: Protocol Last Admin: 09/13/16 17:52 Dose: 400 mg Hydromorphone HCl (Dilaudid) 1 mg IVP Q6 PRN PRN Reason: pain moderate (4-7) Last Admin: 09/13/16 22:20 Dose: 1 mg Lactulose (Enulose) 20 gm PO DAILY ZAC PRN Reason: Protocol Lidocaine (Lidoderm) 1 ea TD DAILY ZAC PRN Reason: Protocol Last Admin: 09/13/16 10:28 Dose: 1 ea Ondansetron HCl (Zofran Inj) 4 mg IVP Q6H PRN; Protocol PRN Reason: Nausea/Vomiting Last Admin: 09/13/16 08:34 Dose: 4 mg Tramadol HCl (Ultram) 50 mg PO TID ZCA PRN Reason: Protocol Last Admin: 09/13/16 17:53 Dose: 50 mg - Labs Labs: 09/14/16 07:00 09/12/16 08:19 - Constitutional Appears: No Acute Distress - Head Exam Head Exam: ATRAUMATIC, NORMAL INSPECTION, NORMOCEPHALIC - Eye Exam Eye Exam: EOMI, Normal appearance, PERRL. absent: Scleral icterus Pupil Exam: NORMAL ACCOMODATION - ENT Exam ENT Exam: Mucous Membranes Moist - Respiratory Exam Respiratory Exam: Clear to Ausculation Bilateral. absent: Rales, Rhonchi, Wheezes - Cardiovascular Exam Cardiovascular Exam: REGULAR RHYTHM, +S1, +S2 - GI/Abdominal Exam GI & Abdominal Exam: Soft. absent: Distended, Firm, Guarding, Rigid, Tenderness - Extremities Exam Extremities Exam: Normal Capillary Refill. absent: Calf Tenderness, Pedal Edema - Neurological Exam Neurological Exam: Alert, Awake - Psychiatric Exam Psychiatric exam: Normal Affect, Normal Mood - Skin Skin Exam: Dry, Warm Assessment and Plan - Assessment and Plan (Free Text) Plan: 71 F with Hx idiopathic thrombocytopenia purpura, recent khyphoplasty T10 due to compression fracture, admitted for new T9 compression fracture and intractable back pain. MRI of Thoracic spine has new minimal compression fracture inferior endplate of T9 adjacent to recent kyphoplasty. Minimal marrow edema within T8 vertebral body with no comrpession deformity. kyphoplasty on . Pt has deconditioning and requires TCU for rehab. Hx ITP - improving - s/p IVIG x total of 5 days - Watch progression to aplastic anemia - Danazol 100 BID - If plt counts drop again would recommned cessation of danazole and initaiting pulse dex 40mg qd x4 days. - Will plan on restarting gammaglobulins tomorrow for 2 additional days-- 5 days total per original hematology recommendations. - Will attempt to gave 30g of IVIG in outpatient clinic if possible - Today, plt is 541, likely reactive - Pt could not tolerate steroid in the past. In addition, pt had compression fracture Compression fracture T9, T10 s/p kyphoplasty x 2 - Lidocaine TD daily, Gabapentin 400 TID, ultram 50 TID, dilaudud 1q6 PRN, lactulose 20 daily Osteoporosis - Ca nl; Vit D 19.7 (low), PTH 44 (nl), Mg (1.9), Phos (3) - Dexa: Lumbar spine T-4, L hip T-2.7, L forearm T-5 - Reclast every year with Ca 1200 mg/d and vit-D 50K weekly supplement Nomocytic anemia - TIBC low, LFT nl; Fe and % sat nl. - B12, folate normal - Continue observe. TSH low 0.24 - Re-check TSH, FT4, FT3; - if high, consider thyroid scan outpatient Prophylaxis - Pepcid 40, SCD Discharge planning - follow up with Dr. Ni in 1-2 week for IVIG - Discharge on 09/19 (Tuesday) - Reclast every year s/r/d/w Dr. Ni
[2016-09-14 08:05] LABS: FREE T4 1.36 ng/dL (0.78-2.19)
[2016-09-14] MEDS ORDERED: ZOLEDRONIC ACID 5 MG/100 ML IV ONE (09:50)
[2016-09-14] MEDS ORDERED: Ergocalciferol 50,000 Intl Units Cap PO SCH (10:00)
[2016-09-14] MEDS ORDERED: Immune Globulin 50 MG/ML (OCTAGAM 5%) 10 GM/200 ML IV SCH (10:30)
[2016-09-14] MEDS: Lidocaine 5% Patch TD SCH (11:30)
--- NOTE | 2016-09-14 15:08 | HP ---
DATE OF SERVICE: The patient was seen and examined on 09/13/2016. CHIEF COMPLAINT: Back pain. HISTORY OF PRESENT ILLNESS: Ms. Cori Alonso is a 71-year-old, my private patient, came in to [facility] with excruciating back pain in the thoracic region. Actually, the patient was seen a couple of days ago in my office for back pain. I sent her for x-rays. X-ray showed fracture. Then, I spoke to Dr. Walker De La Vega and we admitted the patient in ER. MRI done showed fracture of the vertebrae. Dr. Walker De La Vega did kyphoplasty for the compression fracture of inferior endplate of T9 adjacent to recent kyphoplasty which was done a couple of weeks ago. Minimal marrow edema within T8 vertebra with no compression deformity. The patient started feeling better. We took care of the patient on the medical floor, then discharged the patient to TCU for continuity of care and for physical therapy. PAST MEDICAL HISTORY: As above. HABITS: Never smoking. No drugs. No ethanol. FAMILY HISTORY: Father and mother noncontributory. ALLERGIES: THE PATIENT IS NOT ALLERGIC TO ANY MEDICATION. HOME MEDICATIONS: Reviewed by me. REVIEW OF SYSTEMS: The patient was seen and examined on the bedside on 09/13/2016, looking comfortable. No nausea, vomiting, or diarrhea. No hematuria or hematochezia. No headache or dizziness. Just complaining about constipation and the back pain is slowly getting better. PHYSICAL EXAMINATION: VITAL SIGNS: Temperature 98.4, pulse 94, blood pressure 91/53, respiratory rate 18. HEENT: Head, normocephalic, atraumatic. Eyes, PERRLA. Extraocular muscles intact. Conjunctivae clear. Nose patent. Mucous membrane moist. NECK: Supple. No carotid bruit or thyromegaly. CHEST: Bilaterally clear. HEART: S1 and S2 positive. LUNGS: Clear to auscultation. ABDOMEN: Soft. Bowel sounds present. No organomegaly. EXTREMITIES: No edema. No cyanosis. NEUROLOGIC: The patient is awake and alert. Moving all 4 extremities. No focal deficit. MEDICATIONS: Danazol, Dilaudid, lactulose, Lidoderm, Neurontin, Pepcid, tramadol, Zofran. LABORATORY DATA: White blood cell 9.3, hemoglobin 11.4, hematocrit 35.4, platelets 397. Sodium 136, potassium 4.3, BUN 16, creatinine 0.6, glucose 93. ASSESSMENT AND PLAN: Ms. Cori Alonso is a 71-year-old lady with anemia, history of thrombocytopenia, constipation, osteoporosis, history of multiple fractures in the back, history of kyphoplasty a couple of weeks ago for T10 thoracic vertebral compression fracture, got IVIG by Dr. Ni, status post marrow biopsy. The patient got gamma globulins. The patient got lactulose for constipation, getting physical therapy, pain management. Discussion done with nursing staff, GI and DVT prophylaxis, repeat labs. We will follow up. Corazon Hernández MD
--- NOTE | 2016-09-14 21:51 | CP.PCM.PN ---
Subjective - Date & Time of Evaluation Date of Evaluation: 09/14/16 Time of Evaluation: 05:00 - Subjective Subjective: Pt in bed talking on phone. Pain improves. No acute event overnight. still had constipation . lactulose is not working ,. ordered ducolex supp.. getting pt , and pain management Objective - Vital Signs/Intake and Output Vital Signs (last 24 hours): Temp Pulse Resp BP Pulse Ox 97.6 F 94 H 18 103/67 96 09/14/16 16:00 09/14/16 16:00 09/14/16 16:00 09/14/16 16:00 09/14/16 16:00 - Medications Medications: Current Medications Calcium Carbonate (Caltrate) 600 mg PO BID [facility] Last Admin: 09/14/16 17:47 Dose: 600 mg Danazol (Danazol) 100 mg PO BID ZAC PRN Reason: Protocol Last Admin: 09/14/16 17:48 Dose: 100 mg Ergocalciferol (Drisdol 50,000 Intl Units Cap) 1 cap PO Q7D [facility] Last Admin: 09/14/16 11:33 Dose: 1 cap Famotidine (Pepcid) 40 mg PO 1700 ZAC PRN Reason: Protocol Last Admin: 09/14/16 17:47 Dose: 40 mg Gabapentin (Neurontin) 400 mg PO TID ZAC PRN Reason: Protocol Last Admin: 09/14/16 17:46 Dose: 400 mg Hydromorphone HCl (Dilaudid) 1 mg IVP Q6 PRN PRN Reason: pain moderate (4-7) Last Admin: 09/13/16 22:20 Dose: 1 mg Immune Globulin (Octagam 5%) 30 gm IV DAILY ZAC Stop: 09/16/16 10:01 Lactulose (Enulose) 20 gm PO DAILY ZAC PRN Reason: Protocol Last Admin: 09/14/16 11:34 Dose: 20 gm Lidocaine (Lidoderm) 1 ea TD DAILY ZAC PRN Reason: Protocol Last Admin: 09/14/16 11:30 Dose: 1 ea Ondansetron HCl (Zofran Inj) 4 mg IVP Q6H PRN; Protocol PRN Reason: Nausea/Vomiting Last Admin: 09/14/16 17:49 Dose: 4 mg Tramadol HCl (Ultram) 50 mg PO TID ZAC PRN Reason: Protocol Last Admin: 09/14/16 17:45 Dose: 50 mg - Labs Labs: 09/14/16 07:00 09/12/16 08:19 - Constitutional Appears: Well - Head Exam Head Exam: ATRAUMATIC, NORMAL INSPECTION, NORMOCEPHALIC - Eye Exam Eye Exam: EOMI, Normal appearance, PERRL Pupil Exam: NORMAL ACCOMODATION, PERRL - ENT Exam ENT Exam: Mucous Membranes Moist, Normal Exam - Neck Exam Neck Exam: Full ROM, Normal Inspection. absent: Lymphadenopathy - Respiratory Exam Respiratory Exam: Clear to Ausculation Bilateral, NORMAL BREATHING PATTERN - Cardiovascular Exam Cardiovascular Exam: REGULAR RHYTHM, +S1, +S2. absent: Murmur - GI/Abdominal Exam GI & Abdominal Exam: Soft, Normal Bowel Sounds. absent: Tenderness - Neurological Exam Neurological Exam: Alert, Awake, CN II-XII Intact, Normal Gait, Oriented x3 - Psychiatric Exam Psychiatric exam: Normal Affect, Normal Mood - Skin Skin Exam: Dry, Intact, Normal Color, Warm Assessment and Plan - Assessment and Plan (Free Text) Assessment: Extremities Exam: Normal Capillary Refill. absent: Calf Tenderness, Pedal Edema - Neurological Exam Neurological Exam: Alert, Awake - Psychiatric Exam Psychiatric exam: Normal Affect, Normal Mood - Skin A/P 71 F with Hx idiopathic thrombocytopenia purpura, recent khyphoplasty T10 due to compression fracture, admitted for new T9 compression fracture and intractable back pain. MRI of Thoracic spine has new minimal compression fracture inferior endplate of T9 adjacent to recent kyphoplasty. Minimal marrow edema within T8 vertebral body with no comrpession deformity. kyphoplasty on . Pt has deconditioning and requires TCU for rehab. Hx ITP - improving - s/p IVIG x total of 5 days - Watch progression to aplastic anemia - Danazol 100 BID - If plt counts drop again would recommned cessation of danazole and initaiting pulse dex 40mg qd x4 days. - Will plan on restarting gammaglobulins tomorrow for 2 additional days-- 5 days total per original hematology recommendations. - Will attempt to gave 30g of IVIG in outpatient clinic if possible - Today, plt is 541, likely reactive - Pt could not tolerate steroid in the past. In addition, pt had compression fracture Compression fracture T9, T10 s/p kyphoplasty x 2 - Lidocaine TD daily, Gabapentin 400 TID, ultram 50 TID, dilaudud 1q6 PRN, lactulose 20 daily Osteoporosis - Ca nl; Vit D 19.7 (low), PTH 44 (nl), Mg (1.9), Phos (3) - Dexa: Lumbar spine T-4, L hip T-2.7, L forearm T-5 - Reclast every year with Ca 1200 mg/d and vit-D 50K weekly supplement Nomocytic anemia - TIBC low, LFT nl; Fe and % sat nl. - B12, folate normal - Continue observe. TSH low 0.24 - Re-check TSH, FT4, FT3; - if high, consider thyroid scan outpatient Prophylaxis - Pepcid 40, SCD - Reclast every year, dulclex supp, for constipation .gi dvt pro.
[2016-09-15] MEDS: HYDROmorphone 1 mg/ml ISec IVP PRN ×2 (04:05→16:10)
[2016-09-15 07:14] LABS: BASO # 0.05 K/mm3 (0.0-2.0); BASO % 0.4 % (0.0-3.0); EOS # 0.2 (0.0-0.7); EOS % 1.2 % (1.5-5.0); GRAN # 10.35 (1.4-6.5); GRAN % 80.1 % (50.0-68.0); HEMOGLOBIN 10.1 gm/dL (12.0-16.0); LYMPH # 1.5 (1.2-3.4); LYMPH % 11.6 % (22.0-35.0); MEAN CELL VOLUME 86.2 fL (80.0-105.0); MEAN CORPUSCULAR HEMOGLOBIN 28.5 pg (25.0-35.0); MEAN PLATELET VOLUME 8.6 fl (7.0-11.0); MONO # 0.9 (0.1-0.6); MONO % 6.7 % (1.0-6.0); PLATELET COUNT 534 10^3/uL (120.0-450.0); RBC 3.55 10^6/uL (3.5-6.1); WHITE BLOOD COUNT 12.9 10^3/ul (4.5-11.0)
[2016-09-15] MEDS ORDERED: Immune Globulin 50 MG/ML (OCTAGAM 5%) 10 GM/200 ML IV SCH (10:00)
[2016-09-15] MEDS: Lidocaine 5% Patch TD SCH (10:31)
[2016-09-16] MEDS: HYDROmorphone 1 mg/ml ISec IVP PRN ×2 (04:46→16:04)
--- NOTE | 2016-09-16 07:29 | CP.PCM.PN ---
Subjective - Date & Time of Evaluation Date of Evaluation: 09/16/16 Time of Evaluation: 07:27 - Subjective Subjective: PGY-[address] Ni Pt will received ivig 07/02 today. Tolerate PT well. No BM x 4 days No passing gas/flatus hypoactive bowel sound on PE Objective - Vital Signs/Intake and Output Vital Signs (last 24 hours): Temp Pulse Resp BP Pulse Ox 98.0 F 100 H 18 117/75 94 L 09/15/16 17:49 09/15/16 17:49 09/15/16 17:49 09/15/16 17:49 09/15/16 17:49 - Medications Medications: Current Medications Calcium Carbonate (Caltrate) 600 mg PO BID ZAC Last Admin: 09/15/16 17:47 Dose: 600 mg Danazol (Danazol) 100 mg PO BID ZAC PRN Reason: Protocol Last Admin: 09/15/16 17:47 Dose: 100 mg Ergocalciferol (Drisdol 50,000 Intl Units Cap) 1 cap PO Q7D ZAC Last Admin: 09/14/16 11:33 Dose: 1 cap Famotidine (Pepcid) 40 mg PO 1700 ZAC PRN Reason: Protocol Last Admin: 09/15/16 17:47 Dose: 40 mg Gabapentin (Neurontin) 400 mg PO TID ZAC PRN Reason: Protocol Last Admin: 09/15/16 17:46 Dose: 400 mg Hydromorphone HCl (Dilaudid) 1 mg IVP Q6 PRN PRN Reason: pain moderate (4-7) Last Admin: 09/16/16 04:46 Dose: 1 mg Lactulose (Enulose) 20 gm PO DAILY ZAC PRN Reason: Protocol Last Admin: 09/15/16 10:32 Dose: 20 gm Lidocaine (Lidoderm) 1 ea TD DAILY ZAC PRN Reason: Protocol Last Admin: 09/15/16 10:31 Dose: 1 ea Ondansetron HCl (Zofran Inj) 4 mg IVP Q6H PRN; Protocol PRN Reason: Nausea/Vomiting Last Admin: 09/14/16 17:49 Dose: 4 mg Tramadol HCl (Ultram) 50 mg PO TID ZAC PRN Reason: Protocol Last Admin: 09/15/16 17:46 Dose: 50 mg - Labs Labs: 09/15/16 06:30 09/12/16 08:19 - Constitutional Appears: No Acute Distress - Head Exam Head Exam: ATRAUMATIC, NORMAL INSPECTION, NORMOCEPHALIC - Eye Exam Eye Exam: EOMI, Normal appearance, PERRL. absent: Scleral icterus Pupil Exam: NORMAL ACCOMODATION - ENT Exam ENT Exam: Mucous Membranes Moist - Respiratory Exam Respiratory Exam: Clear to Ausculation Bilateral. absent: Rales, Rhonchi, Wheezes - Cardiovascular Exam Cardiovascular Exam: REGULAR RHYTHM, +S1, +S2 - GI/Abdominal Exam GI & Abdominal Exam: Distended, Soft, Hypoactive Bowel Sounds. absent: Guarding , Rigid, Tenderness - Extremities Exam Extremities Exam: Normal Capillary Refill. absent: Calf Tenderness, Pedal Edema - Neurological Exam Neurological Exam: Alert, Awake, Oriented x3 - Psychiatric Exam Psychiatric exam: Normal Affect, Normal Mood - Skin Skin Exam: Dry, Warm Assessment and Plan - Assessment and Plan (Free Text) Plan: 71 F with Hx idiopathic thrombocytopenia purpura, recent khyphoplasty T10 due to compression fracture, admitted for new T9 compression fracture and intractable back pain. MRI of Thoracic spine has new minimal compression fracture inferior endplate of T9 adjacent to recent kyphoplasty. Minimal marrow edema within T8 vertebral body with no comrpession deformity. kyphoplasty on . Pt has deconditioning and requires TCU for rehab. Pt is receiving ivig 5/5 today Constipation - flat plate - npo for now pending flat plate. IVF - r/o ileus or bowel obstruction Hx ITP - improving - s/p IVIG x total of 5 days - Watch progression to aplastic anemia - Danazol 100 BID - If plt counts drop again would recommned cessation of danazole and initaiting pulse dex 40mg qd x4 days. - Will plan on restarting gammaglobulins tomorrow for 2 additional days-- 5 days total per original hematology recommendations. - Will attempt to gave 30g of IVIG in outpatient clinic if possible - Today, plt is 541, likely reactive - Pt could not tolerate steroid in the past. In addition, pt had compression fracture Compression fracture T9, T10 s/p kyphoplasty x 2 - Lidocaine TD daily, Gabapentin 400 TID, ultram 50 TID, dilaudud 1q6 PRN, lactulose 20 daily Osteoporosis - Ca nl; Vit D 19.7 (low), PTH 44 (nl), Mg (1.9), Phos (3) - Dexa: Lumbar spine T-4, L hip T-2.7, L forearm T-5 - Reclast every year with Ca 1200 mg/d and vit-D 50K weekly supplement Nomocytic anemia - Asymptpmatic - TIBC low, LFT nl; Fe and % sat nl. - B12, folate normal - Continue observe. Prophylaxis - Pepcid 40, SCD Discharge planning - follow up with Dr. Ni in 1-2 week for IVIG - Discharge on 09/19 (Tuesday) - Reclast every year s/r/d/w Dr. Ni
[2016-09-16 07:30] LABS: BASO # 0.01 K/mm3 (0.0-2.0); BASO % 0.2 % (0.0-3.0); GRAN # 5.28 (1.4-6.5); GRAN % 87.7 % (50.0-68.0); HEMOGLOBIN 10.1 gm/dL (12.0-16.0); LYMPH # 0.5 (1.2-3.4); LYMPH % 8.6 % (22.0-35.0); MEAN CELL VOLUME 86.9 fL (80.0-105.0); MEAN CORPUSCULAR HEMOGLOBIN 28.7 pg (25.0-35.0); MEAN PLATELET VOLUME 8.9 fl (7.0-11.0); MONO # 0.2 (0.1-0.6); MONO % 3.5 % (1.0-6.0); PLATELET COUNT 592 10^3/uL (120.0-450.0); RBC 3.52 10^6/uL (3.5-6.1); RED CELL DISTRIBUTION WIDTH 14.5 % (11.5-14.5)
--- NOTE | 2016-09-16 09:24 | CP.PCM.PN ---
Subjective - Date & Time of Evaluation Date of Evaluation: 09/16/19 Time of Evaluation: 07:00 - Subjective Subjective: pt is seen and examined on the bed side . looking comfortable . pain is getting better ,getting pt , ot , no n.v . no chest pain . shah . dizzyness Objective - Vital Signs/Intake and Output Vital Signs (last 24 hours): Temp Pulse Resp BP Pulse Ox 98.0 F 100 H 18 117/75 94 L 09/15/16 17:49 09/15/16 17:49 09/15/16 17:49 09/15/16 17:49 09/15/16 17:49 - Medications Medications: Current Medications Calcium Carbonate (Caltrate) 600 mg PO BID [facility] Last Admin: 09/15/16 17:47 Dose: 600 mg Danazol (Danazol) 100 mg PO BID [facility] PRN Reason: Protocol Last Admin: 09/15/16 17:47 Dose: 100 mg Ergocalciferol (Drisdol 50,000 Intl Units Cap) 1 cap PO Q7D [facility] Last Admin: 09/14/16 11:33 Dose: 1 cap Famotidine (Pepcid) 40 mg PO 1700 [facility] PRN Reason: Protocol Last Admin: 09/15/16 17:47 Dose: 40 mg Gabapentin (Neurontin) 400 mg PO TID [facility] PRN Reason: Protocol Last Admin: 09/15/16 17:46 Dose: 400 mg Hydromorphone HCl (Dilaudid) 1 mg IVP Q6 PRN PRN Reason: pain moderate (4-7) Last Admin: 09/16/16 04:46 Dose: 1 mg Lactulose (Enulose) 20 gm PO DAILY [facility] PRN Reason: Protocol Last Admin: 09/15/16 10:32 Dose: 20 gm Lidocaine (Lidoderm) 1 ea TD DAILY [facility] PRN Reason: Protocol Last Admin: 09/15/16 10:31 Dose: 1 ea Ondansetron HCl (Zofran Inj) 4 mg IVP Q6H PRN; Protocol PRN Reason: Nausea/Vomiting Last Admin: 09/14/16 17:49 Dose: 4 mg Tramadol HCl (Ultram) 50 mg PO TID ZAC PRN Reason: Protocol Last Admin: 09/15/16 17:46 Dose: 50 mg - Labs Labs: 09/16/16 06:25 09/12/16 08:19 - Constitutional Appears: Well - Head Exam Head Exam: ATRAUMATIC, NORMAL INSPECTION, NORMOCEPHALIC - Eye Exam Eye Exam: EOMI, Normal appearance, PERRL - ENT Exam ENT Exam: Mucous Membranes Moist, Normal Exam - Neck Exam Neck Exam: Full ROM, Normal Inspection. absent: Lymphadenopathy - Respiratory Exam Respiratory Exam: Clear to Ausculation Bilateral, NORMAL BREATHING PATTERN - Cardiovascular Exam Cardiovascular Exam: REGULAR RHYTHM, +S1, +S2. absent: Murmur - GI/Abdominal Exam GI & Abdominal Exam: Soft, Normal Bowel Sounds. absent: Tenderness - Back Exam Back Exam: NORMAL INSPECTION - Neurological Exam Neurological Exam: Alert, Awake, CN II-XII Intact, Normal Gait, Oriented x3 - Psychiatric Exam Psychiatric exam: Normal Affect, Normal Mood - Skin Skin Exam: Dry, Intact, Normal Color, Warm Assessment and Plan (1) Acute constipation Status: Acute (2) Back pain Status: Acute (3) Back pain Status: Acute (4) Compression fracture Status: Acute (5) DJD (degenerative joint disease) Status: Acute (6) Status post kyphoplasty Status: Acute (7) Thrombocytopenia Status: Acute - Assessment and Plan (Free Text) Assessment: 71 F with Hx idiopathic thrombocytopenia purpura, recent khyphoplasty T10 due to compression fracture, admitted for new T9 compression fracture and intractable back pain. MRI of Thoracic spine has new minimal compression fracture inferior endplate of T9 adjacent to recent kyphoplasty. Minimal marrow edema within T8 vertebral body with no comrpession deformity. kyphoplasty on . Pt has deconditioning and requires TCU for rehab. Hx ITP - improving - s/p IVIG x total of 5 days - Watch progression to aplastic anemia - Danazol 100 BID - If plt counts drop again would recommned cessation of danazole and initaiting pulse dex 40mg qd x4 days. - Will plan on restarting gammaglobulins tomorrow for 2 additional days-- 5 days total per original hematology recommendations. - Will attempt to gave 30g of IVIG in outpatient clinic if possible - Today, plt is 541, likely reactive - Pt could not tolerate steroid in the past. In addition, pt had compression fracture Compression fracture T9, T10 s/p kyphoplasty x 2 - Lidocaine TD daily, Gabapentin 400 TID, ultram 50 TID, dilaudud 1q6 PRN, lactulose 20 daily Osteoporosis - Ca nl; Vit D 19.7 (low), PTH 44 (nl), Mg (1.9), Phos (3) - Dexa: Lumbar spine T-4, L hip T-2.7, L forearm T-5 - Reclast every year with Ca 1200 mg/d and vit-D 50K weekly supplement Nomocytic anemia - TIBC low, LFT nl; Fe and % sat nl. - B12, folate normal - Continue observe. TSH low 0.24 - Re-check TSH, FT4, FT3; - if high, consider thyroid scan outpatient Prophylaxis - Pepcid 40, SCD - Reclast every year, dulclex supp, for constipation .gi dvt pro.
[2016-09-16] MEDS: Lidocaine 5% Patch TD SCH ×2 (14:00→14:51)
--- NOTE | 2016-09-16 14:25 | CP.PCM.CON ---
<Pina Estevez - Last Filed: 09/16/16 14:24> History of Present Illness - History of Present Illness History of Present Illness: Seen and examined , chart reviewed. Reqiest for consult is for constipation. HPI: This is a 71 year old female with a history of ITP, was in infusion clinic getting immunoglobulins, she is in TCU for conditioning, she had recent kyphoplasty for compression fracture. This patient is reported to not have BM in 4 days, she denies passing gas or flatus. She is reproted to have a poor appetite, is on Dilaudid PRN. No N/V or abdominal pain. In review of chart her most recent ct scan A&P was done 06/2016 and she had moderate amount of stool throughtout the colon. She denies constipation, she used to take laxative but her BM were better and now is not taking anything at home. She denies having EGD or colon. Patient is mainly nauruan speaking, bowstring maker at bedside. PMH: ITP, compression fracture, H pylori PSH: recent kyphoplasty, denies abdomianl or cardiac procedure Allergies: NKDA MEDS: reviewed as per MAR Social Hx: denies smoking, drug, etoh ROS: systems reviewed with positive findings, see HPI Past Patient History - Infectious Disease Hx of Infectious Diseases: None - Tetanus Immunizations Tetanus Immunization: Unknown - Past Social History Smoking Status: Never Smoked - CARDIAC Hx Pacemaker: No - NEUROLOGICAL Hx Paralysis: No - RENAL Hx Kidney Stones: Yes - HEMATOLOGICAL/ONCOLOGICAL Hx Blood Disorders: Yes ("low platelets" as per pt) - INTEGUMENTARY Other/Comment: small 0.2cm round dry to l knee - MUSCULOSKELETAL/RHEUMATOLOGICAL Hx Falls: No - GENITOURINARY/GYNECOLOGICAL Hx Reproductive Disorders: No - PSYCHIATRIC Hx Emotional Abuse: No Hx Physical Abuse: No Hx Substance Use: No - SURGICAL HISTORY Other/Comment: 07/20/11 cysto left ureteroscopy, left retrograde pylegram - ANESTHESIA Hx Anesthesia Reactions: No Meds Allergies/Adverse Reactions: Allergies Allergy/AdvReac Type Severity Reaction Status Date / Time No Known Allergies Allergy Verified 09/11/16 13:32 - Medications Medications: Current Medications Calcium Carbonate (Caltrate) 600 mg PO BID ZAC Last Admin: 09/15/16 17:47 Dose: 600 mg Danazol (Danazol) 100 mg PO BID ZAC PRN Reason: Protocol Last Admin: 09/15/16 17:47 Dose: 100 mg Ergocalciferol (Drisdol 50,000 Intl Units Cap) 1 cap PO Q7D [facility] Last Admin: 09/14/16 11:33 Dose: 1 cap Famotidine (Pepcid) 40 mg PO 1700 [facility]AC PRN Reason: Protocol Last Admin: 09/15/16 17:47 Dose: 40 mg Gabapentin (Neurontin) 400 mg PO TID ZAC PRN Reason: Protocol Last Admin: 09/15/16 17:46 Dose: 400 mg Hydromorphone HCl (Dilaudid) 1 mg IVP Q6 PRN PRN Reason: pain moderate (4-7) Last Admin: 09/16/16 04:46 Dose: 1 mg Sodium Chloride (Sodium Chloride 0.45%) 1,000 mls @ 50 mls/hr IV .Q20H [facility] Lidocaine (Lidoderm) 1 ea TD DAILY ZAC PRN Reason: Protocol Last Admin: 09/15/16 10:31 Dose: 1 ea Ondansetron HCl (Zofran Inj) 4 mg IVP Q6H PRN; Protocol PRN Reason: Nausea/Vomiting Last Admin: 09/14/16 17:49 Dose: 4 mg Tramadol HCl (Ultram) 50 mg PO TID [facility] PRN Reason: Protocol Last Admin: 09/15/16 17:46 Dose: 50 mg Physical Exam - Constitutional Appears: No Acute Distress - Eye Exam Eye Exam: Normal appearance. absent: Scleral icterus - ENT Exam ENT Exam: Mucous Membranes Moist - Neck Exam Neck exam: Positive for: Normal Inspection - Respiratory Exam Respiratory Exam: Decreased Breath Sounds, NORMAL BREATHING PATTERN. absent: Rhonchi, Wheezes, Respiratory Distress - Cardiovascular Exam Cardiovascular Exam: +S1, +S2 - GI/Abdominal Exam GI & Abdominal Exam: Distended, Hypoactive Bowel Sounds, Soft. absent: Guarding , Rebound, Tenderness - Extremities Exam Extremities exam: Positive for: pedal pulses present. Negative for: calf tenderness, pedal edema - Neurological Exam Neurological exam: Alert, Oriented x3 - Skin Skin Exam: Dry, Warm Results - Vital Signs Recent Vital Signs: Last Vital Signs Temp 98.5 F 09/16/16 10:00 Pulse 82 09/16/16 10:00 Resp 18 09/16/16 10:00 BP 118/68 09/16/16 10:00 Pulse Ox 95 07/20/17 10:00 - Labs Result Diagrams: 09/16/16 06:25 09/12/16 08:19 Labs: Laboratory Results - last 24 hr 09/16/16 06:25 WBC 6.0 D RBC 3.52 Hgb 10.1 L Hct 30.6 L MCV 86.9 MCH 28.7 MCHC 33.0 RDW 14.5 Plt Count 592 H MPV 8.9 Gran % 87.7 H Lymph % (Auto) 8.6 L [place] % (Auto) 3.5 Eos % (Auto) 0.0 L Baso % (Auto) 0.2 Gran # 5.28 Lymph # 0.5 L [place] # 0.2 Eos # 0.0 Baso # 0.01 Assessment & Plan - Assessment and Plan (Free Text) Assessment: ASSESSMENT: Compression Fracture s/p Kyphoplasty Constipation, r/o Bowel Obstruction/Ilieus/Narcotic Induced constipation ITP PLAN: pending abdominal xray NPO till after abdominal xray, if negative will place on clear liquid on IVF for hydration D/C Lactulose on Pepcid consider Miralax BID may consider Relistor after review of abdominal xray spoke to Giuliana BEE to call office with abd x ray results will make further recommendation after review of abdominal xray. Thank you for this consult and for allowing us to participate on your patient care. Seen and discussed with Dr. Spencer. <Cleopatra Spencer V - Last Filed: 09/17/16 23:39> Meds - Medications Medications: Current Medications Calcium Carbonate (Caltrate) 600 mg PO BID [facility] Last Admin: 09/17/16 17:26 Dose: 600 mg Danazol (Danazol) 100 mg PO BID [facility] PRN Reason: Protocol Last Admin: 09/17/16 17:21 Dose: 100 mg Ergocalciferol (Drisdol 50,000 Intl Units Cap) 1 cap PO Q7D [facility] Last Admin: 09/14/16 11:33 Dose: 1 cap Famotidine (Pepcid) 40 mg PO 1700 [facility] PRN Reason: Protocol Last Admin: 09/17/16 17:22 Dose: 40 mg Gabapentin (Neurontin) 400 mg PO TID ZAC PRN Reason: Protocol Last Admin: 09/17/16 15:02 Dose: 400 mg Hydromorphone HCl (Dilaudid) 1 mg IVP Q6 PRN PRN Reason: pain moderate (4-7) Last Admin: 09/17/16 07:48 Dose: 1 mg Sodium Chloride (Sodium Chloride 0.45%) 1,000 mls @ 50 mls/hr IV .Q20H [facility] Last Admin: 09/17/16 17:22 Dose: 50 mls/hr Lidocaine (Lidoderm) 1 ea TD DAILY [facility] PRN Reason: Protocol Last Admin: 09/17/16 15:05 Dose: Not Given Methylnaltrexone [place] (Relistor) 8 mg SC ONCE ONE Stop: 09/18/16 08:01 Ondansetron HCl (Zofran Inj) 4 mg IVP Q6H PRN; Protocol PRN Reason: Nausea/Vomiting Last Admin: 09/14/16 17:49 Dose: 4 mg Polyethylene Glycol (Miralax) 17 gm PO BID [facility] Last Admin: 09/17/16 17:22 Dose: Not Given Tramadol HCl (Ultram) 50 mg PO TID [facility] PRN Reason: Protocol Last Admin: 09/17/16 15:02 Dose: 50 mg Results - Vital Signs Recent Vital Signs: Last Vital Signs Temp 98.2 F 09/16/16 16:00 Pulse 102 H 09/16/16 16:00 Resp 16 09/16/16 16:00 BP 139/75 09/16/16 16:00 Pulse Ox 98 09/16/16 16:00 - Labs Result Diagrams: 09/17/16 06:15 09/12/16 08:19 Labs: Laboratory Results - last 24 hr 09/17/16 06:15 WBC 11.8 H D RBC 3.39 L Hgb 9.8 L Hct 29.0 L MCV 85.5 MCH 28.9 MCHC 33.8 RDW 14.7 H Plt Count 598 H MPV 8.7 Neutrophils % (Manual) 85 H Band Neutrophils % 7 H Lymphocytes % (Manual) 3 L Monocytes % (Manual) 5 Platelet Evaluation High Large Platelets Present Attending/Attestation - Attestation I have personally seen and examined this patient.: Yes I have fully participated in the care of the patient.: Yes I have reviewed all pertinent clinical information: Yes Notes (Text): t
[2016-09-16] MEDS: Sodium Chloride 0.45% 1,000 ML IV SCH (14:53)
--- NOTE | 2016-09-16 17:29 | RAD ---
HISTORY: suspected ileus r/o obstruction COMPARISON: No prior. FINDINGS: BOWEL: Normal. No obstruction. No free air. BONES: There has been vertebroplasty in the lower thoracic spine OTHER FINDINGS: None. IMPRESSION: No active disease.
[2016-09-16] MEDS: POLYETHYLENE GLYCOL 3350 17 GM/Dose PACKET PO SCH (20:05)
--- NOTE | 2016-09-17 01:05 | CP.PCM.PN ---
Subjective - Date & Time of Evaluation Date of Evaluation: 09/16/16 Time of Evaluation: 02:00 - Subjective Subjective: This is a 71 year old female with a history of ITP, was in infusion clinic getting immunoglobulins, she is in TCU for conditioning, she had recent kyphoplasty for compression fracture. This patient is reported to not have BM in 4 days, she denies passing gas or flatus. She is reproted to have a poor appetite, is on Dilaudid PRN. No N/V or abdominal pain. In review of chart her most recent ct scan A&P was done 06/2016 and she had moderate amount of stool throughtout the colon. She denies constipation, she used to take laxative but her BM were better and now is not taking anything at home. She denies having EGD or colon. Patient is mainly amharic speaking, building attendant at bedside Objective - Vital Signs/Intake and Output Vital Signs (last 24 hours): Temp Pulse Resp BP Pulse Ox 98.2 F 102 H 16 139/75 98 09/16/16 16:00 09/16/16 16:00 09/16/16 16:00 09/16/16 16:00 09/16/16 16:00 - Medications Medications: Current Medications Calcium Carbonate (Caltrate) 600 mg PO BID [facility] Last Admin: 09/16/16 14:51 Dose: Not Given Danazol (Danazol) 100 mg PO BID [facility] PRN Reason: Protocol Last Admin: 09/16/16 14:51 Dose: Not Given Ergocalciferol (Drisdol 50,000 Intl Units Cap) 1 cap PO Q7D [facility] Last Admin: 09/14/16 11:33 Dose: 1 cap Famotidine (Pepcid) 40 mg PO 1700 [facility] PRN Reason: Protocol Last Admin: 09/16/16 18:00 Dose: Not Given Gabapentin (Neurontin) 400 mg PO TID [facility] PRN Reason: Protocol Last Admin: 09/16/16 18:00 Dose: Not Given Hydromorphone HCl (Dilaudid) 1 mg IVP Q6 PRN PRN Reason: pain moderate (4-7) Last Admin: 09/16/16 16:04 Dose: 1 mg Sodium Chloride (Sodium Chloride 0.45%) 1,000 mls @ 50 mls/hr IV .Q20H [facility] Last Admin: 09/16/16 14:53 Dose: 50 mls/hr Lidocaine (Lidoderm) 1 ea TD DAILY [facility] PRN Reason: Protocol Last Admin: 09/16/16 14:00 Dose: 1 ea Methylnaltrexone [place] (Relistor) 8 mg SC ONCE ONE Stop: 09/17/16 08:01 Ondansetron HCl (Zofran Inj) 4 mg IVP Q6H PRN; Protocol PRN Reason: Nausea/Vomiting Last Admin: 09/14/16 17:49 Dose: 4 mg Polyethylene Glycol (Miralax) 17 gm PO BID [facility] Last Admin: 09/16/16 20:05 Dose: 17 gm Tramadol HCl (Ultram) 50 mg PO TID [facility] PRN Reason: Protocol Last Admin: 09/16/16 18:01 Dose: Not Given - Labs Labs: 09/16/16 06:25 09/12/16 08:19 - Constitutional Appears: Well - Head Exam Head Exam: ATRAUMATIC, NORMAL INSPECTION, NORMOCEPHALIC - Eye Exam Eye Exam: EOMI, Normal appearance, PERRL Pupil Exam: NORMAL ACCOMODATION, PERRL - ENT Exam ENT Exam: Mucous Membranes Moist, Normal Exam - Neck Exam Neck Exam: Full ROM, Normal Inspection. absent: Lymphadenopathy - Respiratory Exam Respiratory Exam: Clear to Ausculation Bilateral, NORMAL BREATHING PATTERN - Cardiovascular Exam Cardiovascular Exam: REGULAR RHYTHM, +S1, +S2. absent: Murmur - GI/Abdominal Exam GI & Abdominal Exam: Soft, Normal Bowel Sounds. absent: Tenderness - Rectal Exam Rectal Exam: NORMAL INSPECTION - Exam Exam: Circumcision, NORMAL INSPECTION External exam: NORMAL EXTERNAL EXAM Speculum exam: NORMAL SPECULUM EXAM Bimanual exam: NORMAL BIMANUAL EXAM - Extremities Exam Extremities Exam: Full ROM, Normal Capillary Refill, Normal Inspection. absent : Joint Swelling, Pedal Edema - Back Exam Back Exam: NORMAL INSPECTION - Neurological Exam Neurological Exam: Alert, Awake, CN II-XII Intact, Normal Gait, Oriented x3 - Psychiatric Exam Psychiatric exam: Normal Affect, Normal Mood - Skin Skin Exam: Dry, Intact, Normal Color, Warm Assessment and Plan (1) Acute constipation Status: Acute (2) Back pain Status: Acute (3) Back pain Status: Acute (4) Compression fracture Status: Acute (5) DJD (degenerative joint disease) Status: Acute (6) Status post kyphoplasty Status: Acute (7) Thrombocytopenia Status: Acute - Assessment and Plan (Free Text) Assessment: Assessment & Plan ASSESSMENT: Compression Fracture s/p Kyphoplasty Constipation, r/o Bowel Obstruction/Ilieus/Narcotic Induced constipation ITP PLAN: pending abdominal xray NPO till after abdominal xray, if negative will place on clear liquid on IVF for hydration D/C Lactulose on Pepcid consider Miralax BID may consider Relistor after review of abdominal xray got ivgg today , 00b ,pt
[2016-09-17] MEDS: Sodium Chloride 0.45% 1,000 ML IV SCH ×2 (04:00→17:22)
[2016-09-17 07:24] LABS: HEMOGLOBIN 9.8 gm/dL (12.0-16.0); MEAN CELL VOLUME 85.5 fL (80.0-105.0); MEAN CORPUSCULAR HEMOGLOBIN 28.9 pg (25.0-35.0); MEAN CORPUSCULAR HGB CONC 33.8 g/dl (31.0-37.0); MEAN PLATELET VOLUME 8.7 fl (7.0-11.0); PLATELET COUNT 598 10^3/uL (120.0-450.0); RBC 3.39 10^6/uL (3.5-6.1); RED CELL DISTRIBUTION WIDTH 14.7 % (11.5-14.5); WHITE BLOOD COUNT 11.8 10^3/ul (4.5-11.0)
[2016-09-17] MEDS: HYDROmorphone 1 mg/ml ISec IVP PRN (07:48)
[2016-09-17] MEDS: POLYETHYLENE GLYCOL 3350 17 GM/Dose PACKET PO SCH ×2 (09:36→17:22)
--- NOTE | 2016-09-17 10:46 | CP.PCM.PN ---
<Pina Estevez - Last Filed: 09/17/16 10:45> Subjective - Date & Time of Evaluation Date of Evaluation: 09/17/16 Time of Evaluation: 09:00 - Subjective Subjective: S&E in TCU, OOB to chair, abdominal xray negative, no BM yet, no N/V or abdominal pain. C/o Back pain, no acute overnight events. Tolerating clear liquid diet. Started on dose Miralax last night. ROHIT Pearce at bedside for translation. Objective - Vital Signs/Intake and Output Vital Signs (last 24 hours): Temp Pulse Resp BP Pulse Ox 98.2 F 102 H 16 139/75 98 09/16/16 16:00 09/16/16 16:00 09/16/16 16:00 09/16/16 16:00 09/16/16 16:00 - Medications Medications: Current Medications Calcium Carbonate (Caltrate) 600 mg PO BID [facility] Last Admin: 09/17/16 09:33 Dose: 600 mg Danazol (Danazol) 100 mg PO BID [facility] PRN Reason: Protocol Last Admin: 09/17/16 09:44 Dose: 100 mg Ergocalciferol (Drisdol 50,000 Intl Units Cap) 1 cap PO Q7D [facility] Last Admin: 09/14/16 11:33 Dose: 1 cap Famotidine (Pepcid) 40 mg PO 1700 [facility] PRN Reason: Protocol Last Admin: 09/16/16 18:00 Dose: Not Given Gabapentin (Neurontin) 400 mg PO TID [facility] PRN Reason: Protocol Last Admin: 09/17/16 09:35 Dose: 400 mg Hydromorphone HCl (Dilaudid) 1 mg IVP Q6 PRN PRN Reason: pain moderate (4-7) Last Admin: 09/17/16 07:48 Dose: 1 mg Sodium Chloride (Sodium Chloride 0.45%) 1,000 mls @ 50 mls/hr IV .Q20H [facility] Last Admin: 09/16/16 14:53 Dose: 50 mls/hr Lidocaine (Lidoderm) 1 ea TD DAILY [facility] PRN Reason: Protocol Last Admin: 09/16/16 14:00 Dose: 1 ea Ondansetron HCl (Zofran Inj) 4 mg IVP Q6H PRN; Protocol PRN Reason: Nausea/Vomiting Last Admin: 09/14/16 17:49 Dose: 4 mg Polyethylene Glycol (Miralax) 17 gm PO BID [facility] Last Admin: 09/17/16 09:36 Dose: 17 gm Tramadol HCl (Ultram) 50 mg PO TID [facility] PRN Reason: Protocol Last Admin: 09/17/16 09:38 Dose: 50 mg - Labs Labs: 09/17/16 06:15 09/12/16 08:19 - Constitutional Appears: No Acute Distress - Head Exam Head Exam: NORMOCEPHALIC - Eye Exam Eye Exam: Normal appearance. absent: Scleral icterus - ENT Exam ENT Exam: Mucous Membranes Moist - Respiratory Exam Respiratory Exam: Clear to Ausculation Bilateral, NORMAL BREATHING PATTERN. absent: Rales, Wheezes, Respiratory Distress - Cardiovascular Exam Cardiovascular Exam: +S1, +S2 - GI/Abdominal Exam GI & Abdominal Exam: Distended, Soft, Hypoactive Bowel Sounds. absent: Guarding , Tenderness, Organomegaly, Rebound - Rectal Exam Rectal Exam: absent: Bloody Stool, Fecal Impaction - Extremities Exam Extremities Exam: Normal Inspection. absent: Calf Tenderness, Pedal Edema - Neurological Exam Neurological Exam: Alert, Awake, Oriented x3 Assessment and Plan - Assessment and Plan (Free Text) Assessment: ASSESSMENT: Compression Fracture s/p Kyphoplasty Constipation likely secondary to Narcotic Induced constipation ITP, s/p IgG infusion PLAN: Clear Liquid on IVF for hydration on Pepcid continue Miralax BID Due for 1 st dose Relistor , abdominal xray, negative for obstruction On dilaudid, lidoderm and Ultram for pain. Seen and discussed with Dr. Spencer. <Cleopatra Spencer V - Last Filed: 09/20/16 06:41> Objective - Vital Signs/Intake and Output Vital Signs (last 24 hours): Temp Pulse Resp BP Pulse Ox 98.2 F 102 H 16 139/75 98 09/16/16 16:00 09/16/16 16:00 09/16/16 16:00 09/16/16 16:00 09/16/16 16:00 - Medications Medications: Current Medications Calcium Carbonate (Caltrate) 600 mg PO BID [facility] Last Admin: 09/17/16 17:26 Dose: 600 mg Danazol (Danazol) 100 mg PO BID [facility] PRN Reason: Protocol Last Admin: 09/17/16 17:21 Dose: 100 mg Ergocalciferol (Drisdol 50,000 Intl Units Cap) 1 cap PO Q7D [facility] Last Admin: 09/14/16 11:33 Dose: 1 cap Famotidine (Pepcid) 40 mg PO 1700 [facility] PRN Reason: Protocol Last Admin: 09/17/16 17:22 Dose: 40 mg Gabapentin (Neurontin) 400 mg PO TID [facility] PRN Reason: Protocol Last Admin: 09/17/16 15:02 Dose: 400 mg Hydromorphone HCl (Dilaudid) 1 mg IVP Q6 PRN PRN Reason: pain moderate (4-7) Last Admin: 09/17/16 07:48 Dose: 1 mg Sodium Chloride (Sodium Chloride 0.45%) 1,000 mls @ 50 mls/hr IV .Q20H [facility] Last Admin: 09/17/16 17:22 Dose: 50 mls/hr Lidocaine (Lidoderm) 1 ea TD DAILY [facility] PRN Reason: Protocol Last Admin: 09/17/16 15:05 Dose: Not Given Methylnaltrexone [place] (Relistor) 8 mg SC ONCE ONE Stop: 09/18/16 08:01 Ondansetron HCl (Zofran Inj) 4 mg IVP Q6H PRN; Protocol PRN Reason: Nausea/Vomiting Last Admin: 09/14/16 17:49 Dose: 4 mg Polyethylene Glycol (Miralax) 17 gm PO BID [facility] Last Admin: 09/17/16 17:22 Dose: Not Given Tramadol HCl (Ultram) 50 mg PO TID [facility] PRN Reason: Protocol Last Admin: 09/17/16 15:02 Dose: 50 mg - Labs Labs: 09/17/16 06:15 09/12/16 08:19 Attending/Attestation - Attestation I have personally seen and examined this patient.: Yes I have fully participated in the care of the patient.: Yes I have reviewed all pertinent clinical information, including history, physical exam and plan: Yes Notes (Text): t
[2016-09-17 11:07] LABS: BAND 7 % (0-2); LYMPHOCYTE 3 % (22.0-35.0); MONOCYTE 5 % (1.0-6.0); NEUTROPHIL 85 % (50.0-70.0); PLATELET ESTIMATE HIGH (NORMAL)
[2016-09-17 11:08] LABS: LARGE PLATELETS PRESENT
[2016-09-17] MEDS: Lidocaine 5% Patch TD SCH (15:05)
--- NOTE | 2016-09-17 17:08 | CP.PCM.PN ---
Subjective - Date & Time of Evaluation Date of Evaluation: 09/17/16 Time of Evaluation: 17:07 - Subjective Subjective: PGY-[address] Ni Got 1 dose of relistor. No BM. Instructed pt to drink more water. Instructed pt re: f/u with Dr. Ni re: ITP and yearly dose of zometa 5mg Friend, Azra Pineda, nicole Objective - Vital Signs/Intake and Output Vital Signs (last 24 hours): Temp Pulse Resp BP Pulse Ox 98.2 F 102 H 16 139/75 98 09/16/16 16:00 09/16/16 16:00 09/16/16 16:00 09/16/16 16:00 09/16/16 16:00 - Medications Medications: Current Medications Calcium Carbonate (Caltrate) 600 mg PO BID [facility] Last Admin: 09/17/16 09:33 Dose: 600 mg Danazol (Danazol) 100 mg PO BID ZAC PRN Reason: Protocol Last Admin: 09/17/16 09:44 Dose: 100 mg Ergocalciferol (Drisdol 50,000 Intl Units Cap) 1 cap PO Q7D [facility]AC Last Admin: 09/14/16 11:33 Dose: 1 cap Famotidine (Pepcid) 40 mg PO 1700 ZAC PRN Reason: Protocol Last Admin: 09/16/16 18:00 Dose: Not Given Gabapentin (Neurontin) 400 mg PO TID ZAC PRN Reason: Protocol Last Admin: 09/17/16 15:02 Dose: 400 mg Hydromorphone HCl (Dilaudid) 1 mg IVP Q6 PRN PRN Reason: pain moderate (4-7) Last Admin: 09/17/16 07:48 Dose: 1 mg Sodium Chloride (Sodium Chloride 0.45%) 1,000 mls @ 50 mls/hr IV .Q20H ZAC Last Admin: 09/16/16 14:53 Dose: 50 mls/hr Lidocaine (Lidoderm) 1 ea TD DAILY ZAC PRN Reason: Protocol Last Admin: 09/17/16 15:05 Dose: Not Given Methylnaltrexone [place] (Relistor) 8 mg SC ONCE ONE Stop: 09/18/16 08:01 Ondansetron HCl (Zofran Inj) 4 mg IVP Q6H PRN; Protocol PRN Reason: Nausea/Vomiting Last Admin: 09/14/16 17:49 Dose: 4 mg Polyethylene Glycol (Miralax) 17 gm PO BID [facility]AC Last Admin: 09/17/16 09:36 Dose: 17 gm Tramadol HCl (Ultram) 50 mg PO TID ZAC PRN Reason: Protocol Last Admin: 09/17/16 15:02 Dose: 50 mg - Labs Labs: 09/17/16 06:15 09/12/16 08:19 - Constitutional Appears: No Acute Distress - Head Exam Head Exam: ATRAUMATIC, NORMAL INSPECTION, NORMOCEPHALIC - Eye Exam Eye Exam: EOMI, Normal appearance, PERRL. absent: Scleral icterus Pupil Exam: NORMAL ACCOMODATION - ENT Exam ENT Exam: Mucous Membranes Moist - Neck Exam Additional comments: supple - Respiratory Exam Respiratory Exam: Clear to Ausculation Bilateral. absent: Rales, Rhonchi, Wheezes - Cardiovascular Exam Cardiovascular Exam: REGULAR RHYTHM, +S1, +S2. absent: Murmur - GI/Abdominal Exam GI & Abdominal Exam: Soft. absent: Distended, Rigid, Tenderness - Extremities Exam Extremities Exam: Normal Capillary Refill. absent: Calf Tenderness, Pedal Edema - Neurological Exam Neurological Exam: Alert, Awake, Normal Gait, Oriented x3 - Psychiatric Exam Psychiatric exam: Normal Affect, Normal Mood - Skin Skin Exam: Dry, Warm Assessment and Plan - Assessment and Plan (Free Text) Plan: 71 F with Hx idiopathic thrombocytopenia purpura, recent khyphoplasty T10 due to compression fracture, admitted for new T9 compression fracture and intractable back pain. MRI of Thoracic spine has new minimal compression fracture inferior endplate of T9 adjacent to recent kyphoplasty. Minimal marrow edema within T8 vertebral body with no comrpession deformity. kyphoplasty on . Pt has deconditioning and requires TCU for rehab. Pt is receiving ivig 5/5. Pt has opioid induce relistor, no BM x 5 days. Constipation opioid induced - s/p relistor x 1 - flat plate shows no obstruction - clear liquid for now - will attempt another dose of relistor tomorrow - adviced pt to drink more water Hx ITP - improving - s/p IVIG x total of 5 days - Watch progression to aplastic anemia - Danazol 100 BID - If plt counts drop again would recommned cessation of danazole and initaiting pulse dex 40mg qd x4 days. - Will plan on restarting gammaglobulins tomorrow for 2 additional days-- 5 days total per original hematology recommendations. - Will attempt to gave 30g of IVIG in outpatient clinic if possible - Today, plt is 541, likely reactive - Pt could not tolerate steroid in the past. In addition, pt had compression fracture Compression fracture T9, T10 s/p kyphoplasty x 2 - Lidocaine TD daily, Gabapentin 400 TID, ultram 50 TID, dilaudud 1q6 PRN, lactulose 20 daily Osteoporosis - Ca nl; Vit D 19.7 (low), PTH 44 (nl), Mg (1.9), Phos (3) - Dexa: Lumbar spine T-4, L hip T-2.7, L forearm T-5 - Reclast every year with Ca 1200 mg/d and vit-D 50K weekly supplement Nomocytic anemia - Asymptpmatic - TIBC low, LFT nl; Fe and % sat nl. - B12, folate normal - Continue observe. Prophylaxis - Pepcid 40, SCD Discharge planning - follow up with Dr. Ni in 2 week for ITP - Discharge on 09/19 (Tuesday) - Reclast every year s/r/d/w Dr. Ni
--- NOTE | 2016-09-18 00:25 | CP.PCM.PN ---
Subjective - Date & Time of Evaluation Date of Evaluation: 09/17/16 Time of Evaluation: 01:00 - Subjective Subjective: S&E in TCU, OOB to chair, abdominal xray negative, no BM yet, no N/V or abdominal pain. C/o Back pain /10 , no acute overnight events. Tolerating clear liquid diet. Started on dose Miralax last night. getting pt Objective - Vital Signs/Intake and Output Vital Signs (last 24 hours): Temp Pulse Resp BP Pulse Ox 98.2 F 102 H 16 139/75 98 09/16/16 16:00 09/16/16 16:00 09/16/16 16:00 09/16/16 16:00 09/16/16 16:00 - Medications Medications: Current Medications Calcium Carbonate (Caltrate) 600 mg PO BID [facility] Last Admin: 09/17/16 17:26 Dose: 600 mg Danazol (Danazol) 100 mg PO BID ZAC PRN Reason: Protocol Last Admin: 09/17/16 17:21 Dose: 100 mg Ergocalciferol (Drisdol 50,000 Intl Units Cap) 1 cap PO Q7D ZAC Last Admin: 09/14/16 11:33 Dose: 1 cap Famotidine (Pepcid) 40 mg PO 1700 ZAC PRN Reason: Protocol Last Admin: 09/17/16 17:22 Dose: 40 mg Gabapentin (Neurontin) 400 mg PO TID ZAC PRN Reason: Protocol Last Admin: 09/17/16 15:02 Dose: 400 mg Hydromorphone HCl (Dilaudid) 1 mg IVP Q6 PRN PRN Reason: pain moderate (4-7) Last Admin: 09/17/16 07:48 Dose: 1 mg Sodium Chloride (Sodium Chloride 0.45%) 1,000 mls @ 50 mls/hr IV .Q20H ZAC Last Admin: 09/17/16 17:22 Dose: 50 mls/hr Lidocaine (Lidoderm) 1 ea TD DAILY ZAC PRN Reason: Protocol Last Admin: 09/17/16 15:05 Dose: Not Given Methylnaltrexone [place] (Relistor) 8 mg SC ONCE ONE Stop: 09/18/16 08:01 Ondansetron HCl (Zofran Inj) 4 mg IVP Q6H PRN; Protocol PRN Reason: Nausea/Vomiting Last Admin: 09/14/16 17:49 Dose: 4 mg Polyethylene Glycol (Miralax) 17 gm PO BID [facility]AC Last Admin: 09/17/16 17:22 Dose: Not Given Tramadol HCl (Ultram) 50 mg PO TID ZAC PRN Reason: Protocol Last Admin: 09/17/16 15:02 Dose: 50 mg - Labs Labs: 09/17/16 06:15 09/12/16 08:19 - Constitutional Appears: Well - Head Exam Head Exam: ATRAUMATIC, NORMAL INSPECTION, NORMOCEPHALIC - Eye Exam Eye Exam: EOMI, Normal appearance, PERRL Pupil Exam: NORMAL ACCOMODATION, PERRL - ENT Exam ENT Exam: Mucous Membranes Moist, Normal Exam - Neck Exam Neck Exam: Full ROM, Normal Inspection. absent: Lymphadenopathy - Respiratory Exam Respiratory Exam: Clear to Ausculation Bilateral, NORMAL BREATHING PATTERN - Cardiovascular Exam Cardiovascular Exam: REGULAR RHYTHM, +S1, +S2. absent: Murmur - GI/Abdominal Exam GI & Abdominal Exam: Soft, Normal Bowel Sounds. absent: Tenderness - Rectal Exam Rectal Exam: NORMAL INSPECTION - Exam Exam: Circumcision, NORMAL INSPECTION External exam: NORMAL EXTERNAL EXAM Speculum exam: NORMAL SPECULUM EXAM Bimanual exam: NORMAL BIMANUAL EXAM - Extremities Exam Extremities Exam: Full ROM, Normal Capillary Refill, Normal Inspection. absent : Joint Swelling, Pedal Edema - Back Exam Back Exam: NORMAL INSPECTION - Neurological Exam Neurological Exam: Alert, Awake, CN II-XII Intact, Normal Gait, Oriented x3 - Psychiatric Exam Psychiatric exam: Normal Affect, Normal Mood - Skin Skin Exam: Dry, Intact, Normal Color, Warm Assessment and Plan (1) Acute constipation Status: Acute (2) Back pain Status: Acute (3) Back pain Status: Acute (4) Compression fracture Status: Acute (5) DJD (degenerative joint disease) Status: Acute (6) Status post kyphoplasty Status: Acute (7) Thrombocytopenia Status: Acute - Assessment and Plan (Free Text) Assessment: 71 F with Hx idiopathic thrombocytopenia purpura, recent khyphoplasty T10 due to compression fracture, admitted for new T9 compression fracture and intractable back pain. MRI of Thoracic spine has new minimal compression fracture inferior endplate of T9 adjacent to recent kyphoplasty. Minimal marrow edema within T8 vertebral body with no comrpession deformity. kyphoplasty on . Pt has deconditioning and requires TCU for rehab. Pt is receiving ivig 5/5. Pt has opioid induce relistor, no BM x 5 days. Constipation opioid induced - s/p relistor x 1 - flat plate shows no obstruction - clear liquid for now - will attempt another dose of relistor tomorrow - adviced pt to drink more water Hx ITP - improving - s/p IVIG x total of 5 days - Watch progression to aplastic anemia - Danazol 100 BID - If plt counts drop again would recommned cessation of danazole and initaiting pulse dex 40mg qd x4 days. - Will plan on restarting gammaglobulins tomorrow for 2 additional days-- 5 days total per original hematology recommendations. - Will attempt to gave 30g of IVIG in outpatient clinic if possible - Today, plt is 541, likely reactive - Pt could not tolerate steroid in the past. In addition, pt had compression fracture Compression fracture T9, T10 s/p kyphoplasty x 2 - Lidocaine TD daily, Gabapentin 400 TID, ultram 50 TID, dilaudud 1q6 PRN, lactulose 20 daily Osteoporosis - Ca nl; Vit D 19.7 (low), PTH 44 (nl), Mg (1.9), Phos (3) - Dexa: Lumbar spine T-4, L hip T-2.7, L forearm T-5 - Reclast every year with Ca 1200 mg/d and vit-D 50K weekly supplement Nomocytic anemia - Asymptpmatic - TIBC low, LFT nl; Fe and % sat nl. - B12, folate normal - Continue observe. Prophylaxis - Pepcid 40, SCD Discharge planning - Discharge on 09/19 (Tuesday) - Reclast every year
[2016-09-18 07:29] LABS: BASO # 0.02 K/mm3 (0.0-2.0); BASO % 0.2 % (0.0-3.0); EOS % 0.1 % (1.5-5.0); GRAN # 6.65 (1.4-6.5); GRAN % 68.6 % (50.0-68.0); HEMOGLOBIN 9.4 gm/dL (12.0-16.0); LYMPH # 1.9 (1.2-3.4); LYMPH % 19.5 % (22.0-35.0); MEAN CELL VOLUME 86.1 fL (80.0-105.0); MEAN CORPUSCULAR HEMOGLOBIN 28.5 pg (25.0-35.0); MEAN CORPUSCULAR HGB CONC 33.1 g/dl (31.0-37.0); MEAN PLATELET VOLUME 8.5 fl (7.0-11.0); MONO # 1.1 (0.1-0.6); MONO % 11.6 % (1.0-6.0); PLATELET COUNT 577 10^3/uL (120.0-450.0); RED CELL DISTRIBUTION WIDTH 15.6 % (11.5-14.5); WHITE BLOOD COUNT 9.7 10^3/ul (4.5-11.0)
[2016-09-18] MEDS: HYDROmorphone 1 mg/ml ISec IVP PRN (08:15)
[2016-09-18] MEDS: Lidocaine 5% Patch TD SCH ×2 (11:28→11:41)
[2016-09-18] MEDS: POLYETHYLENE GLYCOL 3350 17 GM/Dose PACKET PO SCH ×2 (11:29→17:40)
[2016-09-18] MEDS: Sodium Chloride 0.45% 1,000 ML IV SCH (23:55)
--- NOTE | 2016-09-19 02:05 | PN ---
SUBJECTIVE: The patient was seen and examined at the bedside, looks comfortable. Yesterday she still did not have bowel movement. No nausea, vomiting. Back pain is getting better. No swelling of leg. No hematuria, no hematochezia. PHYSICAL EXAMINATION: VITAL SIGNS: Temperature 98, pulse 82, blood pressure 123/70, respiratory rate 18. HEENT: Head is normocephalic and atraumatic. Eyes PERRLA. Extraocular muscles intact. Conjunctivae clear. Nose patent. Mucous membrane moist. NECK: Supple. No carotid bruits or thyromegaly. CHEST: Bilaterally symmetrical. HEART: S1 and S2 positive. LUNGS: Clear to auscultation. ABDOMEN: Soft. Bowel sounds present without organomegaly. EXTREMITIES: No edema. No cyanosis. NEUROLOGIC: The patient is awake and alert. Moving all four extremities. No focal deficit. MEDICATIONS: Calcium carbonate, Danazol, Dilaudid, vitamin D, Enulose, Lidoderm, MiraLax, Neurontin, Pepcid,tramadol and Zofran. LABORATORY DATA: White blood cell 9.7, hemoglobin 9.4, hematocrit 28.4, platelets 577. Sodium 136, potassium 4.3, glucose 175. ASSESSMENT AND PLAN: Cori Alonso is a 71-year-old female with history of leukocytosis improved, anemia, thrombocytosis, hyperglycemia, idiopathic thrombocytopenia, has constipation maybe induced with narcotics, now got Relistor, I think 2 doses, but still not having bowel movement. Instructed to drink more water. Status post IVIG of total 5 doses, got Danazol. Compression fracture at T9 and T10 status post kyphoplasty x2. Lidoderm patch, gabapentin, tramadol, Dilaudid, lactulose, osteoporosis, getting calcium with vitamin D. Normocytic anemia. Gastrointestinal and deep venous thrombosis prophylaxis. GI is on the case for chronic constipation. Repeat labs. We will follow up. Corazon Hernández MD [id number]
[2016-09-19 07:13] LABS: BASO # 0.03 K/mm3 (0.0-2.0); BASO % 0.3 % (0.0-3.0); EOS # 0.1 (0.0-0.7); EOS % 0.6 % (1.5-5.0); GRAN # 6.99 (1.4-6.5); GRAN % 64.6 % (50.0-68.0); HEMOGLOBIN 9.2 gm/dL (12.0-16.0); LYMPH # 2.8 (1.2-3.4); LYMPH % 25.7 % (22.0-35.0); MEAN CELL VOLUME 86.4 fL (80.0-105.0); MEAN CORPUSCULAR HEMOGLOBIN 28.5 pg (25.0-35.0); MEAN PLATELET VOLUME 8.8 fl (7.0-11.0); MONO % 8.8 % (1.0-6.0); PLATELET COUNT 566 10^3/uL (120.0-450.0); RBC 3.23 10^6/uL (3.5-6.1); RED CELL DISTRIBUTION WIDTH 16.4 % (11.5-14.5); WHITE BLOOD COUNT 10.8 10^3/ul (4.5-11.0)
[2016-09-19 10:49] VITALS: RESP 18
[2016-09-19] MEDS: Lidocaine 5% Patch TD SCH (10:51)
[2016-09-19] MEDS: POLYETHYLENE GLYCOL 3350 17 GM/Dose PACKET PO SCH ×2 (10:52→18:22)
--- NOTE | 2016-09-19 20:51 | CP.PCM.PN ---
Subjective - Date & Time of Evaluation Date of Evaluation: 09/18/16 Time of Evaluation: 20:00 - Subjective Subjective: Ms. Rendon is a 71 y/o female with pmhx significant for vetebral compression fracture of T10 s/p kyphoplasty and metastarsel fracture admitted with ITP treated with IVIG x5 days and started on danzole 100mg BID with subsequent improvemetn in platelets. Patient would ideally benefit from a bone marrow biopsy to rule primary bone marrow process which is less likely. If counts drop again would recommned cessation of danazole and initaiting pulse dex 40mg qd x4 days. Patient's counts continue to be stable. Will require outpatient hematology apt in next 1-2 weeks. patient noted to have constipation (no BM in 6 days) and stated that lactulose worked for her in the past. Will recommend to primary team accordingly. Nura Ni MD Oncology Service Objective - Vital Signs/Intake and Output Vital Signs (last 24 hours): Temp Pulse Resp BP Pulse Ox 97.5 F L 97 H 18 111/72 98 09/19/16 16:02 09/19/16 16:02 09/19/16 16:02 09/19/16 16:02 09/19/16 16:02 - Medications Medications: Current Medications Calcium Carbonate (Caltrate) 600 mg PO BID [facility] Last Admin: 09/19/16 18:21 Dose: 600 mg Ergocalciferol (Drisdol 50,000 Intl Units Cap) 1 cap PO Q7D [facility]AC Last Admin: 09/14/16 11:33 Dose: 1 cap Famotidine (Pepcid) 40 mg PO 1700 ZAC PRN Reason: Protocol Last Admin: 09/19/16 18:21 Dose: 40 mg Gabapentin (Neurontin) 400 mg PO TID ZAC PRN Reason: Protocol Last Admin: 09/19/16 18:21 Dose: 400 mg Hydromorphone HCl (Dilaudid) 1 mg IVP Q6 PRN PRN Reason: pain moderate (4-7) Last Admin: 09/18/16 08:15 Dose: 1 mg Sodium Chloride (Sodium Chloride 0.45%) 1,000 mls @ 50 mls/hr IV .Q20H ZAC Last Admin: 09/18/16 23:55 Dose: 50 mls/hr Lactulose (Enulose) 20 gm PO HS ZAC PRN Reason: Protocol Last Admin: 09/19/16 10:53 Dose: 20 gm Lidocaine (Lidoderm) 1 ea TD DAILY ZAC PRN Reason: Protocol Last Admin: 09/19/16 10:51 Dose: 1 ea Ondansetron HCl (Zofran Inj) 4 mg IVP Q6H PRN; Protocol PRN Reason: Nausea/Vomiting Last Admin: 09/14/16 17:49 Dose: 4 mg Polyethylene Glycol (Miralax) 17 gm PO BID [facility] Last Admin: 09/19/16 18:22 Dose: Not Given Tramadol HCl (Ultram) 50 mg PO TID ZAC PRN Reason: Protocol Last Admin: 09/19/16 18:20 Dose: 50 mg - Labs Labs: 09/19/16 06:00 09/12/16 08:19
--- NOTE | 2016-09-19 20:52 | CP.PCM.PN ---
Subjective - Date & Time of Evaluation Date of Evaluation: 09/19/16 Time of Evaluation: 21:00 - Subjective Subjective: No acute events. Had BM's yesterday after lactulose Objective - Vital Signs/Intake and Output Vital Signs (last 24 hours): Temp Pulse Resp BP Pulse Ox 97.5 F L 97 H 18 111/72 98 09/19/16 16:02 09/19/16 16:02 09/19/16 16:02 09/19/16 16:02 09/19/16 16:02 - Medications Medications: Current Medications Calcium Carbonate (Caltrate) 600 mg PO BID [facility] Last Admin: 09/19/16 18:21 Dose: 600 mg Ergocalciferol (Drisdol 50,000 Intl Units Cap) 1 cap PO Q7D [facility] Last Admin: 09/14/16 11:33 Dose: 1 cap Famotidine (Pepcid) 40 mg PO 1700 ZAC PRN Reason: Protocol Last Admin: 09/19/16 18:21 Dose: 40 mg Gabapentin (Neurontin) 400 mg PO TID ZAC PRN Reason: Protocol Last Admin: 09/19/16 18:21 Dose: 400 mg Hydromorphone HCl (Dilaudid) 1 mg IVP Q6 PRN PRN Reason: pain moderate (4-7) Last Admin: 09/18/16 08:15 Dose: 1 mg Sodium Chloride (Sodium Chloride 0.45%) 1,000 mls @ 50 mls/hr IV .Q20H [facility] Last Admin: 09/18/16 23:55 Dose: 50 mls/hr Lactulose (Enulose) 20 gm PO HS ZAC PRN Reason: Protocol Last Admin: 09/19/16 10:53 Dose: 20 gm Lidocaine (Lidoderm) 1 ea TD DAILY ZAC PRN Reason: Protocol Last Admin: 09/19/16 10:51 Dose: 1 ea Ondansetron HCl (Zofran Inj) 4 mg IVP Q6H PRN; Protocol PRN Reason: Nausea/Vomiting Last Admin: 09/14/16 17:49 Dose: 4 mg Polyethylene Glycol (Miralax) 17 gm PO BID [facility] Last Admin: 09/19/16 18:22 Dose: Not Given Tramadol HCl (Ultram) 50 mg PO TID ZAC PRN Reason: Protocol Last Admin: 09/19/16 18:20 Dose: 50 mg - Labs Labs: 09/19/16 06:00 09/12/16 08:19 - Constitutional Appears: Well - Respiratory Exam Respiratory Exam: Accessory Muscle Use - Cardiovascular Exam Cardiovascular Exam: REGULAR RHYTHM, +S1, +S2. absent: Murmur - Extremities Exam Extremities Exam: Full ROM, Normal Capillary Refill, Normal Inspection. absent : Joint Swelling, Pedal Edema Assessment and Plan - Assessment and Plan (Free Text) Assessment: Ms. Rendon is a 71 y/o female with pmhx significant for vetebral compression fracture of T10 s/p kyphoplasty and metastarsel fracture admitted with ITP treated with IVIG x5 days and started on danzole 100mg BID with subsequent improvemetn in platelets. Patient would ideally benefit from a bone marrow biopsy to rule primary bone marrow process which is less likely. If counts drop again would recommned cessation of danazole and initaiting pulse dex 40mg qd x4 days. Patient's counts continue to be stable. Will require outpatient hematology apt in next 1-2 weeks. Nura Ni MD Oncology Servic
--- NOTE | 2016-09-20 02:24 | CP.PCM.PN ---
Subjective - Date & Time of Evaluation Date of Evaluation: 09/19/06 Time of Evaluation: 04:00 - Subjective Subjective: No acute events. Had BM's yesterday after lactulose, today c/o abdominal pain , gi is on the case . will go for cat scane of abdomen tomarrow Objective - Vital Signs/Intake and Output Vital Signs (last 24 hours): Temp Pulse Resp BP Pulse Ox 97.5 F L 97 H 18 111/72 98 09/19/16 16:02 09/19/16 16:02 09/19/16 16:02 09/19/16 16:02 09/19/16 16:02 - Medications Medications: Current Medications Calcium Carbonate (Caltrate) 600 mg PO BID [facility] Last Admin: 09/19/16 18:21 Dose: 600 mg Ergocalciferol (Drisdol 50,000 Intl Units Cap) 1 cap PO Q7D [facility] Last Admin: 09/14/16 11:33 Dose: 1 cap Famotidine (Pepcid) 40 mg PO 1700 ZAC PRN Reason: Protocol Last Admin: 09/19/16 18:21 Dose: 40 mg Gabapentin (Neurontin) 400 mg PO TID ZAC PRN Reason: Protocol Last Admin: 09/19/16 18:21 Dose: 400 mg Hydromorphone HCl (Dilaudid) 1 mg IVP Q6 PRN PRN Reason: pain moderate (4-7) Last Admin: 09/18/16 08:15 Dose: 1 mg Sodium Chloride (Sodium Chloride 0.45%) 1,000 mls @ 50 mls/hr IV .Q20H [facility] Last Admin: 09/18/16 23:55 Dose: 50 mls/hr Lactulose (Enulose) 20 gm PO HS ZAC PRN Reason: Protocol Last Admin: 09/19/16 10:53 Dose: 20 gm Lidocaine (Lidoderm) 1 ea TD DAILY ZAC PRN Reason: Protocol Last Admin: 09/19/16 10:51 Dose: 1 ea Ondansetron HCl (Zofran Inj) 4 mg IVP Q6H PRN; Protocol PRN Reason: Nausea/Vomiting Last Admin: 09/14/16 17:49 Dose: 4 mg Polyethylene Glycol (Miralax) 17 gm PO BID [facility] Last Admin: 09/19/16 18:22 Dose: Not Given Tramadol HCl (Ultram) 50 mg PO TID ZAC PRN Reason: Protocol Last Admin: 09/19/16 18:20 Dose: 50 mg - Labs Labs: 09/19/16 06:00 09/12/16 08:19 - Constitutional Appears: Well - Head Exam Head Exam: ATRAUMATIC, NORMAL INSPECTION, NORMOCEPHALIC - Eye Exam Eye Exam: EOMI, Normal appearance, PERRL Pupil Exam: NORMAL ACCOMODATION, PERRL - ENT Exam ENT Exam: Mucous Membranes Moist, Normal Exam - Neck Exam Neck Exam: Full ROM, Normal Inspection. absent: Lymphadenopathy - Respiratory Exam Respiratory Exam: Clear to Ausculation Bilateral, NORMAL BREATHING PATTERN - Cardiovascular Exam Cardiovascular Exam: REGULAR RHYTHM, +S1, +S2. absent: Murmur - GI/Abdominal Exam GI & Abdominal Exam: Soft, Normal Bowel Sounds. absent: Tenderness - Rectal Exam Rectal Exam: NORMAL INSPECTION - Exam Exam: Circumcision, NORMAL INSPECTION External exam: NORMAL EXTERNAL EXAM Speculum exam: NORMAL SPECULUM EXAM Bimanual exam: NORMAL BIMANUAL EXAM - Extremities Exam Extremities Exam: Full ROM, Normal Capillary Refill, Normal Inspection. absent : Joint Swelling, Pedal Edema - Back Exam Back Exam: NORMAL INSPECTION - Neurological Exam Neurological Exam: Alert, Awake, CN II-XII Intact, Normal Gait, Oriented x3 - Psychiatric Exam Psychiatric exam: Normal Affect, Normal Mood - Skin Skin Exam: Dry, Intact, Normal Color, Warm Assessment and Plan (1) Acute constipation Status: Acute (2) Back pain Status: Acute (3) Back pain Status: Acute (4) Compression fracture Status: Acute (5) DJD (degenerative joint disease) Status: Acute (6) Status post kyphoplasty Status: Acute (7) Thrombocytopenia Status: Acute - Assessment and Plan (Free Text) Assessment: Ms. Rendon is a 71 y/o female with pmhx significant for vetebral compression fracture of T10 s/p kyphoplasty and metastarsel fracture admitted with ITP treated with IVIG x5 days and started on danzole 100mg BID with subsequent improvemetn in platelets. Patient would ideally benefit from a bone marrow biopsy to rule primary bone marrow process which is less likely. If counts drop again would recommned cessation of danazole and initaiting pulse dex 40mg qd x4 days. Patient's counts continue to be stable. Will require outpatient hematology apt in next 1-2 weeks.
--- NOTE | 2016-09-20 06:47 | CP.PCM.PN ---
Subjective - Date & Time of Evaluation Date of Evaluation: 09/19/16 Time of Evaluation: 14:15 - Subjective Subjective: Finally this patient had 3 bowel movements large amounts. But presently complaining of diffuse abdominal discomfort no vomiting no bleeding per rectum Objective - Vital Signs/Intake and Output Vital Signs (last 24 hours): Temp Pulse Resp BP Pulse Ox 97.5 F L 97 H 18 111/72 98 09/19/16 16:02 09/19/16 16:02 09/19/16 16:02 09/19/16 16:02 09/19/16 16:02 - Medications Medications: Current Medications Calcium Carbonate (Caltrate) 600 mg PO BID [facility] Last Admin: 09/19/16 18:21 Dose: 600 mg Ergocalciferol (Drisdol 50,000 Intl Units Cap) 1 cap PO Q7D [facility] Last Admin: 09/14/16 11:33 Dose: 1 cap Famotidine (Pepcid) 40 mg PO 1700 [facility] PRN Reason: Protocol Last Admin: 09/19/16 18:21 Dose: 40 mg Gabapentin (Neurontin) 400 mg PO TID ZAC PRN Reason: Protocol Last Admin: 09/19/16 18:21 Dose: 400 mg Hydromorphone HCl (Dilaudid) 1 mg IVP Q6 PRN PRN Reason: pain moderate (4-7) Last Admin: 09/18/16 08:15 Dose: 1 mg Sodium Chloride (Sodium Chloride 0.45%) 1,000 mls @ 50 mls/hr IV .Q20H [facility] Last Admin: 09/18/16 23:55 Dose: 50 mls/hr Lactulose (Enulose) 20 gm PO HS [facility] PRN Reason: Protocol Last Admin: 09/19/16 10:53 Dose: 20 gm Lidocaine (Lidoderm) 1 ea TD DAILY [facility] PRN Reason: Protocol Last Admin: 09/19/16 10:51 Dose: 1 ea Ondansetron HCl (Zofran Inj) 4 mg IVP Q6H PRN; Protocol PRN Reason: Nausea/Vomiting Last Admin: 09/14/16 17:49 Dose: 4 mg Polyethylene Glycol (Miralax) 17 gm PO BID [facility] Last Admin: 09/19/16 18:22 Dose: Not Given Tramadol HCl (Ultram) 50 mg PO TID [facility] PRN Reason: Protocol Last Admin: 09/19/16 18:20 Dose: 50 mg - Labs Labs: 09/19/16 06:00 09/12/16 08:19 - Constitutional Appears: Non-toxic, No Acute Distress - Head Exam Head Exam: ATRAUMATIC, NORMOCEPHALIC - Eye Exam Eye Exam: EOMI, PERRL - Neck Exam Neck Exam: Full ROM. absent: Lymphadenopathy - Respiratory Exam Respiratory Exam: NORMAL BREATHING PATTERN. absent: Rales, Rhonchi - Cardiovascular Exam Cardiovascular Exam: Diastolic murmur, REGULAR RHYTHM, +S1. absent: JVD - GI/Abdominal Exam GI & Abdominal Exam: Soft, Tenderness, Normal Bowel Sounds. absent: Mass Additional comments: Mild diffuse tenderness present.. Abdomen appeared to be softly distended - Extremities Exam Extremities Exam: Full ROM. absent: Calf Tenderness - Neurological Exam Neurological Exam: Alert, Awake, Oriented x3 Assessment and Plan - Assessment and Plan (Free Text) Plan: Constipation probably narcotic-induced and status post kyphoplasty Status post relistor Patient finally had bowel movements after lactulose The concern is a abdominal distention and diffuse tenderness Rule out colitis Other problems include a ITP patient is being followed by hematology. Discussed with the Dr. Ni yesterday Plan CT Abdomen and pelvis with by mouth contrast Stool for C. difficile Liquid diet till the CT is reviewed
--- NOTE | 2016-09-20 07:14 | CP.PCM.PN ---
Subjective - Date & Time of Evaluation Date of Evaluation: 09/20/16 Time of Evaluation: 07:12 - Subjective Subjective: PGY-[address] Ni 5 BM over the weekend, soft formed. Abd pain resolved this am. No acute complaints overnight Objective - Vital Signs/Intake and Output Vital Signs (last 24 hours): Temp Pulse Resp BP Pulse Ox 98.4 F 86 18 99/52 L 95 09/20/16 06:00 09/20/16 06:00 09/20/16 06:00 09/20/16 06:00 09/20/16 06:00 - Medications Medications: Current Medications Calcium Carbonate (Caltrate) 600 mg PO BID [facility] Last Admin: 09/19/16 18:21 Dose: 600 mg Ergocalciferol (Drisdol 50,000 Intl Units Cap) 1 cap PO Q7D [facility] Last Admin: 09/14/16 11:33 Dose: 1 cap Famotidine (Pepcid) 40 mg PO 1700 [facility] PRN Reason: Protocol Last Admin: 09/19/16 18:21 Dose: 40 mg Gabapentin (Neurontin) 400 mg PO TID ZAC PRN Reason: Protocol Last Admin: 09/19/16 18:21 Dose: 400 mg Hydromorphone HCl (Dilaudid) 1 mg IVP Q6 PRN PRN Reason: pain moderate (4-7) Last Admin: 09/18/16 08:15 Dose: 1 mg Sodium Chloride (Sodium Chloride 0.45%) 1,000 mls @ 50 mls/hr IV .Q20H [facility] Last Admin: 09/18/16 23:55 Dose: 50 mls/hr Lactulose (Enulose) 20 gm PO HS ZAC PRN Reason: Protocol Last Admin: 09/19/16 10:53 Dose: 20 gm Lidocaine (Lidoderm) 1 ea TD DAILY [facility] PRN Reason: Protocol Last Admin: 09/19/16 10:51 Dose: 1 ea Ondansetron HCl (Zofran Inj) 4 mg IVP Q6H PRN; Protocol PRN Reason: Nausea/Vomiting Last Admin: 09/14/16 17:49 Dose: 4 mg Polyethylene Glycol (Miralax) 17 gm PO BID [facility] Last Admin: 09/19/16 18:22 Dose: Not Given Tramadol HCl (Ultram) 50 mg PO TID ZAC PRN Reason: Protocol Last Admin: 09/19/16 18:20 Dose: 50 mg - Labs Labs: 09/19/16 06:00 09/12/16 08:19 - Constitutional Appears: No Acute Distress - Head Exam Head Exam: ATRAUMATIC, NORMAL INSPECTION, NORMOCEPHALIC - Eye Exam Eye Exam: EOMI, Normal appearance, PERRL. absent: Scleral icterus Pupil Exam: NORMAL ACCOMODATION - Respiratory Exam Respiratory Exam: Clear to Ausculation Bilateral. absent: Rales, Rhonchi, Wheezes - Cardiovascular Exam Cardiovascular Exam: REGULAR RHYTHM, +S1, +S2 - GI/Abdominal Exam GI & Abdominal Exam: Soft. absent: Firm, Guarding, Rigid, Tenderness - Extremities Exam Extremities Exam: Normal Capillary Refill. absent: Calf Tenderness, Pedal Edema - Back Exam Back Exam: absent: CVA tenderness (L), CVA tenderness (R) - Neurological Exam Neurological Exam: Alert, Awake, Oriented x3 - Psychiatric Exam Psychiatric exam: Normal Affect, Normal Mood - Skin Skin Exam: Dry, Warm Assessment and Plan - Assessment and Plan (Free Text) Plan: 71 F with Hx idiopathic thrombocytopenia purpura, recent khyphoplasty T10 due to compression fracture, admitted for new T9 compression fracture and intractable back pain. MRI of Thoracic spine has new minimal compression fracture inferior endplate of T9 adjacent to recent kyphoplasty. Minimal marrow edema within T8 vertebral body with no comrpession deformity. kyphoplasty on . Pt has deconditioning and requires TCU for rehab. Pt is receiving ivig 5/. Pt has opioid induce constipation s/p relistor x 2 days. During this weekend, pt finally has 3 bowel movements large amounts, but complained of diffuse abdominal discomfort w/ no vomiting no bleeding per rectum. Pending CT abd/ pelvis with PO contrast today. Continue liquid diet. Diffuse abdominal pain - resolved Constipation opioid induced - s/p relistor x 2 - resolved - flat plate shows no obstruction - pending CT abd/pelvis with PO contrast - clear liquid for now - adviced pt to drink more water - Pending c. diff Hx ITP - improving - s/p IVIG x total of 5 days - Watch progression to aplastic anemia - Danazol 100 BID - If plt counts drop again would recommned cessation of danazole and initaiting pulse dex 40mg qd x4 days. - Will plan on restarting gammaglobulins tomorrow for 2 additional days-- 5 days total per original hematology recommendations. - Will attempt to gave 30g of IVIG in outpatient clinic if possible - Today, plt is 541, likely reactive - Pt could not tolerate steroid in the past. In addition, pt had compression fracture Compression fracture T9, T10 s/p kyphoplasty x 2 - Lidocaine TD daily, Gabapentin 400 TID, ultram 50 TID, dilaudud 1q6 PRN, lactulose 20 daily Osteoporosis - Ca nl; Vit D 19.7 (low), PTH 44 (nl), Mg (1.9), Phos (3) - Dexa: Lumbar spine T-4, L hip T-2.7, L forearm T-5 - Reclast every year with Ca 1200 mg/d and vit-D 50K weekly supplement Nomocytic anemia - Asymptpmatic - TIBC low, LFT nl; Fe and % sat nl. - B12, folate normal - Continue observe. Prophylaxis - Pepcid 40, SCD Discharge planning - follow up with Dr. Ni in 2 week for ITP - pending GI clearance for discharge - Reclast every year - station supervisor danazol, calcium, and vitD at pharmacy (electronically transferred) s/r/d/w Dr. Ni
[2016-09-20 07:50] LABS: BASO # 0.04 K/mm3 (0.0-2.0); BASO % 0.4 % (0.0-3.0); EOS # 0.1 (0.0-0.7); EOS % 1.4 % (1.5-5.0); GRAN # 6.38 (1.4-6.5); GRAN % 66.4 % (50.0-68.0); HEMOGLOBIN 9.6 gm/dL (12.0-16.0); LYMPH # 2.4 (1.2-3.4); LYMPH % 24.6 % (22.0-35.0); MEAN CELL VOLUME 86.7 fL (80.0-105.0); MEAN CORPUSCULAR HEMOGLOBIN 29.1 pg (25.0-35.0); MEAN CORPUSCULAR HGB CONC 33.6 g/dl (31.0-37.0); MEAN PLATELET VOLUME 8.4 fl (7.0-11.0); MONO # 0.7 (0.1-0.6); MONO % 7.2 % (1.0-6.0); PLATELET COUNT 544 10^3/uL (120.0-450.0); RED CELL DISTRIBUTION WIDTH 16.7 % (11.5-14.5); WHITE BLOOD COUNT 9.6 10^3/ul (4.5-11.0)
[2016-09-20] MEDS: Lidocaine 5% Patch TD SCH (09:44)
[2016-09-20 10:15] VITALS: BP 116/76; PULSE 95; TEMP 98.2; O2SAT 98
--- NOTE | 2016-09-20 10:43 | CP.PCM.PN ---
Subjective - Date & Time of Evaluation Date of Evaluation: 09/20/16 Time of Evaluation: 09:30 - Subjective Subjective: S&E at bedside, chart reviewed. Had several BMs yesterday, feel better. Had dose of relistor on 09/18, was also given lactulose, miralax, these are now on hold. No reports of overt GI bleeding. No N/V or abdominal pain. Await to go for ct scan. Objective - Vital Signs/Intake and Output Vital Signs (last 24 hours): Temp Pulse Resp BP Pulse Ox 98.2 F 95 H 18 116/76 98 09/20/16 10:14 09/20/16 10:14 09/20/16 10:14 09/20/16 10:14 09/20/16 10:14 - Medications Medications: Current Medications Calcium Carbonate (Caltrate) 600 mg PO BID [facility] Last Admin: 09/20/16 09:46 Dose: 600 mg Ergocalciferol (Drisdol 50,000 Intl Units Cap) 1 cap PO Q7D [facility] Last Admin: 09/14/16 11:33 Dose: 1 cap Famotidine (Pepcid) 40 mg PO 1700 [facility] PRN Reason: Protocol Last Admin: 09/19/16 18:21 Dose: 40 mg Gabapentin (Neurontin) 400 mg PO TID ZAC PRN Reason: Protocol Last Admin: 09/20/16 09:45 Dose: 400 mg Hydromorphone HCl (Dilaudid) 1 mg IVP Q6 PRN PRN Reason: pain moderate (4-7) Last Admin: 09/18/16 08:15 Dose: 1 mg Sodium Chloride (Sodium Chloride 0.45%) 1,000 mls @ 50 mls/hr IV .Q20H [facility] Last Admin: 09/18/16 23:55 Dose: 50 mls/hr Lactulose (Enulose) 20 gm PO HS ZAC PRN Reason: Protocol Last Admin: 09/19/16 10:53 Dose: 20 gm Lidocaine (Lidoderm) 1 ea TD DAILY [facility] PRN Reason: Protocol Last Admin: 09/20/16 09:44 Dose: 1 ea Ondansetron HCl (Zofran Inj) 4 mg IVP Q6H PRN; Protocol PRN Reason: Nausea/Vomiting Last Admin: 09/14/16 17:49 Dose: 4 mg Polyethylene Glycol (Miralax) 17 gm PO BID [facility] Last Admin: 09/19/16 18:22 Dose: Not Given Tramadol HCl (Ultram) 50 mg PO TID [facility] PRN Reason: Protocol Last Admin: 09/19/16 18:20 Dose: 50 mg - Labs Labs: 09/20/16 07:30 09/12/16 08:19 - Constitutional Appears: No Acute Distress - Eye Exam Eye Exam: Normal appearance. absent: Scleral icterus - ENT Exam ENT Exam: Mucous Membranes Moist - Neck Exam Neck Exam: Normal Inspection - Respiratory Exam Respiratory Exam: Clear to Ausculation Bilateral, NORMAL BREATHING PATTERN. absent: Respiratory Distress - Cardiovascular Exam Cardiovascular Exam: +S1, +S2 - GI/Abdominal Exam GI & Abdominal Exam: Soft, Normal Bowel Sounds. absent: Distended, Guarding, Tenderness, Rebound - Extremities Exam Extremities Exam: Normal Capillary Refill. absent: Calf Tenderness, Pedal Edema - Neurological Exam Neurological Exam: Alert, Awake, Oriented x3 - Skin Skin Exam: Dry, Warm Assessment and Plan - Assessment and Plan (Free Text) Assessment: ASSESSMENT: Constipation likely secondary to Narcotic Induced constipation, now having BM Compression Fracture s/p Kyphoplasty ITP, s/p IgG infusion PLAN: on Clear Liquid on IVF for hydration on Pepcid laxatives are on hold On dilaudid, lidoderm and Ultram for pain pending ct scan A&P today, spoke to ROHIT Torres Seen and discussed with Dr. Spencer.
== END 2016-09-20 15:25 | disposition home or self-care (01) | DRG 560 ==
LOC: TRCU 12:30
PROVIDERS: ADMIT Internal Medicine; ATTEND Internal Medicine
PROC: F07Z9ZZ Gait Training/Functional Ambulation Treatment (ICD-10-PCS; principal; 2016-09-12)
PROC: F08Z4ZZ Home Management Treatment (ICD-10-PCS; 2016-09-13)
DX: M48.54XD Collapsed vertebra, not elsewhere classified, thoracic region, subsequent encounter for fracture with routine healing (principal); D69.3 Immune thrombocytopenic purpura; Z98.890 Other specified postprocedural states; D64.9 Anemia, unspecified; M81.0 Age-related osteoporosis without current pathological fracture; K59.03 Drug induced constipation; K59.09 Other constipation; T40.605A Adverse effect of unspecified narcotics, initial encounter; M19.90 Unspecified osteoarthritis, unspecified site

== ENCOUNTER 2017-03-22 09:21 | Inpatient (IN) | payer MEDICARE ==
[2017-03-22] MEDS ORDERED: Sodium Chloride 0.9% 1,000 ML IV STA (10:20)
[2017-03-22] MEDS ORDERED: Pantoprazole 40 MG in Sodium Chloride 0.9% 100 ML IV STA (10:20)
[2017-03-22 11:10] LABS: BASO # 0.02 K/mm3 (0.0-2.0); BASO % 0.2 % (0.0-3.0); GRAN # 9.47 (1.4-6.5); GRAN % 85.9 % (50.0-68.0); HEMOGLOBIN 13.5 g/dL (12.0-16.0); LYMPH # 0.9 (1.2-3.4); LYMPH % 7.8 % (22.0-35.0); MEAN CELL VOLUME 84.9 fl (80.0-105.0); MEAN CORPUSCULAR HEMOGLOBIN 28.7 pg (25.0-35.0); MEAN CORPUSCULAR HGB CONC 33.8 g/dl (31.0-37.0); MEAN PLATELET VOLUME 9.5 fl (7.0-11.0); MONO # 0.7 (0.1-0.6); MONO % 6.1 % (1.0-6.0); RBC 4.7 10^6/uL (3.5-6.1); RED CELL DISTRIBUTION WIDTH 15.5 % (11.5-14.5)
[2017-03-22 11:11] LABS: URINE BILIRUBIN MODERATE (NEGATIVE); URINE BLOOD LARGE (NEGATIVE); URINE GLUCOSE (UA) NEGATIVE (NEGATIVE); URINE LEUKOCYTE ESTERASE TRACE Leu/uL (NEGATIVE); URINE NITRATE POSITIVE (NEGATIVE); URINE PROTEIN 100 mg/dL (<30 mg/dL)
--- NOTE | 2017-03-22 11:12 | ED PDOC ---
Arrival/HPI - General Chief Complaint: Abdominal Pain Time Seen by Provider: 03/22/17 10:12 Historian: Patient - History of Present Illness Narrative History of Present Illness (Text): 03/22/17 11:11 72 year old female, whose past medical history includes ITP and kyphoplasty for compression fracture, presents to the emergency department complaining of generalized abdominal pain associated with diarrhea that began yesterday. Patient denies smoking or alcohol use. Patient denies any fever, chills, cough congestion URI, chest pain, shortness of breath, nausea, vomiting, urinary symptoms, back pain, neck pain, headache, dizziness, or any other complaints. Time/Duration: 24 hours Symptom Onset: Sudden Symptom Course: Unchanged Activities at Onset: Light Context: Home Past Medical History - Provider Review Nursing Documentation Reviewed: Yes - Infectious Disease Hx of Infectious Diseases: None - Tetanus Immunization Tetanus Immunization: Unknown - Cardiac Hx Pacemaker: No - Neurological Hx Paralysis: No - Renal Hx Kidney Stones: Yes - Hematological/Oncological Hx Blood Disorders: Yes ("low platelets" as per pt) - Integumentary Other/Comment: small 0.2cm round dry to l knee - Musculoskeletal/Rheumatological Hx Falls: No - Genitourinary/Gynecological Hx Reproductive Disorders: No - Psychiatric Hx Emotional Abuse: No Hx Physical Abuse: No Hx Substance Use: No - Surgical History Other/Comment: 07/20/11 cysto left ureteroscopy, left retrograde pylegram - Anesthesia Hx Anesthesia: Yes Hx Anesthesia Reactions: No Hx Malignant Hyperthermia: No - Suicidal Assessment Feels Threatened In Home Enviroment: No Family/Social History - Physician Review Nursing Documentation Reviewed: Yes Family/Social History: No Known Family HX Smoking Status: Never Smoked Hx Alcohol Use: No Hx Substance Use: No Allergies/Home Meds Allergies/Adverse Reactions: Allergies No Known Allergies Allergy (Verified 09/11/16 13:32) Home Medications: Home Meds Medication Instructions Recorded Confirmed Danazol 100 mg PO BID 11/15/16 03/22/17 Levocetirizine Dihydrochloride 5 mg PO DAILY 11/15/16 03/22/17 Omeprazole 40 mg PO DAILY 11/15/16 03/22/17 Review of Systems - Physician Review All systems were reviewed & negative as marked: Yes - Review of Systems Constitutional: absent: Fevers, Other (Chills) Respiratory: absent: SOB, Other (Cough congestion ) Cardiovascular: absent: Chest Pain Gastrointestinal: Abdominal Pain, Diarrhea. absent: Nausea, Vomiting Genitourinary Female: absent: Dysuria, Frequency, Hematuria Musculoskeletal: absent: Back Pain, Neck Pain Neurological: absent: Headache, Dizziness Physical Exam Vital Signs Reviewed: Yes Vital Signs Temp Pulse Resp BP Pulse Ox 03/22/17 15:53 71 18 121/65 100 03/22/17 12:12 78 18 119/63 100 03/22/17 09:46 97.9 F 102 H 17 120/77 100 Temperature: Afebrile Blood Pressure: Normal Pulse: Regular Respiratory Rate: Normal Appearance: Positive for: Non-Toxic, Comfortable, Cachectic (Thin) Pain Distress: None Mental Status: Positive for: Alert and Oriented X 3 - Systems Exam Head: Present: Atraumatic, Normocephalic Pupils: Present: PERRL Extroacular Muscles: Present: EOMI Conjunctiva: Present: Normal Mouth: Present: Moist Mucous Membranes Neck: Present: Normal Range of Motion Respiratory/Chest: Present: Clear to Auscultation, Good Air Exchange. No: Respiratory Distress, Accessory Muscle Use Cardiovascular: Present: Regular Rate and Rhythm, Normal S1, S2. No: Murmurs Abdomen: Present: Tenderness (Moderate diffuse abdominal tenderness ), Normal Bowel Sounds. No: Distention, Peritoneal Signs, Rebound, Guarding Back: Present: Normal Inspection. No: CVA Tenderness Upper Extremity: Present: Normal Inspection. No: Cyanosis, Edema Lower Extremity: Present: Normal Inspection. No: Edema Neurological: Present: GCS=15, CN II-XII Intact, Speech Normal Skin: Present: Warm, Dry, Normal Color. No: Rashes Psychiatric: Present: Alert, Oriented x 3, Normal Insight, Normal Concentration Medical Decision Making ED Course and Treatment: 03/22/17 11:11 Impression: 71 year old female presents complaining of generalized abdominal pain associated with diarrhea. Plan: -- CT ABD & Pelvis w/o Contrast -- EKG -- Labs -- Chest X-ray -- Protonix Inj -- IV Fluids -- Toradol -- Urine Culture -- ER Insertion Straight Cath -- Urinalysis w/ micro -- Reassess and disposition Progress Notes: PROCEDURE: CT Abdomen and Pelvis without intravenous contrast Dictator : Joesph Garvin MD Report Date : 03/22/2017 11:34:09 IMPRESSION: Minimal inflammatory changes are seen in the fat planes surrounding the ascending colon. There may also be some mural thickening. There is no oral contrast which limits the study. Findings are consistent with mild colitis 03/22/17 12:[address] Franklin who is aware and agrees with the plan. 03/22/17 12:46 Symptoms have improved. 03/22/17 12:48 EKG shows normal sinus rhythm rate approximately [address] or T-wave changes - Lab Interpretations Lab Results: 03/22/17 10:50 03/22/17 10:50 Lab Results 03/22/17 11:03: Urine Color Yellow, Urine Appearance Clear, Urine pH 6.0, Ur Specific [place] >= 1.030, Urine Protein 100 H, Urine Glucose (UA) Negative, Urine Ketones 15 H, Urine Blood Large H, Urine Nitrate Positive H, Urine Bilirubin Moderate H, Urine Urobilinogen 1.0 H, Ur Leukocyte Esterase Trace H, Urine RBC 25 - 30, Urine WBC 2 - 5, Ur Epithelial Cells 6 - 8, Amorphous Sediment Few, Urine Bacteria Many, Hyaline Casts 0 - 2, Fine Granular Casts 0 - 2, Coarse Granular Casts Trace H, Urine Other Uyeast 03/22/17 10:50: Sodium 137, Potassium 4.0, Chloride 102, Carbon Dioxide 23, Anion Gap 17, BUN 24 H, Creatinine 0.8, Est GFR ( Amer) > 60, Est GFR ( Non-Af Amer) > 60, Random Glucose 131 H, Calcium 9.4, Total Bilirubin 0.8, AST 48 H, ALT 25, Alkaline Phosphatase 65, Lactate Dehydrogenase 648, Total Creatine Kinase 34 L, Troponin I < 0.01, Total Protein 9.0 H, Albumin 4.1, Globulin 4.9, Albumin/Globulin Ratio 0.8 L, Amylase 61, Lipase 112 03/22/17 10:50: PT 13.3 H, INR 1.15 H, APTT 25.2 03/22/17 10:50: WBC 11.0 D, RBC 4.70, Hgb 13.5 D, Hct 39.9, MCV 84.9 D, MCH 28.7, MCHC 33.8, RDW 15.5 H, Plt Count 327, MPV 9.5, Gran % 85.9 H, Lymph % ( Auto) 7.8 L, [place] % (Auto) 6.1 H, Eos % (Auto) 0.0 L, Baso % (Auto) 0.2, Gran # 9.47 H, Lymph # 0.9 L, [place] # 0.7 H, Eos # 0.0, Baso # 0.02 I have reviewed the lab results: Yes - RAD Interpretation Radiology Orders: 03/22/17 10:20 ABD & PELVIS W/O PO OR IV CONT [CT] Stat 03/22/17 10:21 CHEST PORTABLE [RAD] Stat Chest 1 view shows no infiltrate or effusion or cardiomegaly Clinical Microbiologist: ED Physician - EKG Interpretation Interpreted by ED Physician: Yes Type: 12 lead EKG - Medication Orders Current Medication Orders: Sodium Chloride (Sodium Chloride 0.9%) 1,000 mls @ 100 mls/hr IV .Q10H STA Stop: 03/22/17 20:19 Last Admin: 03/22/17 10:40 Dose: 100 mls/hr eMAR Start Stop Document 03/22/17 10:40 EQ (Rec: 03/22/17 10:41 EQ [facility] [id number] Intravenous Solution Start Date 03/22/17 Start Time 10:41 Discontinued Medications Pantoprazole Sodium 40 mg/ (Sodium Chloride) 100 mls @ 400 mls/hr IV STAT STA Stop: 03/22/17 10:34 Last Admin: 03/22/17 10:41 Dose: 400 mls/hr eMAR Start Stop Document 03/22/17 10:41 EQ (Rec: 03/22/17 10:41 EQ [id number][place] Intravenous Solution Start Date 03/22/17 Start Time 10:41 Ketorolac Tromethamine (Toradol) 15 mg IVP STAT STA Stop: 03/22/17 10:21 Last Admin: 03/22/17 10:41 Dose: 15 mg MAR Pain Assessment Document 03/22/17 10:41 EQ (Rec: 03/22/17 10:41 EQ [id number][place] Pain Reassessment Is this a pain reassessment? No Sleep Is patient sleeping during reassessment? No Presence of Pain Presence of Pain Yes Pain Scale Used Pain Scale Used Numeric IVP Administration Document 03/22/17 10:41 EQ (Rec: 03/22/17 10:41 EQ [id number][place] Charges for Administration # of IVP Administrations 1 - Scribe Statement The provider has reviewed the documentation as recorded by the Keiry Martinez Provider Keiry Attestation: All medical record entries made by the Keiry were at my direction and personally dictated by me. I have reviewed the chart and agree that the record accurately reflects my personal performance of the history, physical exam, medical decision making, and the department course for this patient. I have also personally directed, reviewed, and agree with the discharge instructions and disposition. Disposition/Present on Arrival - Present on Arrival Any Indicators Present on Arrival: No History of DVT/PE: No History of Uncontrolled Diabetes: No Urinary Catheter: No History of Decub. Ulcer: No History Surgical Site Infection Following: None - Disposition Have Diagnosis and Disposition been Completed?: Yes Diagnosis: Colitis, Abdominal pain, Diarrhea, Hematuria Disposition: HOME/ ROUTINE Disposition Time: 12:47 Patient Plan: Observation Patient Problems: Current Active Problems Problem Status Onset Abdominal pain Acute Colitis Acute Diarrhea Acute Hematuria Acute Condition: IMPROVED
[2017-03-22 11:15] LABS: URINE APPEARANCE CLEAR (CLEAR); URINE COLOR YELLOW (YELLOW)
[2017-03-22 11:22] LABS: URINE BACTERIA MANY (NEG); URINE HYALINE CAST 0 - 2 /hpf; URINE RBC 25 - 30 /hpf (0-2)
[2017-03-22 11:23] LABS: URINE FINE GRANULAR CAST 0 - 2 /hpf (0-2)
[2017-03-22 11:24] LABS: URINE AMORPHOUS SEDIMENT FEW; URINE COARSE GRANULAR CAST TRACE /hpf (0-2)
[2017-03-22 11:28] LABS: ALB/GLOB RATIO 0.8 (1.1-1.8); ALBUMIN 4.1 g/dL (3.0-4.8); ALT/SGPT 25 U/L (7-56); AMYLASE 61 U/L (35-125); AST/SGOT 48 U/L (14-36); BLOOD UREA NITROGEN 24 mg/dL (7-21); CALCIUM 9.4 mg/dL (8.4-10.5); GFR AFRICAN-AMERICAN > 60; GFR NON-AFRICAN AMERICAN > 60; LIPASE 112 U/L (23-300)
[2017-03-22 11:29] LABS: TROPONIN I < 0.01 ng/mL
--- NOTE | 2017-03-22 11:36 | CT ---
PROCEDURE: CT Abdomen and Pelvis without intravenous contrast HISTORY: pain COMPARISON: None. TECHNIQUE: Without contrast.. Contrast Dose: Radiation dose: Total exam DLP = 188 mGy-cm. This CT exam was performed using one or more of the following dose reduction techniques: Automated exposure control, adjustment of the mA and/or kV according to patient size, and/or use of iterative reconstruction technique. FINDINGS: LOWER THORAX: Unremarkable. LIVER: Unremarkable. No gross lesion or ductal dilatation. GALLBLADDER AND BILE DUCTS: Unremarkable. PANCREAS: Unremarkable. No gross lesion or ductal dilatation. SPLEEN: Unremarkable. ADRENALS: Unremarkable. No mass. KIDNEYS AND URETERS: Unremarkable. No hydronephrosis. No solid mass. VASCULATURE: Unremarkable. No aortic aneurysm. BOWEL: Minimal inflammatory changes are seen in the fat planes surrounding the ascending colon. There may also be some mural thickening. There is no oral contrast which limits the study. Findings are consistent with mild colitis APPENDIX: No evidence of appendicitis PERITONEUM: Unremarkable. No free fluid. No free air. LYMPH NODES: Unremarkable. No enlarged lymph nodes. BLADDER: Unremarkable. REPRODUCTIVE: Unremarkable. BONES: No acute fracture. OTHER FINDINGS: None. IMPRESSION: Minimal inflammatory changes are seen in the fat planes surrounding the ascending colon. There may also be some mural thickening. There is no oral contrast which limits the study. Findings are consistent with mild colitis
[2017-03-22 11:37] LABS: INR 1.15 (0.93-1.08); PARTIAL THROMBOPLASTIN TIME 25.2 Seconds (25.1-36.5); PROTHROMBIN TIME 13.3 SECONDS (9.4-12.5)
--- NOTE | 2017-03-22 14:10 | RAD ---
HISTORY: ap COMPARISON: 08/10/2016 FINDINGS: LUNGS: No active pulmonary disease. PLEURA: No significant pleural effusion identified, no pneumothorax apparent. CARDIOVASCULAR: Normal. OSSEOUS STRUCTURES: No significant abnormalities. VISUALIZED UPPER ABDOMEN: Normal. OTHER FINDINGS: None. IMPRESSION: No active disease.
--- NOTE | 2017-03-22 16:56 | CARD ---
APPROVED REPORT EKG Measurement Heart [id number] <Conclusion> Normal sinus rhythm Normal ECG
[2017-03-22] MEDS ORDERED: cefTRIAXone 1,000 MG in Sodium Chloride 0.9% 50 ML IVPB SCH (17:45)
[2017-03-22] MEDS: metroNIDAZOLE IV 500 mg/100 ml 500 MG/100 ML BAG IVPB SCH ×2 (17:59→22:34)
[2017-03-22] MEDS: cefTRIAXone 1 gm 1 GM/100 ML BAG IVPB SCH (18:44)
[2017-03-22 19:26] VITALS: BMI 17.6
[2017-03-23] MEDS: metroNIDAZOLE IV 500 mg/100 ml 500 MG/100 ML BAG IVPB SCH ×3 (05:03→22:14)
[2017-03-23] MEDS: DANAZOL PO SCH ×2 (13:18→17:23)
--- NOTE | 2017-03-23 14:13 | CP.PCM.CON ---
<Pina Estevez - Last Filed: 03/23/17 14:13> History of Present Illness - History of Present Illness History of Present Illness: Seen and examined at the bedside earlier today, chart reviewed. Request for GI consult is for colitis. HPI: This is a 71-year-old female whois mainly Sami speaking, nurse Jaci is at bedside for interpretation.This patient came with complaints of generalized abdominal pain and diarrhea. The patient reports that it started 3 days ago, denies fever or chills nausea or vomiting. Denies any recent travel or antibiotic use or sick contacts are contributory food intake. No complaints of any melena or bright red blood. Reports "dark" stool. Guiac positive. On admission the patient had a CT scan of abdomen and pelvis which reported inflammation in the descending colon may be some mural thickening consistent with mild colitis. Currently the patient denies abdominal pain she is still having diarrhea but no reports of bleeding. Denies having EGD or colonoscopy. PMH: ITP, compression fracture, H pylori PSH: recent kyphoplasty, denies abdominal or cardiac procedure Allergies: NKDA MEDS: reviewed as per MAR Social Hx: denies smoking, drug, etoh ROS: systems reviewed with positive findings, see HPI Past Patient History - Infectious Disease Hx of Infectious Diseases: None - Tetanus Immunizations Tetanus Immunization: Unknown - Past Social History Smoking Status: Never Smoked - CARDIAC Hx Pacemaker: No - NEUROLOGICAL Hx Paralysis: No - RENAL Hx Kidney Stones: Yes - HEMATOLOGICAL/ONCOLOGICAL Hx Blood Disorders: Yes ("low platelets" as per pt) - INTEGUMENTARY Other/Comment: small 0.2cm round dry to l knee - MUSCULOSKELETAL/RHEUMATOLOGICAL Hx Falls: Yes - GENITOURINARY/GYNECOLOGICAL Hx Reproductive Disorders: No - PSYCHIATRIC Hx Emotional Abuse: No Hx Physical Abuse: No - SURGICAL HISTORY Other/Comment: 07/20/11 cysto left ureteroscopy, left retrograde pylegram - ANESTHESIA Hx Anesthesia: Yes Hx Anesthesia Reactions: No Hx Malignant Hyperthermia: No Meds Allergies/Adverse Reactions: Allergies Allergy/AdvReac Type Severity Reaction Status Date / Time No Known Allergies Allergy Verified 09/11/16 13:32 - Medications Medications: Current Medications Acetaminophen (Tylenol 325mg Tab) 650 mg PO Q4H PRN PRN Reason: Pain, Mild (1-3) Last Admin: 03/22/17 17:56 Dose: 650 mg Danazol (Danazol) 100 mg PO BID [facility] Last Admin: 03/23/17 13:18 Dose: Not Given Metronidazole (Flagyl) 500 mg in 100 mls @ 100 mls/hr IVPB Q8 [facility] PRN Reason: Protocol Last Admin: 03/23/17 13:36 Dose: 100 mls/hr Ceftriaxone Sodium (Rocephin 1 Gram Ivpb) 1 gm in 100 mls @ 200 mls/hr IVPB Q24H [facility] Last Admin: 03/22/17 18:44 Dose: 200 mls/hr Tramadol HCl (Ultram) 50 mg PO TID PRN PRN Reason: Pain, moderate (4-7) Last Admin: 03/23/17 03:16 Dose: 50 mg Physical Exam - Constitutional Appears: No Acute Distress - Head Exam Head Exam: NORMOCEPHALIC - Eye Exam Eye Exam: Normal appearance. absent: Scleral icterus - ENT Exam ENT Exam: Mucous Membranes Moist - Neck Exam Neck exam: Positive for: Normal Inspection - Respiratory Exam Respiratory Exam: Decreased Breath Sounds, NORMAL BREATHING PATTERN. absent: Rales, Wheezes, Respiratory Distress - Cardiovascular Exam Cardiovascular Exam: +S1, +S2 - GI/Abdominal Exam GI & Abdominal Exam: Normal Bowel Sounds, Soft, Tenderness. absent: Guarding, Rebound Additional comments: Diffuse tenderness no rebound or guarding - Extremities Exam Extremities exam: Positive for: pedal pulses present. Negative for: calf tenderness, pedal edema - Neurological Exam Neurological exam: Alert, Oriented x3 - Skin Skin Exam: Dry, Warm Results - Vital Signs Recent Vital Signs: Last Vital Signs Temp 97.8 F 03/23/17 06:00 Pulse 88 03/23/17 06:00 Resp 18 03/23/17 06:00 BP 103/61 03/23/17 06:00 Pulse Ox 99 03/23/17 06:00 - Labs Result Diagrams: 03/22/17 10:50 03/22/17 10:50 Assessment & Plan - Assessment and Plan (Free Text) Assessment: Assessment: Abdominal pain/ Diarrhea,status post CT scan found to have colitis, rule out infectious, inflammatory or ischemic colitis UTI History of ITP History of H. pylori Plan: Follow up stool culture, urine culture Continue IV antibiotics on Flagyl and Rocephin Continue clear liquids Monitor electrolytes Pain management GI prophylaxis, start Pepcid 20 mg twice a day Patient may benefit from an elective outpatient colonoscopy when colitis has resolved, patient has never had colonoscopy. As per ID Thank you for this consult and for allowing us to participate in your patient's care, further recommendations based upon clinical course. Seen and discussed with Dr. Spencer. <Cleopatra Spencer V - Last Filed: 03/23/17 22:28> Meds - Medications Medications: Current Medications Acetaminophen (Tylenol 325mg Tab) 650 mg PO Q4H PRN PRN Reason: Pain, Mild (1-3) Last Admin: 03/22/17 17:56 Dose: 650 mg Home Med (Home Med) 100 unit PO BID [facility] Stop: 04/06/17 09:14 Metronidazole (Flagyl) 500 mg in 100 mls @ 100 mls/hr IVPB Q8 [facility] PRN Reason: Protocol Last Admin: 03/23/17 22:14 Dose: 100 mls/hr Ceftriaxone Sodium (Rocephin 1 Gram Ivpb) 1 gm in 100 mls @ 200 mls/hr IVPB Q24H [facility] Last Admin: 03/23/17 17:14 Dose: 200 mls/hr Famotidine (Pepcid 20mg/50ml Premix) 20 mg in 50 mls @ 100 mls/hr IVPB Q12 [facility] Last Admin: 03/23/17 22:14 Dose: 100 mls/hr Tramadol HCl (Ultram) 50 mg PO TID PRN PRN Reason: Pain, moderate (4-7) Last Admin: 03/23/17 03:16 Dose: 50 mg Results - Vital Signs Recent Vital Signs: Last Vital Signs Temp 97.8 F 03/23/17 06:00 Pulse 88 03/23/17 06:00 Resp 18 03/23/17 06:00 BP 103/61 03/23/17 06:00 Pulse Ox 99 03/23/17 06:00 - Labs Result Diagrams: 03/22/17 10:50 03/22/17 10:50 Attending/Attestation - Attestation I have personally seen and examined this patient.: Yes I have fully participated in the care of the patient.: Yes I have reviewed all pertinent clinical information: Yes Notes (Text): This is an addendum to GI consult report dictated by Pina Estevez APN.The patient was seen and examined earlier. Medical records, lab studies, imagings were reviewed. Last 24 hours events reviewed. Agreed with the above treatment plan as outlined in Pina Estevez APN's notes the with the addition of the following on examination patient has tenderness in the right side of the abdomen. No rebound or guarding The CT scan was reviewed colitis etiology ischemic vs inflammatory versus infectious Continue IV antibiotics Follow up stool studies Slowly advance diet as per clinical course Elective colonoscopic evaluation 03/23/17 22:26
[2017-03-23] MEDS: cefTRIAXone 1 gm 1 GM/100 ML BAG IVPB SCH (17:14)
--- NOTE | 2017-03-23 20:47 | HP ---
PRIMARY CARE DOCTOR: Clarence Jasso MD CHIEF COMPLAINT AND HISTORY OF PRESENT ILLNESS: This is a 71-year-old female, who is coming into the hospital because of abdominal pain. The patient has a past history of kyphoplasty of the back because of compression fracture and ITP. She said she was having abdominal pain, mostly in the periumbilical area. She was having diarrhea. She said this began the day before coming into the ER. She denies any bloody bowel movement. She denies any nausea and vomiting. She has not been eating well, and she has no complaints of any fevers or chills. No headaches. No dysuria. No nausea. No weakness in the arms or in the legs. She states the pain was about 4 to 5 out of 10. REVIEW OF SYSTEMS: All other review of systems are within normal limits. PAST MEDICAL HISTORY: 1. ITP. 2. Nephrolithiasis. 3. Chronic back pain. PAST SURGICAL HISTORY: She had a cystoscopy in 06/2011, kyphoplasty for T9. FAMILY HISTORY: Noncontributory. ALLERGIES: NO KNOWN DRUG ALLERGIES. HOME MEDICATIONS: Danazol, omeprazole, levocetirizine. PHYSICAL EXAMINATION: VITAL SIGNS: The patient has a temperature of 99.2, pulse of 80, blood pressure of 116/74, respirations 18, and O2 saturation is 100%. Height is 5 feet 3 inches, weight is 100 pounds, BMI is 17.7. GENERAL: The patient lying in bed, uncomfortable, and in no acute distress. HEENT: Atraumatic and normocephalic. Anicteric sclerae. Moist mucosa. [place] conjunctivae. No oral lesions. NECK: No JVD, anterior and posterior adenopathy, thyromegaly, or bruits. CARDIOVASCULAR: S1 and S2 regular. No murmur, rubs, or gallop. LUNGS: Clear to auscultation bilaterally. No wheezes, rales, or rhonchi. ABDOMEN: There is periumbilical tenderness. No rebound. No guarding. EXTREMITIES: No cyanosis, clubbing, or edema. NEUROLOGIC: No facial asymmetry. Tongue is midline. No uvula deviation. Power is 5/5 upper extremity and lower extremity. Sensation intact in upper extremity and lower extremity. PSYCHIATRIC: She is awake, alert and oriented x3. No anxiety or depression. She has normal affect. GENITOURINARY: No CVA tenderness. VASCULAR: 2+ pulses in the carotid pulses and pedal pulses. SKIN: No erythema or nodules SPINE: Shows normal curvature. LABORATORY DATA: White count of 11, hemoglobin is 13.5. INR is 1.1. Creatinine 0.8, alkaline phosphatase is 65, troponin is 0.01, albumin is 4.1. We have urine that shows blood large, nitrites positive, bilirubin moderate. Chest x-ray done shows no active disease. CT of the abdomen and pelvis done shows minimal inflammatory changes seen in the fat planes surrounding the ascending colon. EKG shows sinus rhythm at 77 with a QTc of 434. ASSESSMENT: 1. Colitis. 2. History of idiopathic thrombocytopenia. 3. Nephrolithiasis. 4. Osteoarthritis. PLAN: The patient is currently comfortable. She was placed on Flagyl and Rocephin. The patient was given IV fluids. Pain is controlled. She is on Tylenol and Ultram. I have asked Dr. Spencer from GI to see the patient and also Dr. Alcala. She is on a liquid diet. She is going to get physical therapy as well. Yury Franklin MD
--- NOTE | 2017-03-23 21:23 | CON ---
DATE: 03/23/2017 LOCATION: The patient is seen in [facility], bed 1, earlier this morning. CHIEF COMPLAINT: She states that she is having abdominal pain for two days. HISTORY OF PRESENT ILLNESS: This is a 72-year-old female with a history of compression fracture, history of ITP, who was admitted with abdominal pain. She states that she is having diarrhea. No fevers and chills. No chest pain. No dysuria or frequency. PAST MEDICAL HISTORY: Significant for ITP, compression fracture. PAST SURGICAL HISTORY: Significant for kyphoplasty and ureteral cystoscopy with left ureteral evaluation. The patient also had a bone marrow aspiration. ALLERGIES: THE PATIENT HAS NO KNOWN ALLERGIES. MEDICATIONS: Medications at home include tramadol, omeprazole, Danazol, and calcium. PHYSICAL EXAMINATION: GENERAL: The patient is in bed. No acute distress. VITAL SIGNS: She felt that she is feeling better this morning with a temperature of 98 and 99.2, respiratory rate of 18, heart rate of 72. Blood pressure is 150/70. HEENT: Unremarkable. NECK: Supple. LUNGS: Have decreased breath sounds. HEART: Normal S1 and S2. ABDOMEN: Soft, nontender. No organomegaly. No rebound. No guarding. No masses. LABORATORY EXAMINATION: Revealed a white count of 11,000, hemoglobin of 13, platelets of 327. Chemistries revealed a BUN of 24, creatinine of 0.8. Urinalysis is noted, and 2 to 5 wbc's. CAT scan of the abdomen and pelvis is noted to have mild colitis. Chest x-ray is negative. ASSESSMENT AND PLAN: This is a 72-year-old female with idiopathic thrombocytopenic purpura and compression fracture. The patient gets intravenous steroids, presenting now with mild colitis, and we will treat the patient with ceftriaxone and Flagyl. We will check on HIV blood test because of the idiopathic thrombocytopenic purpura and check on the stool for norovirus and stool cultures, blood cultures, urine cultures; and we will make further recommendations pending initial workup results. We will follow closely with you. Chuy Alcala MD
[2017-03-23] MEDS: Famotidine 20mg/50ml 20 MG/50 ML BAG IVPB SCH (22:14)
[2017-03-24] MEDS: metroNIDAZOLE IV 500 mg/100 ml 500 MG/100 ML BAG IVPB SCH ×3 (05:16→21:19)
[2017-03-24 06:26] LABS: MEAN CELL VOLUME 85.2 fl (80.0-105.0); MEAN CORPUSCULAR HEMOGLOBIN 28.1 pg (25.0-35.0); MEAN CORPUSCULAR HGB CONC 32.9 g/dl (31.0-37.0); MEAN PLATELET VOLUME 9.4 fl (7.0-11.0); RBC 3.99 10^6/uL (3.5-6.1); RED CELL DISTRIBUTION WIDTH 15.4 % (11.5-14.5); WHITE BLOOD COUNT 7.2 10^3/ul (4.5-11.0)
[2017-03-24 06:28] LABS: HEMOGLOBIN 11.2 g/dL (12.0-16.0)
--- NOTE | 2017-03-24 06:43 | PN ---
DATE: 03/24/2017 SUBJECTIVE: The patient has no complaints of any chest pain and no shortness of breath. No headaches. She states that the abdominal pain is better. PHYSICAL EXAMINATION VITAL SIGNS: Temperature is 97.9, pulse is 75, blood pressure is 101/64, and respirations are 18. GENERAL: The patient is lying in bed, flat, comfortable. HEENT: No oral lesion. Anicteric sclerae. Moist mucosa. NECK: No JVD, adenopathy, or thyromegaly. CARDIOVASCULAR: S1 and S2, regular. No murmurs, rubs, or gallops. LUNGS: Clear to auscultation bilaterally. No wheeze, rales, or rhonchi. ABDOMEN: Bowel sounds are positive, soft, nontender and nondistended. EXTREMITIES: No cyanosis, clubbing or edema. LABORATORY DATA: Have been reviewed. ASSESSMENT: 1. Colitis. 2. Nephrolithiasis. 3. Osteoarthritis. 4. History of idiopathic thrombocytopenic purpura. PLAN: The patient is currently comfortable. She is on Flagyl. She is going to continue with the Rocephin antibiotics she is on and tramadol for pain. She is on a liquid diet. She is clinically improving. Yury Franklin MD
[2017-03-24 07:01] LABS: ALB/GLOB RATIO 0.8 (1.1-1.8); ALT/SGPT 39 U/L (7-56); AST/SGOT 39 U/L (14-36); BLOOD UREA NITROGEN 10 mg/dL (7-21); CALCIUM 8.3 mg/dL (8.4-10.5); GFR AFRICAN-AMERICAN > 60; GFR NON-AFRICAN AMERICAN > 60
[2017-03-24] MEDS: Famotidine 20mg/50ml 20 MG/50 ML BAG IVPB SCH ×2 (09:33→21:18)
--- NOTE | 2017-03-24 14:44 | PN ---
DATE: 03/24/2017 SUBJECTIVE: The patient is in bed, seen earlier today. She is doing well. No nausea or vomiting. PHYSICAL EXAMINATION: VITAL SIGNS: Temperature is 98, blood pressure is 120/60, respiratory rate of 16. HEENT: Unremarkable. NECK: Supple. LUNGS: Decreased breath sounds. HEART: Normal S1, S2. ABDOMEN: Soft, nontender. LABORATORY DATA: Reveals a white count of 7000, hemoglobin of 11 and chemistries are noted and the urinalysis is noted and serology is noted. Microbiology reveals the blood cultures are negative. C. diff is negative antigen and toxin. The stool cultures are pending. ASSESSMENT AND PLAN: This is a 71-year-old female with idiopathic thrombocytopenic purpura and compression fracture. The patient is presenting with mild colitis with negative stool Clostridium difficile antigen and toxin, stool cultures are pending. Currently, on ceftriaxone and Flagyl and GI review, consultation is noted. Dr. Franklin's progress notes are reviewed. If the stool cultures are negative, we will discontinue the antibiotics. Chuy Alcala MD
--- NOTE | 2017-03-24 16:10 | CP.PCM.PN ---
<Pina Estevez - Last Filed: 03/24/17 16:09> Subjective - Date & Time of Evaluation Date of Evaluation: 03/24/17 (Box shoe immunity is still go) Time of Evaluation: 10:25 - Subjective Subjective: Seen and examined at the bedside earlier today, chart reviewed. Patient abdominal pain improving, had small liquid BM, no reports of bleeding, nausea, vomiting fever or chills. Patient reports feeling better. Tolerating oral intake. No acute overnight events. No reports of overt GI bleed. Objective - Vital Signs/Intake and Output Vital Signs (last 24 hours): Temp Pulse Resp BP Pulse Ox 97.7 F 73 16 128/66 98 03/24/17 12:00 03/24/17 12:00 03/24/17 12:00 03/24/17 12:00 03/23/17 23:00 Intake and Output: 03/24/17 03/24/17 06:59 18:59 Intake Total 1070 Balance 1070 - Medications Medications: Current Medications Acetaminophen (Tylenol 325mg Tab) 650 mg PO Q4H PRN PRN Reason: Pain, Mild (1-3) Last Admin: 03/22/17 17:56 Dose: 650 mg Home Med (Home Med) 100 unit PO BID [facility] Stop: 04/06/17 09:14 Last Admin: 03/24/17 09:33 Dose: 100 unit Metronidazole (Flagyl) 500 mg in 100 mls @ 100 mls/hr IVPB Q8 [facility] PRN Reason: Protocol Last Admin: 03/24/17 13:22 Dose: 100 mls/hr Ceftriaxone Sodium (Rocephin 1 Gram Ivpb) 1 gm in 100 mls @ 200 mls/hr IVPB Q24H [facility] Last Admin: 03/23/17 17:14 Dose: 200 mls/hr Famotidine (Pepcid 20mg/50ml Premix) 20 mg in 50 mls @ 100 mls/hr IVPB Q12 [facility] Last Admin: 03/24/17 09:33 Dose: 100 mls/hr Tramadol HCl (Ultram) 50 mg PO TID PRN PRN Reason: Pain, moderate (4-7) Last Admin: 03/23/17 03:16 Dose: 50 mg - Labs Labs: 03/24/17 05:10 03/24/17 05:10 PT 13.3 SECONDS (9.4-12.5) H 03/22/17 10:50 INR 1.15 (0.93-1.08) H 03/22/17 10:50 APTT 25.2 Seconds (25.1-36.5) 03/22/17 10:50 - Constitutional Appears: No Acute Distress - Eye Exam Eye Exam: Normal appearance. absent: Scleral icterus - ENT Exam ENT Exam: Mucous Membranes Moist - Neck Exam Neck Exam: Normal Inspection - Respiratory Exam Respiratory Exam: NORMAL BREATHING PATTERN. absent: Respiratory Distress - Cardiovascular Exam Cardiovascular Exam: +S1, +S2 - GI/Abdominal Exam GI & Abdominal Exam: Soft, Tenderness, Normal Bowel Sounds. absent: Guarding, Organomegaly, Rebound Additional comments: mild mid abdominal tenderness no rebound or guarding - Extremities Exam Extremities Exam: absent: Calf Tenderness, Pedal Edema - Neurological Exam Neurological Exam: Alert, Awake, Oriented x3 - Skin Skin Exam: Dry, Warm Assessment and Plan - Assessment and Plan (Free Text) Assessment: Assessment: Abdominal pain/ Diarrhea,status post CT scan found to have colitis, rule out infectious, inflammatory or ischemic colitis UTI History of ITP History of H. pylori Plan: Follow up stool culture, urine culture Continue IV antibiotics on Flagyl and Rocephin advance diet to full liquids, if patient continues to improve advance to soft low residual diet Monitor electrolytes Pain management continue Pepcid 20 mg twice a day Patient may benefit from an elective outpatient colonoscopy when colitis has resolved, patient has never had colonoscopy. As per ID Seen and discussed with Dr. Spencer. <Cleopatra Spencer V - Last Filed: 03/24/17 22:21> Objective - Vital Signs/Intake and Output Vital Signs (last 24 hours): Temp Pulse Resp BP Pulse Ox 97.7 F 73 16 128/66 98 03/24/17 12:00 03/24/17 12:00 03/24/17 12:00 03/24/17 12:00 03/23/17 23:00 - Medications Medications: Current Medications Acetaminophen (Tylenol 325mg Tab) 650 mg PO Q4H PRN PRN Reason: Pain, Mild (1-3) Last Admin: 03/22/17 17:56 Dose: 650 mg Home Med (Home Med) 100 unit PO BID [facility] Stop: 02/07/18 09:14 Last Admin: 03/24/17 17:26 Dose: 100 unit Metronidazole (Flagyl) 500 mg in 100 mls @ 100 mls/hr IVPB Q8 [facility] PRN Reason: Protocol Last Admin: 03/24/17 21:19 Dose: 100 mls/hr Ceftriaxone Sodium (Rocephin 1 Gram Ivpb) 1 gm in 100 mls @ 200 mls/hr IVPB Q24H [facility] Last Admin: 03/24/17 17:26 Dose: 200 mls/hr Famotidine (Pepcid 20mg/50ml Premix) 20 mg in 50 mls @ 100 mls/hr IVPB Q12 [facility] Last Admin: 03/24/17 21:18 Dose: 100 mls/hr Tramadol HCl (Ultram) 50 mg PO TID PRN PRN Reason: Pain, moderate (4-7) Last Admin: 03/23/17 03:16 Dose: 50 mg - Labs Labs: 03/24/17 05:10 03/24/17 05:10 PT 13.3 SECONDS (9.4-12.5) H 03/22/17 10:50 INR 1.15 (0.93-1.08) H 03/22/17 10:50 APTT 25.2 Seconds (25.1-36.5) 03/22/17 10:50 Attending/Attestation - Attestation I have personally seen and examined this patient.: Yes I have fully participated in the care of the patient.: Yes I have reviewed all pertinent clinical information, including history, physical exam and plan: Yes Notes (Text): This is an addendum to GI progress report dictated by Pina Estevez APN.The patient was seen and examined earlier. Medical records, lab studies, imagings were reviewed. Last 24 hours events reviewed. Agreed with the above treatment plan as outlined in Pina Estevez APN's notes the with the addition of the following On examination abdomen soft nontender Patient on clear liquid diet TO low residue soft diet Continue the antibiotics Elective EGD and colonoscopy as an outpatient Discussed with the patient at length Thank you very much for allowing us to participate in the care of the patient 03/24/17 22:20
[2017-03-24] MEDS ORDERED: Potassium Chloride 40 mEq/30 ml LIQ UD PO ONE (16:59)
[2017-03-24] MEDS: cefTRIAXone 1 gm 1 GM/100 ML BAG IVPB SCH (17:26)
[2017-03-25 04:57] VITALS: BP 112/70; PULSE 70; RESP 18; TEMP 98.5; O2SAT 97
[2017-03-25] MEDS: metroNIDAZOLE IV 500 mg/100 ml 500 MG/100 ML BAG IVPB SCH (05:05)
[2017-03-25 07:22] LABS: BASO # 0.04 K/mm3 (0.0-2.0); BASO % 0.8 % (0.0-3.0); EOS % 0.4 % (1.5-5.0); GRAN # 2.78 (1.4-6.5); GRAN % 58.8 % (50.0-68.0); HEMOGLOBIN 11.4 g/dL (12.0-16.0); LYMPH # 1.4 (1.2-3.4); LYMPH % 29.7 % (22.0-35.0); MEAN CELL VOLUME 85.2 fl (80.0-105.0); MEAN CORPUSCULAR HEMOGLOBIN 27.7 pg (25.0-35.0); MEAN CORPUSCULAR HGB CONC 32.6 g/dl (31.0-37.0); MEAN PLATELET VOLUME 9.5 fl (7.0-11.0); MONO # 0.5 (0.1-0.6); MONO % 10.3 % (1.0-6.0); RBC 4.11 10^6/uL (3.5-6.1); RED CELL DISTRIBUTION WIDTH 15.5 % (11.5-14.5); WHITE BLOOD COUNT 4.7 10^3/ul (4.5-11.0)
[2017-03-25] MEDS ORDERED: Potassium Chloride 20 mEq ER Tab PO ONE (08:16)
[2017-03-25] MEDS: Famotidine 20mg/50ml 20 MG/50 ML BAG IVPB SCH (09:49)
--- NOTE | 2017-03-25 10:52 | CP.PCM.PN ---
Subjective - Date & Time of Evaluation Date of Evaluation: 03/25/17 Time of Evaluation: 09:50 - Subjective Subjective: S&E at bedside, chart reviewed. No acute overnight events, Denies diarrhea, no GI bleeding. Abdominal pain better, tolerating oral intake of solids. No new complaints. Objective - Vital Signs/Intake and Output Vital Signs (last 24 hours): Temp Pulse Resp BP Pulse Ox 98.5 F 70 18 112/70 97 03/25/17 04:56 03/25/17 04:56 03/25/17 04:56 03/25/17 04:56 03/25/17 04:56 Intake and Output: 03/25/17 03/25/17 06:59 18:59 Intake Total 200 Output Total 2 Balance 198 - Medications Medications: Current Medications Acetaminophen (Tylenol 325mg Tab) 650 mg PO Q4H PRN PRN Reason: Pain, Mild (1-3) Last Admin: 03/22/17 17:56 Dose: 650 mg Home Med (Home Med) 100 unit PO BID [facility] Stop: 04/06/17 09:14 Last Admin: 03/25/17 09:52 Dose: 100 unit Metronidazole (Flagyl) 500 mg in 100 mls @ 100 mls/hr IVPB Q8 [facility] PRN Reason: Protocol Last Admin: 03/25/17 05:05 Dose: 100 mls/hr Ceftriaxone Sodium (Rocephin 1 Gram Ivpb) 1 gm in 100 mls @ 200 mls/hr IVPB Q24H [facility] Last Admin: 03/24/17 17:26 Dose: 200 mls/hr Famotidine (Pepcid 20mg/50ml Premix) 20 mg in 50 mls @ 100 mls/hr IVPB Q12 [facility] Last Admin: 03/25/17 09:49 Dose: 100 mls/hr Tramadol HCl (Ultram) 50 mg PO TID PRN PRN Reason: Pain, moderate (4-7) Last Admin: 03/23/17 03:16 Dose: 50 mg - Labs Labs: 03/25/17 06:45 03/24/17 05:10 PT 13.3 SECONDS (9.4-12.5) H 03/22/17 10:50 INR 1.15 (0.93-1.08) H 03/22/17 10:50 APTT 25.2 Seconds (25.1-36.5) 03/22/17 10:50 - Constitutional Appears: No Acute Distress - Eye Exam Eye Exam: Normal appearance. absent: Scleral icterus - ENT Exam ENT Exam: Mucous Membranes Moist - Respiratory Exam Respiratory Exam: Decreased Breath Sounds, NORMAL BREATHING PATTERN. absent: Rales, Wheezes, Respiratory Distress - Cardiovascular Exam Cardiovascular Exam: +S1, +S2 - GI/Abdominal Exam GI & Abdominal Exam: Soft, Normal Bowel Sounds. absent: Guarding, Tenderness, Organomegaly, Rebound - Extremities Exam Extremities Exam: absent: Calf Tenderness, Pedal Edema - Neurological Exam Neurological Exam: Alert, Awake, Oriented x3 Assessment and Plan - Assessment and Plan (Free Text) Assessment: Assessment: Abdominal pain/ Diarrhea,status post CT scan found to have colitis, rule out infectious, inflammatory or ischemic colitis UTI History of ITP History of H. pylori Plan: stool culture pending results on IV antibiotics on Flagyl and Rocephin continue diet as tolerated Monitor electrolytes Pain management continue Pepcid 20 mg twice a day discuss w/ patient would benefit from elective outpatient colonoscopy when colitis has resolved, patient has never had colonoscopy. antibiotics as per ID Seen and discussed with Dr. Spencer
--- NOTE | 2017-03-26 01:56 | DS ---
HOSPITAL COURSE: This is a 71-year-old female, who had come into the hospital because of abdominal pain. She was found to have a colitis. She was started on IV antibiotics. The patient had improvement of her belly pain. She had improvement of her diarrhea. She was advancing her diet and she did tolerate her diet. She has no complaints of any headaches or dizziness. She was advised about getting a colonoscopy, and follow up with Gastroenterology. She has no headaches or dizziness. No nausea. No vomiting. PHYSICAL EXAMINATION: VITAL SIGNS: Temperature is 98.5, pulse is 70, blood pressure is 112/70, respirations 18, and O2 saturation 97%. GENERAL: The patient is lying in bed, flat, comfortable. HEENT: No oral lesion. Anicteric sclerae. Moist mucosa. NECK: No JVD, adenopathy, or thyromegaly. CARDIOVASCULAR: S1 and S2, regular. No murmurs, rubs, or gallops. LUNGS: Clear to auscultation bilaterally. No wheeze, rales, or rhonchi. ABDOMEN: Bowel sounds are positive, soft, nontender, and nondistended. EXTREMITIES: No cyanosis, clubbing or edema. ASSESSMENT: 1. Colitis. 2. Nephrolithiasis. 3. Osteoarthritis. 4. History of idiopathic thrombocytopenic purpura. PLAN: The patient's platelet count has been normal. She is receiving Flagyl and Rocephin for antibiotics. She is receiving Tylenol p.r.n. The patient is receiving famotidine. She is on a regular diet. CONDITION: Stable. ACTIVITIES: Increase as tolerated. Yury Franklin MD
== END 2017-03-25 14:30 | disposition home or self-care (01) | DRG 392 ==
LOC: ED 09:21 → ERH 12:43 → 2A 17:13 → OBSVTOIN 03-23 10:56
PROVIDERS: ADMIT Internal Medicine Nephrology; ATTEND Internal Medicine Nephrology
DX: K52.9 Noninfective gastroenteritis and colitis, unspecified (principal); D69.3 Immune thrombocytopenic purpura; N39.0 Urinary tract infection, site not specified; N20.0 Calculus of kidney; G89.29 Other chronic pain; M19.90 Unspecified osteoarthritis, unspecified site; Z86.19 Personal history of other infectious and parasitic diseases

== ENCOUNTER 2018-03-01 13:52 | Outpatient (CLI) | payer OTHER | END 2018-03-01 13:53 | disposition home or self-care (01) | LOC: OPLAB 13:52 ==

== ENCOUNTER 2018-03-02 12:42 | Outpatient (CLI) | payer OTHER | END 2018-03-02 12:43 | disposition home or self-care (01) | LOC: OPLAB 12:42 ==

== ENCOUNTER 2018-03-03 11:57 | Outpatient (CLI) | payer OTHER | END 2018-03-03 11:58 | disposition home or self-care (01) | LOC: OPLAB 11:57 ==

== ENCOUNTER 2018-04-03 12:30 | Outpatient (CLI) | payer OTHER | END 2018-04-03 12:31 | disposition home or self-care (01) | LOC: OPLAB 12:30 ==

== ENCOUNTER 2018-04-04 12:36 | Outpatient (CLI) | payer OTHER | END 2018-04-04 12:37 | disposition home or self-care (01) | LOC: OPLAB 12:36 ==

== ENCOUNTER 2018-04-05 11:31 | Outpatient (CLI) | payer OTHER | END 2018-04-05 11:32 | disposition home or self-care (01) | LOC: OPLAB 11:31 ==

== ENCOUNTER 2018-05-02 12:58 | Outpatient (CLI) | payer OTHER | END 2018-05-02 12:59 | disposition home or self-care (01) | LOC: OPLAB 12:58 ==

== ENCOUNTER 2018-05-03 13:52 | Outpatient (CLI) | payer OTHER | END 2018-05-03 13:53 | disposition home or self-care (01) | LOC: OPLAB 13:52 ==

== ENCOUNTER 2018-06-05 12:35 | Outpatient (CLI) | payer OTHER | END 2018-06-05 12:36 | disposition home or self-care (01) | LOC: OPLAB 12:35 ==

== ENCOUNTER → 2018-06-06 | Outpatient (CLI) | payer OTHER | LOC: LAB 12:10 ==

== ENCOUNTER → 2018-06-07 | Outpatient (CLI) | payer OTHER | LOC: OPLAB 13:25 ==

== ENCOUNTER 2018-07-03 12:41 | Outpatient (CLI) | payer OTHER | END 2018-07-03 12:42 | disposition home or self-care (01) | LOC: OPLAB 12:41 ==

== ENCOUNTER → 2018-07-04 | Outpatient (CLI) | payer OTHER | LOC: OPLAB 12:22 ==